=== PATIENT | male | born 1935 | race African-American/Black ===

== ENCOUNTER 2017-08-03 09:06 | Observation (INO) | payer OTHER ==
--- OUTSIDE RECORDS SUMMARY | 2017-08-03 09:09 | XMS REPORT | Clinical Summary ---
:1935 Author Organization [facility] Address [address] [place] [address] Care Team Providers Name Role Phone Asked, No Pcp Primary Care Provider Unavailable Allergies No Known Allergies Current Medications Not on file Active Problems Not on file Encounters Date Type Specialty Care Team Description 10/15/2016 Emergency Emergency Medicine ObiJyothi Altered mental status, MD Tania unspecified altered mental status type (Primary Dx) after 08/02/2016 Social History Tobacco Use Types Packs/Day Years Used Date Never Smoker Alcohol Use Drinks/Week oz/Week Comments No Sex Assigned at Date Recorded Not on file Last Filed Vital Signs Vital Sign Reading Time Taken Blood Pressure 99/53 10/15/2016 2:30 PM CDT Pulse 54 10/15/2016 2:30 PM CDT Temperature 36.8 C (98.3 F) 10/15/2016 2:30 PM CDT Respiratory Rate 17 10/15/2016 2:30 PM CDT Oxygen Saturation 98% 10/15/2016 2:30 PM CDT Inhaled Oxygen Concentration - - Weight - - Height 175.3 cm (5' 9") 10/15/2016 8:55 AM CDT Body Mass Index - - Plan of Treatment Health Maintenance Due Date Last Done Comments ZOSTER VACCINE 1997 PNEUMOCOCCAL POLYSACCHARIDE VACCINE AGE 65 AND OVER 2002 PNEUMOCOCCAL-13 2002 INFLUENZA VACCINE 11/29/2017 Results Bedside glucose (10/15/2016 10:57 AM) Component Value Ref Range POC glucose 107 Specimen Performing Laboratory Blood Urinalysis screen and microscopy, with reflex to culture (10/15/2016 10:15 AM) Component Value Ref Range Specimen site Catheterized Color, UA Straw Appearance, UA Clear Specific gravity, UA 1.012 1.001 - 1.035 pH, UA 7.0 5.0 - 8.5 Protein, UA Negative Negative Glucose, UA Negative Negative Ketones, UA Negative Negative Bilirubin, UA Negative Negative Blood, UA Negative Negative Nitrite, UA Negative Negative Urobilinogen, UA <2.0 <2.0 Leukocyte esterase, UA Negative Negative Epithelial cells, UA <1 /HPF WBC, UA <1 0 - 1 /HPF RBC, UA <1 0 - 1 /HPF Bacteria, UA Few None seen Yeast, UA None seen Yeast with pseudohyphae, UA None seen Specimen Performing Laboratory Urine [facility] OF PATHOLOGY AND [employer] MEDICINE [address] [facility] [place] [address] Estimated GFR (10/15/2016 10:15 AM) Component Value Ref Range GFR Non Af Amer 53 (A) mL/min/1.73 m2 GFR Af Amer 65 mL/min/1.73 m2 Comment: Chronic kidney disease: <60 mL/min/1.73m2 Kidney failure: <15 mL/min/1.73m2 The estimated GFR is calculated from the IDMS-traceable Modification of Diet in Renal Disease Equation. The accuracy of the calculation is poor when the creatinine is normal. Calculated values >90 mL/min/1.73m2 are not reported. This equation has not been validated in children (<18 years), women, the elderly (>70 years), or ethnic groups other than Caucasians and Americans. Specimen Performing Laboratory Plasma specimen [facility] AND [employer] [facility] [address] [facility] [place] [address] Troponin (10/15/2016 10:15 AM) Component Value Ref Range Troponin <0.10 0.00 - 0.10 ng/mL Comment: 0.11 - 1.49 ng/mlMay indicate increased risk of acute coronary syndrome. >=1.5 ng/mlConsistent with acute myocardial infarction. The diagnostic value of a single normal or non-diagnostic result is questionable.Serial samples at 2-6 hour intervals are required to rule out acute myocardial injury. Specimen Performing Laboratory Plasma specimen [facility] AND [employer] [facility] [address] [facility] [place] [address] Urine drugs of abuse screen (10/15/2016 10:15 AM) Component Value Ref Range Amphetamine screen, urine Negative Methamphetamine screen, urine SEE COMMENT Comment: Test Not Performed. Methamphetamines and Methadone are not available from the college athletic director. If needed, contact the Laboratory to send to the referral laboratory Barbiturate screen, urine Negative Benzodiazepine screen, urine Negative Cocaine screen, urine Negative Methadone screen, urine SEE COMMENTComment: Test Not Performed. Opiates screen, urine Negative Phencyclidine screen, urine Negative Cannabinoid screen, urine Negative Tricyclic screen, urine Negative Comment: Drug screen minimum concentration of detectability Wujsivmkweot0744 ng/mL Xkvqltchpgsyswha1421 ng/mL Barbiturates 300 ng/mL Ddmhljpuyaxnkwe510 ng/mL Rphnywv353 ng/mL Sokqkkqbr384 ng/mL Zsyvfrz144 ng/mL Phencyclidine 25 ng/mL Uzihwayitsru99 ng/mL Xrrvxrhsji6815 ng/mL Negative test results indicates presumptive evidence of lack of clinically significant drug concentration in this urine specimen. Positive test results are presumptive evidence of clinically significant drug concentration in this urine specimen. Testing performed for medical purposes only. Specimen Performing Laboratory Urine [facility] DEPARTMENT OF PATHOLOGY AND [employer] [facility] [address] [facility] [place] [address] Partial thromboplastin time, activated (10/15/2016 10:15 AM) Component Value Ref Range PTT 34.6 23.0 - 36.0 sec Comment: PTT therapeutic range for unfractionated heparin is 61.0-112.0 seconds which corresponds to Anti-Xa 0.3-0.7 U/ml. Specimen Performing Laboratory Blood [facility]OLOG[facility] AND [facility] [address] [facility] [place] [address] Prothrombin time with INR (10/15/2016 10:15 AM) Component Value Ref Range Prothrombin time 13.4 12.0 - 15.0 sec INR 1.0 Comment: The International Normalized Ratio (INR) is a therapeutic monitoring tool for patients who are stable on oral anticoagulant therapy. An INR of 2.0-3.0 is suggested for deep vein thrombosis/pulmonary embolism. Specimen Performing Laboratory Blood [facility] PATHOLOGY AND [employer] MEDICINE [address] [facility] [place] [address] CBC with platelet and differential (10/15/2016 10:15 AM) Component Value Ref Range WBC 4.38 (L) 4.50 - 11.00 k/uL RBC 4.29 (L) 4.40 - 6.00 m/uL HGB 11.9 (L) 14.0 - 18.0 g/dL HCT 35.0 (L) 41.0 - 51.0 % MCV 81.6 (L) 82.0 - 100.0 fL MCH 27.7 27.0 - 34.0 pg MCHC 34.0 31.0 - 37.0 g/dL RDW - SD 50.0 37.0 - 55.0 fL MPV 11.0 8.8 - 13.2 fL Platelet count 217 150 - 400 k/uL Neutrophils 53.1 39.0 - 69.0 % Lymphocytes 32.0 25.0 - 45.0 % Monocytes 13.9 (H) 0.0 - 10.0 % Eosinophils 0.5 0.0 - 5.0 % Basophils 0.5 0.0 - 1.0 % Specimen Performing Laboratory Blood [facility] [address] [place] [address] Urine culture (10/15/2016 10:15 AM) Component Value Ref Range Urine culture SEE COMMENTComment: Bacteriuria screen negative. Specimen Performing Laboratory [facility] [address] [place] [address] B natriuretic peptide (10/15/2016 10:15 AM) Component Value Ref Range BNP 160 (H) 0 - 100 pg/mL Specimen Performing Laboratory Blood [facility] PATHOLOGY [address] [address] Creatine kinase, total (CPK) (10/15/2016 10:15 AM) Component Value Ref Range Creatine kinase 152 35 - 200 U/L Specimen Performing Laboratory Plasma specimen [facility] PATHOLOGY [facility] MEDICINE [address] [place] [address] Alcohol level, blood (10/15/2016 10:15 AM) Component Value Ref Range Alcohol None Detected mg/dL Comment: Normal None Detected Legal Intoxication in [place]80 mg/dL (0.08%) - Whole Blood Toxic Chraqpebrwucy599 mg/dL (0.2%) Potentially Vkoce437 - 500 mg/dL (0.35 - 0.5%) Alcohol percent None Detected % Specimen Performing Laboratory Plasma specimen [facility] PATHOLOGY AND [facility] MEDICINE [address] [place] [address] Comprehensive metabolic panel (10/15/2016 10:15 AM) Component Value Ref Range Sodium 146 135 - 148 mEq/L Potassium 4.1 3.5 - 5.0 mEq/L Chloride 108 99 - 109 mEq/L CO2 29 24 - 31 mEq/L Anion gap 9 7 - 15 mEq/L Comment: Starting from July , anion gap calculation no longer incorporates potassium. Please note the change. BUN 24 8 - 24 mg/dL Creatinine 1.3 0.5 - 1.5 mg/dL Glucose 88 65 - 99 mg/dL Calcium 9.7 8.6 - 10.6 mg/dL Protein 7.8 6.3 - 8.2 g/dL Albumin 3.7 3.5 - 5.0 g/dL A/G ratio 0.9 0.7 - 3.8 Alkaline phosphatase 77 30 - 115 U/L AST 42 15 - 46 U/L ALT 47 10 - 55 U/L Total bilirubin 0.6 0.2 - 1.2 mg/dL Specimen Performing Laboratory Plasma specimen [facility] DEPARTMENT OF PATHOLOGY AND GENOMIC MEDICINE [address] [place] [address] ECG 12 lead (10/15/2016 9:24 AM) Component Value Ref Range Ventricular rate 85 Atrial rate 85 OH interval 164 QRSD interval 70 QT interval 372 QTC interval 442 P axis 1 92 QRS axis 1 -54 T wave axis 59 EKG impression Normal sinus rhythm-Possible Left atrial enlargement-Left axis deviation-ST & T wave abnormality, consider lateral ischemia-Abnormal ECG-No previous ECGs available- Specimen Performing Laboratory [facility] [address] [place] [address] CT Head Wo Contrast (10/15/2016 9:18 AM) Specimen Performing Laboratory [facility] [address] [place] [address] Narrative EXAMINATION:CT HEAD WO CONTRAST COMPARISON:None CLINICAL HISTORY:AMS TECHNIQUE: Up to date CT equipment and radiation dose reduction technique were utilized. FINDINGS: There are small vessel ischemic changes of the white matter. 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 There are no other areas of abnormal density. There is no mass or extra-axial fluid collection. The ventricles and sulci are prominent compatible with age-related volume loss. There are calcifications in the internal carotid arteries. The sinuses and mastoids are clear. IMPRESSION: Chronic age-related changes. [facility]-[id number] Procedure Note Interface, Radiology Results Incoming - 10/15/2016 9:23 AM CDT EXAMINATION: CT HEAD WO CONTRAST COMPARISON: None CLINICAL HISTORY: AMS TECHNIQUE: Up to date CT equipment and radiation dose reduction technique were utilized. FINDINGS: There are small vessel ischemic changes of the white matter. 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 There are no other areas of abnormal density. There is no mass or extra-axial fluid collection. The ventricles and sulci are prominent compatible with age-related volume loss. There are calcifications in the internal carotid arteries. The sinuses and mastoids are clear. IMPRESSION: Chronic age-related changes. [facility]-[id number] XR Chest 1 Vw Portable (10/15/2016 9:14 AM) Specimen Performing Laboratory [facility] [address] [place] [address] Narrative EXAMINATION:XR CHEST 1 VW PORTABLE CLINICAL HISTORY:AMSr o pneumonia COMPARISON:None IMPRESSION: 1.Lungs are clear. 2.Normal heart size. Coronary stent. 3.Mild tortuosity and atherosclerosis thoracic aorta. 4.Sternotomy wires are intact. [facility]-[id number] Procedure Note Interface, Radiology Results Incoming - 10/15/2016 9:18 AM CDT EXAMINATION: XR CHEST 1 VW PORTABLE CLINICAL HISTORY: AMS r o pneumonia COMPARISON: None IMPRESSION: 1. Lungs are clear. 2. Normal heart size. Coronary stent. 3. Mild tortuosity and atherosclerosis thoracic aorta. 4. Sternotomy wires are intact. [facility]-[id number] after 08/02/2016 Insurance Payer Benefit Plan / Group Subscriber ID Type Phone Address MEDICARE MEDICARE PART A AND B xxxxxxxxxxx Medicare [place], [place] MEDICAID MEDICAID xxxxxxxxx Medicaid Home: [facility] [place]UN VELASQUEZ [phone] [address]
--- OUTSIDE RECORDS SUMMARY | 2017-08-03 09:09 | XMS REPORT ---
:1935 [facility] Address [address] [place] [address] [place] [address] Care Team Providers Name Role Phone DR NOELLE GOLD Unavailable Unavailable Problems This patient has no known problems. Allergies, Adverse Reactions, Alerts This patient has no known allergies or adverse reactions. Medications This patient has no known medications. Encounters Start End Encounter Admission Attending Care Care Encounter Date/Time Date/Time Type Type Clinicians Facility Department ID 2017-05-20 2017-05-31 Inpatient E AMPARO GOLDYahaira KSU [id number] 16:47:00 12:30:00 NOELLE Results Test Description Test Time Test Comments Text Results Atomic Results Result Comments URINALYSIS WITH MICRO 2017-05-20 19:19:00 Test Item Value Reference Range Comments COLOR (test code=COLU) YELLOW YELLOW CLARITY (test code=CLA) CLEAR CLEAR GLUCOSE UR (test code=UA GLUCOSE) NEGATIVE NEGATIVE BILI UR (test code=BILE) NEGATIVE NEGATIVE KETONES UR (test code=KALYAN) NEGATIVE NEGATIVE SP GRAVITY (test code=SPGR) 1.015 1.005-1.030 PH UR (test code=PH) 6.0 4.5-8.0 PROTEIN UR (test code=PU) TRACE NEGATIVE UROBIL UR (test code=UROQ) 1.0 EU/dL 0.2-1.0 NITRITE UR (test code=NITRITE) NEGATIVE NEGATIVE BLOOD UR (test code=UA BLOOD) NEGATIVE NEGATIVE LEUK ES UR (test code=LEUK) NEGATIVE NEGATIVE WBC UR (test code=UWBC) 1 /HPF 0-3 RBC UR (test code=URBC) 0 /HPF 0-2 EPITH UR (test code=UEPC) NONE /LPF NONE BACTERIA UR (test code=UBACT) FEW /HPF NONE CAST UR (test code=CAST) /LPF NONE CRYSTAL UR (test code=CRYU) / LPF NONE MUCUS UR (test code=MUC) / HPF NONE AMORPH UR (test code=DOE) / HPF NONE TRICH UR (test code=UTRICH) /HPF NONE YEAST UR (test code=UY) /HPF NONE SPERM UR (test code=USPERM) /HPF NONE COMPREHENSIVE METABOLIC [id number] 19:16:00 Test Item Value Reference Range Comments GLUCOSE (test code=06D) 83 mg/dL 75-100 SODIUM (test code=01A) 143 mmol/L 136-145 POTASSIUM (test code=01B) 4.5 mmol/L 3.6-5.1 CHLORIDE (test code=04A) 112 mmol/L 98-107 CO2 (test code=02A) 22 mmol/L 22-32 ANION GAP (test code=ANG) 13.5 mmol/L BUN (test code=05D) 15 mg/dL 7-18 CREATININE (test code=03E) 1.4 mg/dL 0.7-1.3 BUN/CREA (test code=BCR) 11 12-20 CALCIUM (test code=09D) 8.2 mg/dL 8.3-9.5 BILI TOTAL (test code=11A) 0.3 mg/dL 0.2-1.0 PROTEIN (test code=07D) 7.3 g/dL 6.4-8.2 ALBUMIN (test code=08D) 3.5 g/dL 3.5-4.8 GLOBULIN (test code=GLB) 3.8 g/dL 1.5-3.8 ALB/GLOB (test code=AGRR) 0.9 1.0-2.6 ALK PHOS (test code=35A) 57 IU/L 42-121 AST (test code=30A) 48 IU/L <=42 ALT (test code=31A) 43 IU/L <=78 ALCOHOL BLOOD (ETOH)2017-05-20 19:16:00 Test Item Value Reference Range Comments ETOH (test code=HALC) ETHANOL The result is to be used only for medical purposes ALCOHOL (test code=56A) <10 mg/dL <=10 [id number] 19:16:00 Test Item Value Reference Range Comments ACETAMINPH (test code=94M) <2.0 ug/mL 10.0-30.0 DRUGS OF [id number] 19:12:00 Test Item Value Reference Range Comments DRUG SCRN (test code=HDOA) URINE DRUG SCREEN This is an unconfirmed screening result and should not be used for non-medical purposes CANNABINOD (test code=88C) Negative NEGATIVE AMPHETAMINE (test code=84A) Negative NEGATIVE BENZODIAZP (test code=86A) Negative NEGATIVE BARBITURAT (test code=85A) Negative NEGATIVE OPIATES (test code=92B) Negative NEGATIVE COCAINE (test code=87A) Negative NEGATIVE PHENCYCLID (test code=66A) Negative NEGATIVE METHADONE (test code=64A) Negative NEGATIVE DOAH (test code=DOAH) URINE DRUG SCREEN Cut-off values are as follows: ---- Cannabinoids 50 ng/mL Cocaine 300 ng/mL Amphetamines 1000 ng/mL Phencyclidine 25 ng/mL Benzodiazepines 200 ng.mL Methadone 300 ng/mL Barbiturates 200 ng/mL Opiates 2000 ng/mL AMMONIA [id number] 19:01:00 Test Item Value Reference Range Comments AMMONIA (test code=54A) 20 umol/L 11-32 XR CHEST 1 VIEW [id number] 17:10:18Exam: Chest portable erectLocation: D4.History: medical clearanceComparison: NoneFindings:The lungs are clear. No infiltrate or effusion is seen. The pulmonaryvasculature is normal. The heart size is mildly enlarged. 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 Atherosclerosis involves the aorta. The mediastinalsilhouette is unremarkable. The bony thorax is intact with degenerative changesnoted.Impression:No acute disease.
[2017-08-03 10:19] LABS: Absolute Lymphocytes (CBC) 0.5 K/uL (0.7-4.9); Absolute Monocytes 0.3 K/uL (0.1-1.3); Absolute Neutrophil 3.4 K/uL (1.8-8.0); Basophils % 0.5 % (0-1.3); Eosinophils % 0.9 % (0-4.4); Hematocrit 31.1 % (39.6-49.0); Lymphocytes % 12.7 % (15.3-44.8); MCH 29.5 pg (27.0-35.0); MCV 88.5 fL (80-100); MPV 9.6 fL (7.6-11.3); Monocytes % 7.4 % (3.3-12.3); RBC Red Blood Cell Count 3.51 M/uL (4.33-5.43)
--- NOTE | 2017-08-03 10:30 | RAD REPORT ---
EXAM DESCRIPTION: Anish Single View08/03/2017 9:39 am CLINICAL HISTORY: Cough COMPARISON: March 2017 FINDINGS: Mild interstitial lung opacities are unchanged. The heart is mildly enlarged. Postsurgica l changes involve the chest IMPRESSION: Mild interstitial pulmonary opacities may represent mild interstitial pulmonary edema or be chronic
--- NOTE | 2017-08-03 10:40 | RAD REPORT ---
EXAM DESCRIPTION: CT - Head Brain Wo Cont - 08/03/2017 10:26 am CLINICAL HISTORY: CVA COMPARISON: 04/26/2017 TECHNIQUE: All CT scans are performed using dose optimization technique as appropriate and may inclu de automated exposure control or mA/KV adjustment according to patient size. FINDINGS: No intracranial hemorrhage, hydrocephalus or extra-axial fluid collection.Advanced general ized brain atrophy is present with advanced periventricular and deep white matter chronic microvascul ar ischemic changes.No areas of brain edema or evidence of midline shift. The paranasal sinuses and mastoids are clear. The calvarium is intact. IMPRESSION: No acute intracranial abnormality.
[2017-08-03] MEDS ORDERED: IPRATROPIUM BROM 0.5MG/2.5ML ONE (10:44)
[2017-08-03] MEDS ORDERED: ALBUTEROL 2.5 MG/3 ML NEB SOL ONE (10:44)
[2017-08-03] MEDS ORDERED: predniSONE 20 MG TAB ONE (10:44)
[2017-08-03 12:11] LABS: Protime INR 1.23
[2017-08-03 12:20] LABS: Potassium 4.1 mEq/L (3.6-5.0)
[2017-08-03 12:26] LABS: Albumin 3.6 g/dL (3.2-5.5); Bilirubin Direct 0.3 mg/dL (0-0.2); Magnesium 2.2 mg/dL (1.8-2.5); Protein, Total 7.2 g/dL (6.0-8.3)
[2017-08-03 12:29] LABS: CKMB Creatine Kinase MB 3.1 ng/ml (0.3-4.0)
[2017-08-03 12:37] LABS: Urine Amorphous Sediment 2+ /HPF (NONE SEEN); Urine Bacteria <20 /HPF (NONE SEEN); Urine Culture Reflex Order NOT NEEDED; Urine RBC <5 /HPF (NONE SEEN)
[2017-08-03] MEDS ORDERED: NITROGLYCERIN 1 GM PKT TD ONE (13:16)
[2017-08-03] MEDS ORDERED: CLOPIDOGREL 75 MG TABLET ONE (13:17)
[2017-08-03] MEDS ORDERED: ASPIRIN 325 MG TAB ONE (13:17)
--- NOTE | 2017-08-03 13:28 | EDPHYS ---
Physician Documentation [facility] Name: Ace Zuniga Age: 81 yrs Sex: Male : 1935 Arrival Date: 08/03/2017 Time: 09:12 Bed 4 Private MD: ED Physician Ralph Roque HPI: 08/03 12:38 This 81 yrs old Black Male presents to ER via EMS with complaints of Cough, Shortness pm1 Of Breath, Weakness. 12:38 The patient has shortness of breath at rest. Onset: The symptoms/episode began/occurred pm1 yesterday. Associated signs and symptoms: Pertinent positives: Cough, Pertinent negatives: chest pain, fever, nausea, vomiting. Severity of symptoms: Pain is currently a 0 / 10. The patient has not experienced similar symptoms in the past. The patient has been recently seen by a physician:. 12:38 Seen by his PCP for cough evaluation on 08/02. Impression atelectasis at that time and pm1 treated with nebulizer therapy with planned follow up chest X-ray. Patient sent to the ER from [facility] due to hypotension 99/76 and shortness of breath. Patient had a nonproductive cough for 2-3 days. Patient is alert to self only. Patient complaining of shortness of breath. No chest pain. . 12:38 patient did not get any of his medications this AM per prison RN. pm1 Historical: - Allergies: 09:21 No Known Allergies; ae1 - PMHx: 09:21 Alzheimers; Diabetes - NIDDM; GERD; Hyperlipidemia; Hypertension; Myocardial ae1 infarction; weakness,generalized; - Immunization history:: Adult Immunizations up to date. - Social history:: Smoking status: unknown. ROS: 13:00 Constitutional: Negative for fever, chills, and weight loss, Eyes: Negative for injury, pm1 pain, redness, and discharge, ENT: Negative for injury, pain, and discharge, Neck: Negative for injury, pain, and swelling, Cardiovascular: Negative for chest pain, palpitations, and edema. 13:00 Abdomen/GI: Negative for abdominal pain, nausea, vomiting, diarrhea, and constipation, Back: Negative for injury and pain, : Negative for injury, bleeding, discharge, and swelling, MS/Extremity: Negative for injury and deformity, Skin: Negative for injury, rash, and discoloration. 13:00 Respiratory: Positive for cough, shortness of breath, Negative for sputum production. 13:00 Neuro: Positive for weakness, Negative for syncope, near syncope. 13:00 Unable to obtain ROS due to baseline dementia, alzheimers. Exam: 13:00 Constitutional: This is a well developed, well nourished patient who is awake, alert, pm1 and in no acute distress. Head/Face: Normocephalic, atraumatic. Eyes: Pupils equal round and reactive to light, extra-ocular motions intact. Lids and lashes normal. Conjunctiva and sclera are non-icteric and not injected. Cornea within normal limits. Periorbital areas with no swelling, redness, or edema. ENT: Nares patent. No nasal discharge, no septal abnormalities noted. Tympanic membranes are normal and external auditory canals are clear. Oropharynx with no redness, swelling, or masses, exudates, or evidence of obstruction, uvula midline. Mucous membranes moist. Neck: Trachea midline, no thyromegaly or masses palpated, and no cervical lymphadenopathy. Supple, full range of motion without nuchal rigidity, or vertebral point tenderness. No Meningismus. Chest/axilla: Normal chest wall appearance and motion. Nontender with no deformity. No lesions are appreciated. 13:00 Abdomen/GI: Soft, non-tender, with normal bowel sounds. No distension or tympany. No guarding or rebound. No evidence of tenderness throughout. Back: No spinal tenderness. No costovertebral tenderness. Full range of motion. Skin: Warm, dry with normal turgor. Normal color with no rashes, no lesions, and no evidence of cellulitis. MS/ Extremity: Pulses equal, no cyanosis. Neurovascular intact. Full, normal range of motion. 13:00 Cardiovascular: Rate: normal, Rhythm: regular, Pulses: no pulse deficits are appreciated, Edema: pedal edema, that is mild. 13:00 Respiratory: the patient does not display signs of respiratory distress, Respirations: normal, Breath sounds: rhonchi, are heard diffusely. Vital Signs: 09:13 BP 153 / 107; Pulse 100; Resp 23; Pulse Ox 91% on R/A; ae1 09:43 Temp 98.1(O); Weight 64.41 kg (R); ae1 09:43 BP 165 / 108; Pulse 76; Resp 24; Pulse Ox 97% on 2 lpm NC; mh5 10:56 BP 162 / 108; Pulse 93; Resp 25 S; Pulse Ox 98% on 8% Nebulizer Mask; ae1 11:59 BP 155 / 106; Pulse 91; Resp 20; Pulse Ox 98% on 2 lpm NC; ae1 13:22 BP 152 / 88; Pulse 73; Resp 23; Pulse Ox 98% on 2 lpm NC; ae1 MDM: 09:24 Patient medically screened. pm1 12:23 Data reviewed: vital signs. pm1 13:21 Data interpreted: Pulse oximetry: on 2L(s) per nasal canula, is 98 %. Interpretation: pm1 normal. Counseling: I had a detailed discussion with the patient and/or guardian regarding: the historical points, exam findings, and any diagnostic results supporting the discharge/admit diagnosis, lab results, radiology results, the need for further work-up and treatment in the hospital. 08/03 09:25 Order name: Basic Metabolic Panel; Complete Time: 12:48 pm08/03 09:25 Order name: BNP; Complete Time: 12:29 pm08/03 09:25 Order name: CBC with Diff; Complete Time: 10:30 pm08/03 09:25 Order name: Ckmb; Complete Time: 12:48 pm08/03 09:25 Order name: CPK; Complete Time: 12:48 pm08/03 09:25 Order name: LFT's; Complete Time: 12:48 pm08/03 09:25 Order name: Magnesium; Complete Time: 12:48 pm08/03 09:25 Order name: PT-INR; Complete Time: 12:48 pm08/03 09:25 Order name: Ptt, Activated; Complete Time: 12:48 pm1 08/03 09:25 Order name: Troponin (emerg Dept Use Only); Complete Time: 12:29 pm08/03 09:50 Order name: Blood Culture EDMS 08/03 09:25 Order name: XRAY Chest (1 view); Complete Time: 10:31 pm1 08/03 09:25 Order name: EKG; Complete Time: 09:26 pm08/03 09:25 Order name: Cardiac monitoring; Complete Time: 09:43 pm08/03 09:25 Order name: EKG - Nurse/Tech; Complete Time: 09:43 pm1 08/03 09:25 Order name: IV Saline Lock; Complete Time: 10:13 pm1 08/03 09:33 Order name: CT Head Brain wo Cont; Complete Time: 10:48 pm1 08/03 09:50 Order name: Procalcitonin; Complete Time: 13:28 ss 08/03 09:50 Order name: Lactate; Complete Time: 12:29 ss 08/03 11:53 Order name: Urine Microscopic Only; Complete Time: 12:48 ae1 08/03 12:00 Order name: Urine Dipstick--Ancillary (enter results) ag 08/03 14:44 Order name: Diet Ada 1800 Stu; Complete Time: 14:44 ae1 08/03 09:25 Order name: Labs collected and sent; Complete Time: 11:53 pm1 08/03 09:25 Order name: O2 Per Protocol; Complete Time: 09:43 pm1 08/03 09:25 Order name: O2 Sat Monitoring; Complete Time: 09:43 pm1 08/03 09:25 Order name: Urine Dipstick-Ancillary (obtain specimen); Complete Time: 11:53 pm1 08/03 11:54 Order name: Straight Cath - Urine; Complete Time: 11:54 ae1 Administered Medications: 10:24 Drug: Albuterol - atroVENT (3:1) (2.5 mg - 0.5 mg) 3 ml Route: Nebulizer; ae1 12:17 Follow up: Response: Wheezing diminished ae1 10:40 Drug: predniSONE 60 mg Route: PO; ae1 13:00 Drug: Nitro-Bid Ointment 2 % 1 inches Route: Transdermal; Site: anterior chest wall; ae1 13:23 Follow up: Response: Blood sugar is lowered ae1 13:08 Drug: Aspirin 325 mg Route: PO; ae1 13:08 Drug: PlaVIX 75 mg Route: PO; ae1 Disposition: 16:15 Co-signature as Attending Physician, Ralph Roque MD I agree with the assessment and hood plan of care. Disposition: 08/03/17 13:27 Hospitalization ordered by Rosey Miranda for Observation. Preliminary diagnosis are Acute combined systolic (congestive) and diastolic (congestive) heart failure, Shortness of breath. - Bed requested for Telemetry/MedSurg (observation). - Status is Observation. ae1 - Condition is Stable. - Problem is new. - Symptoms have improved. UTI on Admission? No Signatures: Dispatcher [employer] EDRalph Mckeon, Yanira Chavis MD, cha, Patrick, BEATER ENGINEER HELPER BEATER ENGINEER HELPER pm1 Camacho Mathur, RN RN ae1
--- NOTE | 2017-08-03 13:28 | ER ---
Nurse's Notes [facility] Name: Ace Zuniga Age: 81 yrs Sex: Male : 1935 Arrival Date: 08/03/2017 Time: 09:12 Bed 4 Private MD: Diagnosis: Acute combined systolic (congestive) and diastolic (congestive) heart failure;Shortness of breath Presentation: 08/03 09:34 Presenting complaint: EMS states: SOB, weakness and cough since yesterday. Transition ae1 of care: [facility]. Onset of symptoms was August 02, 2017 at 08:00. Care prior to arrival: Orthostatics stable, v/s, pulsein the 80s, 152/94, O2 96%. 09:34 Method Of Arrival: EMS: [facility] ae1 09:34 Acuity: SYLVAIN 3 ae1 Triage Assessment: 10:15 General: Appears in no apparent distress. uncomfortable, slender, Behavior is calm, ae1 quiet. Pain: Denies pain. Respiratory: Reports shortness of breath cough that is productive, labored breathing Onset: The symptoms/episode began/occurred gradually. Respiratory: the patient has moderate shortness of breath. Historical: - Allergies: 09:21 No Known Allergies; ae1 - PMHx: 09:21 Alzheimers; Diabetes - NIDDM; GERD; Hyperlipidemia; Hypertension; Myocardial ae1 infarction; weakness,generalized; - Immunization history:: Adult Immunizations up to date. - Social history:: Smoking status: unknown. Screenin:04 Abuse screen: Denies threats or abuse. Nutritional screening: No deficits noted. ae1 Tuberculosis screening: No symptoms or risk factors identified. Fall Risk Secondary diagnosis (15 points) Alzheimer's, IV access (20 points). Ambulatory Aid- None/Bed Rest/Nurse Assist (0 pts). Gait- Weak (10 pts.). Mental Status- Overestimates/Forgets Limitations (15 pts.). Assessment: 09:37 Pain: Denies pain. Neuro: Level of Consciousness is awake, obeys commands, Oriented to ae1 person. Cardiovascular: Heart tones S1 S2 present Patient's skin is warm and dry. Rhythm is regular. Respiratory: Airway is patent Respiratory effort is even, with retractions, shallow, Mildly labored. Respiratory: Breath sounds are diminished in left posterior lower lobe, right posterior middle lobe and right posterior lower lobe Breath sounds with wheezes in left posterior upper lobe and right posterior upper lobe. GI: Abdomen is flat, non-distended, Bowel sounds present X 4 quads. : No signs and/or symptoms were reported regarding the genitourinary system. Patient is wearing adult brief. 11:06 Reassessment: automotive specialty technician at bedside attempting to obtain the rest of blood orders. ae1 EENT: No signs and/or symptoms were reported regarding the EENT system. Derm: Skin is normal. Musculoskeletal: Reports Generalized weakness. 11:59 Reassessment: Patient appears less labored, ISHMAEL wheezes still present but decreased. ae1 12:40 Reassessment: Spoke to RENETTA Dacosta via telephone at [facility], Praneeth states ae1 patient has not had any of his scheduled medications today. Praneeth also states patient's baseline neuro status is oriented to self. 14:03 Reassessment: New brief applied, omar-area cleansed, patient repositioned with total ae1 assist. Pillow and warm blankets applied. 14:37 Reassessment: urinal provided, patient encouraged to urinate to provide urine sample. ae1 Patient attempted to provide urine, patient states he is unable to urinate at this time but will continue to try. Will continue to monitor. 15:16 Reassessment: Per provider ok to cancel blood cultures. ae1 15:19 Reassessment: Report called to [place], via telephone, receiving nurse. Registration ae1 notified that report has been called. Vital Signs: 09:13 BP 153 / 107; Pulse 100; Resp 23; Pulse Ox 91% on R/A; ae1 09:43 Temp 98.1(O); Weight 64.41 kg (R); ae1 09:43 BP 165 / 108; Pulse 76; Resp 24; Pulse Ox 97% on 2 lpm NC; mh5 10:56 BP 162 / 108; Pulse 93; Resp 25 S; Pulse Ox 98% on 8% Nebulizer Mask; ae1 11:59 BP 155 / 106; Pulse 91; Resp 20; Pulse Ox 98% on 2 lpm NC; ae1 13:22 BP 152 / 88; Pulse 73; Resp 23; Pulse Ox 98% on 2 lpm NC; ae1 ED Course: 09:12 Patient arrived in ED. ae1 09:13 Camacho Mathur, RENETTA is Primary Nurse. ae1 09:19 Harrison Cox NP is PHCP. pm1 09:19 Ralph Roque MD is Attending Physician. pm1 09:34 EKG done, by video game technician. reviewed by Harrison Cox NP. at1 09:36 X-ray completed. Portable x-ray completed in exam room. Patient tolerated procedure sw well. 09:37 Triage completed. ae1 09:37 Missed attempt(s): 22 gauge in right antecubital area. mh5 09:39 XRAY Chest (1 view) In Process Unspecified. EDMS 09:43 Arm band placed on right wrist. EKG completed in triage. Results shown to MD. ae1 09:44 Bed in low position. Call light in reach. Side rails up X 1. proposal editor on. Pulse ae1 ox on. NIBP on. Warm blanket given. 10:17 CT completed. Patient tolerated procedure well. Patient moved to CT via stretcher. sj Patient moved back from CT. 10:18 Inserted saline lock: 20 gauge in right EJ, using aseptic technique. ,using aseptic ae1 technique. By Harrison Cox NP Blood collected. Missed attempt(s): 22 gauge in left antecubital area. 10:28 CT Head Brain wo Cont In Process Unspecified. EDMS 11:57 Straight cath inserted, using sterile technique, Specimen obtained. 15 FR Returned ae1 clear yellow urine. Patient tolerated well. 13:22 Rosey Miranda MD is Hospitalizing Provider. pm1 15:44 No provider procedures requiring assistance completed. Patient admitted, IV remains in ae1 place. Administered Medications: 10:24 Drug: Albuterol - atroVENT (3:1) (2.5 mg - 0.5 mg) 3 ml Route: Nebulizer; ae1 12:17 Follow up: Response: Wheezing diminished ae1 10:40 Drug: predniSONE 60 mg Route: PO; ae1 13:00 Drug: Nitro-Bid Ointment 2 % 1 inches Route: Transdermal; Site: anterior chest wall; ae1 13:23 Follow up: Response: Blood sugar is lowered ae1 13:08 Drug: Aspirin 325 mg Route: PO; ae1 13:08 Drug: PlaVIX 75 mg Route: PO; ae1 Outcome: 13:27 Decision to Hospitalize by Provider. pm1 15:44 Admitted to [facility] accompanied by tech, via stretcher, room 402, on monitor, with chart, ae1 Report called to nurse [place] 15:44 Condition: stable 15:44 Instructed on the need for admit, Demonstrated understanding of instructions. 15:45 Patient left the ED. ae1 Signatures: Dispatcher [employer] Avani Lee Amanda, team coordinator EKG Tat1 Kathryn Bell Patrick, [employer] CLINICAL SPECIALIST pm1 Camacho Mathur RN RN ae1 Damaris Pepe [facility]
[2017-08-03] MEDS ORDERED: ALBUTEROL 2.5 MG/3 ML NEB SOL NEB PRN (14:01)
[2017-08-03] MEDS ORDERED: ONDANSETRON 4 MG/2 ML VIAL IV PRN (14:01)
[2017-08-03] MEDS ORDERED: ACETAMINOPHEN 500 MG TAB PO PRN (14:01)
[2017-08-03 15:08] LABS: Urine Blood NEGATIVE (NEG); Urine Glucose NEGATIVE (NEG); Urine Protein 1+ (NEG); Urine Specific Gravity 1.025 (1.005-1.030); Urine pH 5.5 (5.0-7.0)
[2017-08-03] MEDS ORDERED: ENOXAPARIN 30 MG/0.3 ML SQ SCH (17:00)
[2017-08-03] MEDS ORDERED: D50W 25 GM/50 ML SYRINGE IV PRN (17:06)
[2017-08-03] MEDS: INSULIN -REGULAR HUMAN 50 UNIT/0.5 ML ML SQ SCH ×2 (17:06→21:00)
[2017-08-03] MEDS ORDERED: GLUCAGON 1 MG/VIAL IM PRN (17:06)
[2017-08-03] MEDS: CARVEDILOL 25 MG TAB PO SCH (18:21)
[2017-08-03] MEDS: FUROSEMIDE 40 MG/4 ML VIAL IV SCH (18:22)
--- NOTE | 2017-08-04 02:43 | HP ---
Date of Admission: 08/03/2017 Chief Complaint: Shortness of breath. Code Status: Full. Primary Care Physician: Dr. John Bowie. History Of Present Illness: The patient is a 81-year-old male with past medical history of coronary artery disease, COPD, non-oxygen dependent, anemia, hyperlipidemia, hypertension, chronic kidney issues, diabetes, Alzheimer's, and GERD, who was in his usual state of health as a resident of [facility], who had recent onset of shortness of breath and cough. It should be noted that the history is limited due to the patient's medical condition and his Alzheimer dementia and largely obtained from ER staff and previous medical records. The patient also had some swelling in his lower extremities. The patient's symptoms are constant, moderate, and progressive in nature. The patient denies any alleviating or aggravating factor. The patient was sent to the ER for further evaluation of his symptoms. Upon arrival, his vital signs were stable. He was 91% on room air. The patient was started on oxygen, and his O2 saturations improved. The patient was started on some breathing treatments and was given nitroglycerin paste and had improvement in his condition. The patient was then referred for admission. When seen in the ER, the patient was awake, alert, oriented to self only, and not in any acute distress. Past Medical History: 1. Coronary artery disease. 2. Chronic obstructive pulmonary disease, non-oxygen dependent. 3. Anemia. 4. History of myocardial infarction. 5. Hyperlipidemia. 6. Hypertension. 7. Chronic kidney issues. 8. Diabetes. 9. Alzheimer disease. 10. Gastroesophageal reflux disease. 11. Cerebrovascular accident. Past Surgical History: The patient denies any surgical history. Medications: Reviewed. Allergies: NO KNOWN DRUG ALLERGIES. Social History: The patient denies any alcohol use, tobacco use, or illicit drug use. Family History: Unknown. The patient is unable to provide family history. Review of Systems: An 11-point system reviewed and negative except as per HPI. Physical Examination: Vital Signs: Blood pressure 152/107, pulse 100, respirations 23, and O2 of 91% on room air. General: Awake, alert, oriented to self only, mildly ill-appearing elderly male , cachectic. HEENT: Normocephalic, atraumatic. PERRLA. EOMI. Moist mucous membranes. The patient is edentulous. Conjunctivae are anicteric. Neck: Supple. Trachea midline. Cardiovascular: S1 and S2. No murmurs. Regular rate and rhythm. Peripheral pulses are weak bilaterally. Respiratory: Diminished breath sounds. Some crackles. No wheezing or stridor. Gastrointestinal: Abdomen is soft, nontender, and nondistended. Positive bowel sounds. No guarding or rigidity. Extremities: No clubbing or cyanosis; 1+ edema. No calf tenderness. Neurologic: Cranial nerves 2 through 12 are intact grossly. The patient is unable to fully cooperate with examination. Nonfocal. Speech is normal. Skin: No rashes. Normal skin turgor. Psychiatric: Deferred. Laboratory Data: UA is negative. Sodium 140, potassium 4.1, chloride 114, CO2 of 20, BUN 30, creatinine 1.14, glucose 106, lactic acid 10.8, calcium 9, and magnesium 2.2. Troponin 0.04. BNP 2323. Procalcitonin 0.09. INR 1.23. WBC 4.3, H and H 10.3 and 31.1, and platelets 207. Imaging: Chest x-ray shows mild interstitial pulmonary opacities, may represent mild interstitial pulmonary edema or be chronic. Personally reviewed CT scan of the head shows no acute intracranial abnormalities. Assessment And Plan: A 81-year-old male with; 1. Acute diastolic heart failure. Ejection fraction from 03/2017 shows 40% to 44% and systolic dysfunction. We will continue with congestive heart failure guidelines. IV Lasix. Monitor I's and O's. Fluid restriction. Cardiology has been consulted. 2. Chronic kidney disease stage 3. 3. Elevated troponin, likely secondary to congestive heart failure. 4. Hyperlipidemia. Continue statin. 5. History of myocardial infarction and coronary artery disease, holy cross artery and holy cross heart, without angina. Chest pain-free. 6. Diabetes mellitus type 2 with hyperglycemia, without long-term use of insulin. We will continue sliding scale insulin. 7. Normocytic-normochromic anemia. Monitor H and H. Likely anemia of chronic disease. 8. Chronic obstructive pulmonary disease, not oxygen dependent. We will continue with nebulizer treatments. 9. History of cerebrovascular accident, left frontal lobe. 10. Essential hypertension. We will resume home medications. 11. Alzheimer dementia, early onset, without behavioral disturbance. Plan: Admit the patient to Med-Surg, place as observation. /DIAMOND Voice ID: [id number] ANNE MARIE
[2017-08-04 04:46] VITALS: BMI 17.9
[2017-08-04 06:04] LABS: Absolute Lymphocytes (CBC) 0.5 K/uL (0.7-4.9); Absolute Monocytes 0.3 K/uL (0.1-1.3); Absolute Neutrophil 1.9 K/uL (1.8-8.0); Basophils % 0.6 % (0-1.3); Hematocrit 31.9 % (39.6-49.0); Lymphocytes % 18.3 % (15.3-44.8); MCH 29.4 pg (27.0-35.0); MCV 88.4 fL (80-100); Monocytes % 11.9 % (3.3-12.3); RBC Red Blood Cell Count 3.61 M/uL (4.33-5.43)
[2017-08-04] MEDS: CARVEDILOL 25 MG TAB PO SCH (06:12)
[2017-08-04 06:14] LABS: Potassium 4.8 mEq/L (3.6-5.0)
[2017-08-04] MEDS: INSULIN -REGULAR HUMAN 50 UNIT/0.5 ML ML SQ SCH ×2 (07:30→11:24)
[2017-08-04 07:41] LABS: Anisocytosis 1+; Blood Morphology Comment NOTED (NOT SEEN); Macrocytosis SLIGHT; Platelet Estimate ADEQ; Urine White Blood Cell Casts OK
[2017-08-04 07:42] LABS: Burr Cells 1+
[2017-08-04] MEDS ORDERED: NITROGLYCERIN 0.4 MG/TAB SL PRN (07:56)
[2017-08-04] MEDS ORDERED: CARVEDILOL 12.5 MG TAB PO SCH (09:00)
[2017-08-04] MEDS ORDERED: MEMANTINE HCL 10 MG TABLET PO SCH (09:00)
[2017-08-04] MEDS: FUROSEMIDE 40 MG/4 ML VIAL IV SCH (09:00)
[2017-08-04] MEDS ORDERED: CLOPIDOGREL 75 MG TABLET PO SCH (09:00)
[2017-08-04] MEDS ORDERED: ISOSORBIDE DINITRATE PO SCH (09:00)
[2017-08-04] MEDS ORDERED: ASPIRIN 325 MG TAB PO SCH (09:00)
[2017-08-04] MEDS ORDERED: HYDRALAZINE HCL 25 MG TABLET PO SCH (09:00)
[2017-08-04] MEDS ORDERED: LISINOPRIL 20 MG TAB PO SCH ×2 (09:00)
[2017-08-04] MEDS ORDERED: ISOSORBIDE DINIT 20 MG TAB PO SCH (09:00)
[2017-08-04] MEDS ORDERED: DULOXETINE 30 MG CAP PO SCH (09:00)
[2017-08-04] MEDS ORDERED: RISPERIDONE 0.25 MG TABLET PO SCH (09:00)
[2017-08-04] MEDS ORDERED: SPIRONOLACTONE 25 MG TABLET PO SCH (09:00)
[2017-08-04] MEDS: FUROSEMIDE 40 MG TABLET PO SCH ×2 (09:19→09:25)
[2017-08-04 10:45] VITALS: O2SAT 100
[2017-08-04 11:28] VITALS: BP 100/61; TEMP 98
[2017-08-04 11:41] LABS: A1c Component 0.42 mg/dL; Hemoglobin A1c 5.6 % (4-6.0)
--- NOTE | 2017-08-04 13:34 | CON ---
Chief Complaint: Shortness of breath and chest pain. History Of Present Illness: Mr. 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 It is clear that he had byp ass surgery. We think it may have been 10 years ago. He does not know where he was when he had it d one. He has significant dementia and memory loss. He had a [facility]. He has a frontal lobe stroke without any significant carotid stenosis. He did not undergo revascularization. He has underlying congestive heart failure with EF in the 40s, hypertensi on, remote history of smoking. He does not have diabetes and he is a patient who takes Lipitor as an outpatient. Outpatient Medications: Plavix, Pepcid, nitroglycerin, memantine, lisinopril, isosorbide, hydralazin e, duloxetine, Aricept, Coreg, atorvastatin, spironolactone, aspirin, and isosorbide dinitrate. Physical Examination: General: He is awake, alert, confused. He is oriented to person and he knows he is in the hospital, does not know the name of the hospital. Does not know the day. 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 Lungs: Clear. There is no carotid bruit. Heart: Significant for an S4 gallop. One to 2/6 holosystolic murmur. Abdomen: Soft. Extremities: palpable pulses. Trace edema. Laboratory Data: Shows sinus rhythm, nonspecific repolarization abnormality. No infarction, injury, or ischemia. He has a troponin level that is 0.04, just the lowest it can be and still be called ab normal. B-natriuretic peptide is elevated. Impression: Mr. Zuniga's overall condition dictates I think accurately that we should pursue only a m edical therapy for him. I think, he is actually on good medical therapy. Perhaps a diuretic would b e useful to add to what he is already on. I feel sure in the long-term he has a fairly high salt diet and that might help. Hiss chest x-ray shows cardiomegaly, may be minimal interstitial edema, no alveolar edema, so I think adding a diuretic to his regimen would probably be useful to encouraging the long-term to use nitroglycerin would be good as well that he is likely to have some spells of angina and we can get the long-term to follow a regimen where they try at least 3 doses of nitrogl ycerin before they transfer and it might be worthwhile. SHERWIN Voice ID: [id number] Report ID: [id number]
[2017-08-04] MEDS ORDERED: CARVEDILOL 6.25 MG TAB PO SCH (21:00)
[2017-08-04] MEDS ORDERED: DONEPEZIL HCL 5 MG TAB PO SCH (21:00)
[2017-08-04] MEDS ORDERED: ATORVASTATIN 80 MG TAB PO SCH (21:00)
--- NOTE | 2017-08-05 00:55 | DS ---
Date of Discharge: 08/04/2017 Quarry Plug And Feather Driller: Dr. Tyler with Cardiology. Admitting Diagnoses: 1.Acute congestive heart failure exacerbation and diastolic dysfunction. 2.Chronic kidney disease, stage 3. 3.Elevated troponin secondary to acute diastolic heart failure. 4.Hyperlipidemia. 5.History of myocardial infarction and coronary artery disease, [place] artery and [place] heart witho ut angina. 6.Diabetes mellitus type 2 with hyperglycemia without long-term use of insulin. 7.Normocytic normochromic anemia, stable. 8.Chronic obstructive pulmonary disease, not oxygen dependent. 9.History of cerebrovascular accident, left frontal lobe. 10.Essential hypertension. 11.Alzheimer dementia. Discharge Diagnoses: 1.Acute systolic heart failure, ejection fraction 40% to 44%, improved. 2.Chronic kidney disease, stage 3, stable. 3.Elevated troponin secondary to acute congestive heart failure exacerbation. 4.Hyperlipidemia. 5.Continue statin. 6.History of myocardial infarction and coronary artery disease, [place] artery and [place] heart witho ut angina. 7.Diabetes mellitus type 2 with hyperglycemia without long-term use of insulin. 8.Normocytic normochromic anemia. H and H stable. 9.Chronic obstructive pulmonary disease, not oxygen dependent. 10.History of cerebrovascular accident, left frontal lobe. 11.Essential hypertension, stable. 12.Alzheimer dementia, early onset without behavioral disturbance. Hospital Course: The patient is a 81-year-old male, who is a resident of long-term, admitted to [facility] for shortness of breath. The patient is known to have BNP over 2000. He was somewhat hy poxic with oxygen saturation 91% on room air. He was placed on supplemental oxygenation and he was d iuresed with Lasix. His chest x-ray did show pulmonary edema pattern. Head CT scan was done due to his mental status, which was negative for any acute changes. The patient does have history of stroke and dementia. The patient diuresed well. His fluid balance was negative. He no longer had any carroll rtness of breath. He was able to be placed back on room air and was doing well. The patient was see n by tailor garment fitter, Dr. Tyler. The patient was then cleared for discharge back to long-term. Med ications were adjusted. Condition stable. Return to ER for worsening condition. Follow up with [facility] physician in 2 to 3 days. Follow up with tailor garment fitter, Dr. Tyler, in 2 to 4 weeks. Diet: Low-sodium, fluid-restricted diet. Activity: Fall precautions. Medications: As per medication reconciliation list. Physical Examination: General: Awake, alert, oriented, no acute distress. CV: S1, S2. No murmurs. Respiratory: Moving air well bilaterally. No wheezing. Abdomen: Soft, nontender, nondistended. Positive bowel sounds. Extremities: No clubbing, cyanosis. Trace pedal edema. Neuro: Nonfocal. SA/MODL Voice ID: [id number] Report ID: [id number]
== END 2017-08-04 14:34 ==
LOC: ER 09:06 → ERHOLD 13:42 → 4TH 15:21
PROVIDERS: ADMIT Family Medicine; ATTEND Family Medicine
DX: I13.0 Hypertensive heart and chronic kidney disease with heart failure and stage 1 through stage 4 chronic kidney disease, or unspecified chronic kidney disease (principal); I50.23 Acute on chronic systolic (congestive) heart failure; I25.10 Atherosclerotic heart disease of native coronary artery without angina pectoris; J44.9 Chronic obstructive pulmonary disease, unspecified; D64.9 Anemia, unspecified; E78.5 Hyperlipidemia, unspecified; G30.9 Alzheimer's disease, unspecified; F02.80 Dementia in other diseases classified elsewhere, unspecified severity, without behavioral disturbance, psychotic disturbance, mood disturbance, and anxiety; K21.9 Gastro-esophageal reflux disease without esophagitis; E11.22 Type 2 diabetes mellitus with diabetic chronic kidney disease; N18.3 Chronic kidney disease, stage 3 (moderate); E11.65 Type 2 diabetes mellitus with hyperglycemia
CPT/HCPCS: 36415; 51702; 70450; 71045; 80048 ×2; 80076; 82550; 82553; 82962 ×5; 83036; 83605; 83735; 83880; 84145; 84484; 85025 ×2; 85610; 85730; 87040; 94640; 94760 ×2; 97163; 99285; G0378 ×2; J1650; 81003; 81015; 93005; J7512

== ENCOUNTER 2018-03-23 08:04 | Inpatient (IN) | payer OTHER ==
--- OUTSIDE RECORDS SUMMARY | 2018-03-23 08:06 | XMS REPORT | Clinical Summary ---
:1935 Author Organization [facility] Address [address] [place] [address] Care Team Providers Name Role Phone Asked, No Pcp Primary Care Provider Unavailable Allergies No Known Allergies Medications Not on file Active Problems Not on file Social History Tobacco Use Types Packs/Day Years Used Date Never Smoker Alcohol Use Drinks/Week oz/Week Comments No Sex Assigned at Date Recorded Not on file Job Start Date Occupation Industry Not on file Not on file Not on file Travel History Travel Start Travel End No recent travel history available. Last Filed Vital Signs Not on file Plan of Treatment Health Maintenance Due Date Last Done Comments SHINGRIX VACCINE (1 of 2) 12/19/1987 ZOSTER VACCINE 1997 PNEUMOCOCCAL POLYSACCHARIDE VACCINE AGE 65 AND OVER 2002 PNEUMOCOCCAL-13 2002 INFLUENZA VACCINE 11/29/2017 Results Not on fileafter 03/22/2017 Insurance Payer Benefit Plan / Group Subscriber ID Type Phone Address MEDICARE MEDICARE PART A AND B xxxxxxxxxxx Medicare [place], [place] MEDICAID MEDICAID xxxxxxxxx Medicaid [id number] [facility] [id number] (Home) [place] [address] [facility] Outside Other [phone] [place] [address] 8 (Home) Kim Barclay Attn: [place] [address] Advance Directives Patient has advance care planning documents on file. For more information, please contact:[facility] [place] [address]
--- OUTSIDE RECORDS SUMMARY | 2018-03-23 08:07 | XMS REPORT ---
:1935 Author Organization [facility] Address [address] [place]az [address] [place] [id number] Care Team Providers Name Role Phone DR NOELLE GOLD Unavailable Unavailable Problems This patient has no known problems. Allergies, Adverse Reactions, Alerts This patient has no known allergies or adverse reactions. Medications This patient has no known medications. Encounters Start End Encounter Admission Attending Care Care Encounter Date/Time Date/Time Type Type Clinicians Facility Department ID 2017-05-20 2017-05-31 Inpatient E AMPARO GOLDYahaira DCU [id number] 16:47:00 12:30:00 NOELLE Results Test Description Test [...] UR (test code=USPERM) /HPF NONE COMPREHENSIVE METABOLIC [id number] 19:16:00 Test Item Value Reference Range Comments [...] purposes ALCOHOL (test code=56A) <10 mg/dL <=10 [id number] 19:16:00 Test Item Value Reference Range Comments ACETAMINPH (test code=94M) <2.0 ug/mL 10.0-30.0 DRUGS OF [id number] 19:12:00 Test Item Value Reference Range Comments [...] Barbiturates 200 ng/mL Opiates 2000 ng/mL AMMONIA [id number] 19:01:00 Test Item Value Reference Range Comments AMMONIA (test code=54A) 20 umol/L 11-32 XR CHEST 1 VIEW [id number] 17:10:18Exam: Chest portable erectLocation: D4.History: medical clearanceComparison: NoneFindings:The lungs are clear. No infiltrate or effusion is seen. The pulmonaryvasculature is normal. The heart size is mildly enlarged. 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 Atherosclerosis involves the aorta. The mediastinalsilhouette is unremarkable. The bony thorax is intact with degenerative changesnoted.Impression:No acute disease.
[2018-03-23] MEDS ORDERED: D50W 25 GM/50 ML SYRINGE IV ONE (08:27)
[2018-03-23 09:24] LABS: Protime INR 1.14
[2018-03-23 09:27] LABS: Absolute Lymphocytes (CBC) 1.9 K/uL (0.7-4.9); Absolute Monocytes 0.5 K/uL (0.1-1.3); Absolute Neutrophil 7.1 K/uL (1.8-8.0); Basophils % 0.7 % (0-1.3); Eosinophils % 0.5 % (0-4.4); Hematocrit 43.8 % (39.6-49.0); Lymphocytes % 19.4 % (15.3-44.8); MCH 28.2 pg (27.0-35.0); MCV 87.9 fL (80-100); MPV 10.5 fL (7.6-11.3); Monocytes % 5.2 % (3.3-12.3); RBC Red Blood Cell Count 4.99 M/uL (4.33-5.43)
[2018-03-23 09:36] LABS: Urine Blood NEGATIVE (NEG); Urine Glucose NEGATIVE (NEG); Urine Protein NEGATIVE (NEG); Urine Specific Gravity 1.025 (1.005-1.030)
[2018-03-23] MEDS ORDERED: NA CHLORIDE 0.9% 2,000 ML ONE (09:44)
[2018-03-23] MEDS ORDERED: CEFAZOLIN/SWI 1gm 1 GM/10 ML SYR ONE (09:45)
[2018-03-23 09:50] LABS: Urine Bacteria NONE SEEN /HPF (NONE SEEN); Urine Culture Reflex Order NOT NEEDED; Urine RBC NONE SEEN /HPF (NONE SEEN)
[2018-03-23 09:51] LABS: Urine Amorphous Sediment TRACE /HPF (NONE SEEN)
[2018-03-23 09:53] LABS: Albumin 3.2 g/dL (3.4-5.0); Bilirubin Direct 0.2 mg/dL (0-0.2); Bilirubin Total 0.4 mg/dL (0.2-1.0); CKMB Creatine Kinase MB 4.5 ng/mL (0.3-3.6); Potassium 5.1 mmol/L (3.5-5.1); Protein, Total 8.9 g/dL (6.4-8.2); Troponin (Emerg Dept Use Only) 0.08 ng/mL (0.0-0.045)
[2018-03-23 09:59] LABS: Blood Morphology Comment NOTED (NOT SEEN); Platelet Estimate ADEQ; Urine White Blood Cell Casts OK
--- NOTE | 2018-03-23 09:59 | RAD REPORT ---
EXAM DESCRIPTION: CT - Head Brain Wo Cont - 03/23/2018 9:34 am CLINICAL HISTORY: DECLINING STATE Drowsiness COMPARISON: Head Brain Wo Cont dated 08/03/2017; Head Brain Wo Cont dated 04/26/2017 TECHNIQUE: All CT scans are performed using dose optimization technique as appropriate and may inclu de automated exposure control or mA/KV adjustment according to patient size. FINDINGS: No intracranial hemorrhage, hydrocephalus or extra-axial fluid collection.Advanced general ized brain atrophy is present with advanced periventricular and deep white matter chronic microvascul ar ischemic changes.No areas of brain edema or evidence of midline shift. The paranasal sinuses and mastoids are clear. The calvarium is intact. IMPRESSION: No acute intracranial abnormality.
[2018-03-23 10:00] LABS: Anisocytosis 1+; Macrocytosis SLIGHT
--- NOTE | 2018-03-23 10:16 | EKG ---
Test Date: 2018-03-23 Test Time: 08:10:28 [place]: SHUKRI MEASUREMENT RESULTS: Intervals: Rate: 80 TX: 148 QRSD: 90 QT: 396 QTc: 456 [place]: P: 85 TX: 148 QRS: -42 T: 90 INTERPRETIVE STATEMENTS: Normal sinus rhythm Right atrial enlargement Left axis deviation Pulmonary disease pattern Left ventricular hypertrophy with repolarization abnormality Abnormal ECG Compared to ECG 04/26/2017 09:31:44 Left-axis deviation now present Left ventricular hypertrophy now present Electronically Signed On 03-23-18 10:15:39 FIELD INSPECTOR by Tayo Tyler
--- NOTE | 2018-03-23 10:30 | ER ---
Nurse's Notes [facility] Name: Ace Zuniga Age: 82 yrs Sex: Male : 1935 Arrival Date: 03/23/2018 Time: 08:11 Bed 3 Private MD: Diagnosis: Dehydration;Altered mental status, unspecified;Hyperosmolality and hypernatremia;Extended spectrum beta lactamase (ESBL) resistance;Acute kidney failure Presentation: 03/23 08:11 Presenting complaint: EMS states: alf staff reported to EMS that when rounding ss on patient in the morning it was observed that he was less responsive than usual. Baseline is nonambulatory, A\T\O x1. Unable to obtain accurate O2 saturation on arrival to [facility] so patient was placed on NRB \T\ 15 L NC. Unknown onset of symptoms. Pt is currently receiving IM antibiotic therapy for treatment of ESBL in urine. Transition of care: patient was not received from another setting of care. Onset of symptoms is unknown. Risk Assessment: Do you want to hurt yourself or someone else? Patient reports no desire to harm self or others. Initial Sepsis Screen: Does the patient meet any 2 criteria? No. Patient's initial sepsis screen is negative. Does the patient have a suspected source of infection? Yes: Dysuria/Frequency/Urgency/UTI. Care prior to arrival: Glucose check: 68. 08:11 Method Of Arrival: EMS: [facility] 08:11 Acuity: SYLVAIN 2 ss Triage Assessment: 08:28 General: Appears in no apparent distress. comfortable, slender, unkempt, Behavior is bp ALTERED AND MINIMALLY INTERACTIVE. Pain: Unable to use pain scale. Patient is disoriented. Does not appear to understand pain scale. EENT: No deficits noted. Neuro: Level of Consciousness is confused, lethargic, Oriented to person. Cardiovascular: Rhythm is sinus rhythm. Respiratory: Airway is patent Respiratory effort is even, unlabored, Respiratory pattern is regular, symmetrical. GI: No signs and/or symptoms were reported involving the gastrointestinal system. : No signs and/or symptoms were reported regarding the genitourinary system. Derm: No deficits noted. Musculoskeletal: Circulation, motion, and sensation intact. Range of motion: limited in all extremities. Historical: - Allergies: 08:18 No Known Allergies; ss - Home Meds: 16:05 Aldactone 25 mg Oral tab 1 tab once daily [Active]; aspirin 325 mg Oral tab 1 tab once bp daily [Active]; atorvastatin 80 mg Oral tab 1 tab once daily [Active]; carvedilol 12.5 mg Oral tab 1 tab 2 times per day [Active]; donepezil 10 mg Oral tab 1 tab once daily [Active]; duloxetine 30 mg Oral cpDR 1 cap 2 times per day [Active]; isosorbide dinitrate 10 mg Oral tab 1 tab 3 times per day [Active]; lisinopril 20 mg Oral tab 1 tab once daily [Active]; Namenda 10 mg Oral tab 1 tab 2 times per day [Active]; nitroglycerin 0.4 mg SL subl 1 tab as needed [Active]; Pepcid 20 mg Oral tab 1 tab every 6 hours [Active]; Plavix 75 mg Oral tab 1 tab once daily [Active]; - PMHx: 08:18 Alzheimers; Diabetes - NIDDM; GERD; Hyperlipidemia; Hypertension; Myocardial ss infarction; weakness,generalized; non ambulatory; COPD; chronid kidney disease, stage III; dysphagia; Anxiety; cerebrovascular insufficiency; Depression; UTI; - PSHx: 08:18 Unable to obtain; ss - Immunization history:: Adult Immunizations unknown. - Social history:: Smoking status: unknown. - Ebola Screening: : Patient denies exposure to infectious person Patient denies travel to an Ebola-affected area in the 21 days before illness onset. Screenin:34 Abuse screen: Denies threats or abuse. Denies injuries from another. Nutritional bp screening: No deficits noted. Tuberculosis screening: No symptoms or risk factors identified. Fall Risk None identified. Assessment: 08:15 General: SEE TRIAGE NOTE. bp 09:00 Reassessment: AFTER MX PIV ATTEMPTS, CVC OBTAINED AND STERLING PLACED. NO CHANGE IN PT bp MENTAL STATUS. 09:55 Reassessment: CONSTANTIN Jimenez notified of critical lab value Chloride 127. ss 11:45 Reassessment: ADMIT IN PROCESS, NO CHANGE IN PT MENTAL STATUS. bp 14:00 Reassessment: ADMIT IN PROCESS, NO ROOMS AVAILABLE AT THIS TIME. bp 16:00 Reassessment: VS STABLE ON MONITOR, NO CHANGE IN MENTAL CONDITION. bp Vital Signs: 08:11 BP 152 / 77; Pulse 84; Resp 17; Pulse Ox 100% on R/A; Weight 49.9 kg; bp 09:00 BP 136 / 95; Pulse 72; Resp 17; Pulse Ox 100% ; bp 10:00 BP 148 / 96; Pulse 69; Resp 16; Pulse Ox 100% ; bp 11:00 BP 145 / 98; Pulse 78; Resp 19; Pulse Ox 100% ; bp 12:00 BP 149 / 112; Pulse 81; Resp 15; Pulse Ox 98% ; bp 13:00 BP 167 / 114; Pulse 86; Resp 15; Pulse Ox 99% ; bp 14:00 BP 165 / 107; Pulse 86; Resp 15; Pulse Ox 100% ; bp 15:00 BP 150 / 97; Pulse 86; Resp 17; Pulse Ox 100% ; bp 16:00 BP 126 / 110; Pulse 87; Resp 18; Pulse Ox 100% ; bp ED Course: 08:11 Patient arrived in ED. ss 08:14 Triage completed. ss 08:18 Arm band placed on left wrist. ss 08:22 Roshan Ghotra PA is PHCP. jr8 08:22 Ralph Roque MD is Attending Physician. jr8 08:26 Jose Maria Felder, RENETTA is Primary Nurse. bp 08:34 Patient has correct armband on for positive identification. Bed in low position. Call bp light in reach. Side rails up X2. 09:07 Assisted provider with central line placement. Set up central line tray. Triple lumen bp line placed in left femoral. Line placed by Roshan KILLIAN Dressed with Tegaderm, Blood was collected. Patient tolerated well. Before procedure, did Practitioner(s) obtain informed consent? No. Time-out/Briefing performed prior to start of procedure? Yes. Was handwashing/sanitizing done immediately prior to procedure? Yes. Was patient positioned to in a way to prevent air embolism? Yes. Was procedure site sterilized? Yes, with chlorhexidine. Was the site allowed to dry? Yes. Was local anesthetic and/or sedation utilized? No. During the procedure, did the Practitioner(s) maintain a sterile field? Yes. Were unused ports clamped during insertion? Yes. Was a 2nd qualified MD obtained after 3 unsuccessful insertion attempts? No. Was blood aspirated from each lumen? Yes. After the procedure, did the Practitioner(s) clean the site and apply a sterile dressing? Yes. Inserted R FEM CVC. 09:28 Radiology exam delayed due to CATHATER. ag1 09:32 CT completed. Patient tolerated procedure well. Patient moved to CT via stretcher. jg6 Patient moved back from CT. 09:32 Sterling cath inserted, using sterile technique, 18 Fr., by al, balloon inflated, to jb1 gravity drainage, urine specimen collected. 09:33 CT Head Brain wo Cont In Process Unspecified. EDMS 09:33 Urine collected: Sterling catheter specimen, cloudy, honey colored. jb1 09:47 Chest Single View XRAY In Process Unspecified. EDMS 09:48 X-ray completed. Patient tolerated procedure well. Patient moved back from radiology. ls3 10:29 Jordi Katz MD is Hospitalizing Provider. jr8 16:05 Patient admitted, IV remains in place. bp Administered Medications: 09:07 Drug: D50W 50 ml Route: IVP; Site: left femoral; bp 09:41 Follow up: Response: No adverse reaction; No change in condition bp 09:51 Drug: NS 0.9% (30 ml/kg) 30 ml/kg Route: IV; Rate: bolus; Site: left femoral; bp 09:51 Drug: Ancef 1 grams Route: IVPB; Site: left femoral; bp Point of Care Testing: Blood Glucose: 08:11 Blood Glucose: 68 mg/dL; ss Ranges: Outcome: 10:30 Decision to Hospitalize by Provider. jr8 16:57 Admitted to Med/surg accompanied by [facility], via stretcher, room 402, with chart, Report bp called to FORREST RN 16:57 Condition: stable 16:57 Instructed on the need for admit. 17:17 Patient left the ED. jb1 Signatures: Dispatcher [employer] EDMS Praneeth Uribe jb1 Yesy Reyez, RN RN ss Roshan Ghotra PA PA jr8 Tamar Singh ag1 Jose Maria Felder, RENETTA RN bp Ibeth Sheikh jg6 Holley Sánchez ls3 Corrections: (The following items were deleted from the chart) 08:28 08:11 Initial Sepsis Screen: Does the patient meet any 2 criteria? No. Patient's bp initial sepsis screen is negative. Does the patient have a suspected source of infection? Yes: Dysuria/Frequency/Urgency/UTI ss 09:05 08:11 BP 152 / 77; Pulse 84bpm; Resp 17bpm; Pulse Ox 100% RA; ss bp 09:56 09:55 Reassessment: CONSTANTIN Jimenez notified of critical lab value Cl 127 ss ss
--- NOTE | 2018-03-23 10:31 | EDPHYS ---
Physician Documentation [facility] Name: Ace Zuniga Age: 82 yrs Sex: Male : 1935 Arrival Date: 03/23/2018 Time: 08:11 Bed 3 Private MD: ED Physician Ralph Roque HPI: 03/23 09:40 This 82 yrs old Black Male presents to ER via EMS with complaints of Altered Mental jr8 Status. 09:40 The patient presents with decreased mental status, decreased responsiveness. Onset: The jr8 symptoms/episode began/occurred acutely, today. Possible causes: unknown. Associated signs and symptoms: The patient has no apparent associated signs or symptoms. Current symptoms: In the emergency department the patient's symptoms are unchanged from the initial presentation. Patient's baseline: Neuro: orientated to person, Motor: contracted, diffusely, Ambulation: unable to walk, Speech: slow. It is unknown whether or not the patient has had similar symptoms in the past. It is unknown whether or not the patient has recently seen a physician. Sent by [facility] for decreased responsiveness and hypoxia. Stated that his saturation was in the 80s when they were rounding. Normally can talk but is only alert to person and is demented . Historical: - Allergies: 08:18 No Known Allergies; ss - Home Meds: 16:05 Aldactone 25 mg Oral tab 1 tab once daily [Active]; aspirin 325 mg Oral tab 1 tab once bp daily [Active]; atorvastatin 80 mg Oral tab 1 tab once daily [Active]; carvedilol 12.5 mg Oral tab 1 tab 2 times per day [Active]; donepezil 10 mg Oral tab 1 tab once daily [Active]; duloxetine 30 mg Oral cpDR 1 cap 2 times per day [Active]; isosorbide dinitrate 10 mg Oral tab 1 tab 3 times per day [Active]; lisinopril 20 mg Oral tab 1 tab once daily [Active]; Namenda 10 mg Oral tab 1 tab 2 times per day [Active]; nitroglycerin 0.4 mg SL subl 1 tab as needed [Active]; Pepcid 20 mg Oral tab 1 tab every 6 hours [Active]; Plavix 75 mg Oral tab 1 tab once daily [Active]; - PMHx: 08:18 Alzheimers; Diabetes - NIDDM; GERD; Hyperlipidemia; Hypertension; Myocardial ss infarction; weakness,generalized; non ambulatory; COPD; chronid kidney disease, stage III; dysphagia; Anxiety; cerebrovascular insufficiency; Depression; UTI; - PSHx: 08:18 Unable to obtain; ss - Immunization history:: Adult Immunizations unknown. - Social history:: Smoking status: unknown. - Ebola Screening: : Patient denies exposure to infectious person Patient denies travel to an Ebola-affected area in the 21 days before illness onset. ROS: 09:40 Unable to obtain ROS due to altered mental status. jr8 Exam: 09:40 Eyes: Pupils equal round and reactive to light, extra-ocular motions intact. Lids and jr8 lashes normal. Conjunctiva and sclera are non-icteric and not injected. Cornea within normal limits. Periorbital areas with no swelling, redness, or edema. ENT: Nares patent. No nasal discharge, no septal abnormalities noted. Tympanic membranes are normal and external auditory canals are clear. Oropharynx with no redness, swelling, or masses, exudates, or evidence of obstruction, uvula midline. Mucous membranes dry Neck: Trachea midline, no thyromegaly or masses palpated, and no cervical lymphadenopathy. Supple, full range of motion without nuchal rigidity Cardiovascular: Regular rate and rhythm with a normal S1 and S2. No gallops, murmurs, or rubs. Normal PMI, no JVD. No pulse deficits. Respiratory: Lungs have equal breath sounds bilaterally, clear to auscultation and percussion. No rales, rhonchi or wheezes noted. No increased work of breathing, no retractions or nasal flaring. Abdomen/GI: Soft, with normal bowel sounds. No distension or tympany. No guarding or rebound. Back: No grimacing with range of motion. Full range of motion. Skin: Warm, dry with normal turgor. Normal color with no rashes, no lesions, and no evidence of cellulitis. MS/ Extremity: Pulses equal, no cyanosis. Neurovascular intact. Decreased ROM due to being chronically contracted 09:40 Neuro: Orientation: Not oriented to person, place, time, situation, Mentation: unable to follow commands, sleepy, responsive to pain, Memory: unable to test, Cranial nerves: extraocular movements are intact, Cerebellar function: unable to test, Motor: moves all fours, Sensation: no obvious gross deficits, seizure activity, is not displayed by the patient, Abnormal movements: there are no abnormal movements. Vital Signs: 08:11 BP 152 / 77; Pulse 84; Resp 17; Pulse Ox 100% on R/A; Weight 49.9 kg; bp 09:00 BP 136 / 95; Pulse 72; Resp 17; Pulse Ox 100% ; bp 10:00 BP 148 / 96; Pulse 69; Resp 16; Pulse Ox 100% ; bp 11:00 BP 145 / 98; Pulse 78; Resp 19; Pulse Ox 100% ; bp 12:00 BP 149 / 112; Pulse 81; Resp 15; Pulse Ox 98% ; bp 13:00 BP 167 / 114; Pulse 86; Resp 15; Pulse Ox 99% ; bp 14:00 BP 165 / 107; Pulse 86; Resp 15; Pulse Ox 100% ; bp 15:00 BP 150 / 97; Pulse 86; Resp 17; Pulse Ox 100% ; bp 16:00 BP 126 / 110; Pulse 87; Resp 18; Pulse Ox 100% ; bp Procedures: 10:27 Central Line: the site was prepped with Betadine, in sterile fashion, a triple lumen jr8 catheter was inserted, in the right femoral vein, in 1 attempts. placement was verified, by blood return, the patient tolerated the procedure, well, After drawing back. Line would no longer work and could not thread completely through. D/C'd that line at that time. Central Line: the site was prepped with Betadine, in sterile fashion, a triple lumen catheter was inserted, in the left femoral vein, in 1 attempts. placement was verified, by blood return, the site was dressed with 4X4s, Tegaderm, using sterile technique, the patient tolerated the procedure, well. MDM: 08:26 Patient medically screened. hood 10:24 Data reviewed: vital signs, nurses notes, lab test result(s), EKG, radiologic studies, jr8 CT scan, plain films. Data interpreted: Pulse oximetry: on room air is 100 %. Interpretation: normal. Counseling: I had a detailed discussion with the patient and/or guardian regarding: the historical points, exam findings, and any diagnostic results supporting the discharge/admit diagnosis, lab results, radiology results, the need for further work-up and treatment in the hospital. 10:27 Physician consultation: Jordi Katz MD was called at 10:27, was contacted at 10:27, jr8 regarding admission, to the telemetry unit. consult, patient's condition, and will see patient. 03/23 08:18 Order name: glucometer results - FOR PT WITH NO ID; Complete Time: 15:54 ss 03/23 08:59 Order name: Basic Metabolic Panel ss 03/23 08:59 Order name: Blood Culture Adult (2) 03/23 08:59 Order name: CBC with Diff; Complete Time: 10:06 ss 03/23 08:59 Order name: Ckmb; Complete Time: 09:57 ss 03/23 08:59 Order name: CPK; Complete Time: 09:57 03/23 08:59 Order name: Lactate; Complete Time: 10:32 03/23 08:59 Order name: LFT's; Complete Time: 09:57 ss 03/23 08:59 Order name: Lipase; Complete Time: 09:57 03/23 08:59 Order name: Procalcitonin; Complete Time: 10:06 03/23 08:59 Order name: Protime (+inr); Complete Time: 09:40 03/23 08:59 Order name: Ptt, Activated; Complete Time: 09:40 03/23 08:59 Order name: Troponin (emerg Dept Use Only); Complete Time: 09:57 03/23 08:59 Order name: Urine Microscopic Only; Complete Time: 09:52 ss 03/23 08:35 Order name: EKG Electrocardiogram; Complete Time: 09:10 EDMS 03/23 08:59 Order name: Chest Single View XRAY; Complete Time: 10:37 03/23 08:59 Order name: Accucheck; Complete Time: 09:10 03/23 08:59 Order name: Cardiac monitoring; Complete Time: 09:09 03/23 08:59 Order name: EKG - Nurse/Tech; Complete Time: 09:09 03/23 08:59 Order name: IV Saline Lock - Large Bore; Complete Time: 09:09 03/23 08:59 Order name: Labs collected and sent; Complete Time: 09:09 03/23 08:59 Order name: O2 Per Protocol; Complete Time: 09:10 03/23 08:59 Order name: O2 Sat Monitoring; Complete Time: 09:10 03/23 08:59 Order name: Basic Metabolic Panel; Complete Time: 09:57 EDMS 03/23 09:03 Order name: CT Head Brain wo Cont; Complete Time: 10:06 jr8 03/23 09:33 Order name: Urine Dipstick--Ancillary (enter results); Complete Time: 09:40 eb 03/23 10:00 Order name: CBC Smear Scan; Complete Time: 10:06 EDMS 03/23 08:59 Order name: Urine Dipstick-Ancillary (obtain specimen); Complete Time: 09:41 ss Administered Medications: 09:07 Drug: D50W 50 ml Route: IVP; Site: left femoral; bp 09:41 Follow up: Response: No adverse reaction; No change in condition bp 09:51 Drug: NS 0.9% (30 ml/kg) 30 ml/kg Route: IV; Rate: bolus; Site: left femoral; bp 09:51 Drug: Ancef 1 grams Route: IVPB; Site: left femoral; bp Point of Care Testing: Blood Glucose: 08:11 Blood Glucose: 68 mg/dL; ss Ranges: Critical Glucose Levels:Adult <50 mg/dl or >400 mg/dl <40 mg/dl or >180 mg/dl Disposition: 03/23/18 10:30 Hospitalization ordered by Jordi Katz for Inpatient Admission. Preliminary diagnosis are Dehydration, Altered mental status, unspecified, Hyperosmolality and hypernatremia, Extended spectrum beta lactamase (ESBL) resistance, Acute kidney failure. - Bed requested for Telemetry/MedSurg (Inpatient). - Status is Inpatient Admission. jb1 - Condition is Stable. - Problem is new. - Symptoms are unchanged. UTI on Admission? Yes Addendum: 03/26/2018 08:11 Co-signature as Attending Physician, Ralph Roque MD I agree with the assessment and c hardin plan of care. Signatures: Dispatcher [employer] [facility] Praneeth Uribe jb1 Katie Gonzalez, Ralph Duhnam RN, MD MD cha Smirch, Shelby, RN RN Roshan Castelan PA PA jr8 Jose Maria Felder, RENETTA RN bp Corrections: (The following items were deleted from the chart) 03/23 10:30 10:30 Hospitalization Ordered by Jordi Katz MD for Inpatient Admission. Preliminary jr8 diagnosis is Dehydration; Altered mental status, unspecified; Hyperosmolality and hypernatremia; Extended spectrum beta lactamase (ESBL) resistance. Bed requested for Telemetry/MedSurg (Inpatient). Status is Inpatient Admission. Condition is Stable. Problem is new. Symptoms are unchanged. UTI on Admission? Yes. jr8 15:59 10:30 03/23/2018 10:30 Hospitalization Ordered by Jordi Katz MD for Inpatient dw Admission. Preliminary diagnosis is Dehydration; Altered mental status, unspecified; Hyperosmolality and hypernatremia; Extended spectrum beta lactamase (ESBL) resistance; Acute kidney failure. Bed requested for Telemetry/MedSurg (Inpatient). Status is Inpatient Admission. Condition is Stable. Problem is new. Symptoms are unchanged. UTI on Admission? Yes. jr8 17:17 15:59 03/23/2018 10:30 Hospitalization Ordered by Jordi Katz MD for Inpatient jb1 Admission. Preliminary diagnosis is Dehydration; Altered mental status, unspecified; Hyperosmolality and hypernatremia; Extended spectrum beta lactamase (ESBL) resistance; Acute kidney failure. Bed requested for Telemetry/MedSurg (Inpatient). Status is Inpatient Admission. Condition is Stable. Problem is new. Symptoms are unchanged. UTI on Admission? Yes. dw
--- NOTE | 2018-03-23 10:36 | RAD REPORT ---
EXAM DESCRIPTION: RAD - Chest Single View - 03/23/2018 9:46 am CLINICAL HISTORY: poss sepsis Chest pain. COMPARISON: Chest Single View dated 08/03/2017; Chest Single View dated 04/26/2017 FINDINGS: Portable technique limits examination quality. Minimal linear subsegmental atelectasis suspected left base. The lungs are otherwise clear. The heart is normal in size. No displaced fractures.Sternotomy wires present. IMPRESSION: No acute intrathoracic process suspected.
[2018-03-23] MEDS ORDERED: ACETAMINOPHEN 500 MG TAB PO PRN (17:16)
[2018-03-23] MEDS ORDERED: ONDANSETRON 4 MG/2 ML VIAL IV PRN (17:16)
[2018-03-23 17:43] VITALS: BMI 18.3
[2018-03-23] MEDS: ENOXAPARIN 30 MG/0.3 ML SQ SCH (20:06)
--- NOTE | 2018-03-23 21:43 | P.PN ---
Subjective Date of Service: 03/23/18 Chief Complaint: AMS Patient is a 82 yr old male from [facility], sent for decreased responsiveness and hypoxia. Unsure of history as patient not able to provide any history. From chart review: Baseline is orientated to person. Motor: Contracted, diffusely. Unable to walk Unable to obtain any further history at this time. Review of Systems is unable to be obtained Physical Examination - Vital Signs Temperature: 97.2 F Blood Pressure: 140/72 Pulse: 76 Respirations: 16 Pulse Ox (%): 100 - Physical Exam General: Other (Not oriented to self, unable to talk though wakes up to sound and attempts to respond. ) Neck: Supple Respiratory: Clear to auscultation bilaterally Cardiovascular: No edema, Regular rate/rhythm, Normal S1 S2 Gastrointestinal: Normal bowel sounds Musculoskeletal: Contractures - Studies Laboratory Data (last 24 hrs) 03/23/18 09:00: PT 13.5 H, INR 1.14, APTT 28.5 03/23/18 09:00: WBC 9.6, Hgb 14.1, Hct 43.8, Plt Count 271 03/23/18 09:00: Sodium 158 H, Potassium 5.1, BUN 62 H, Creatinine 2.40 H, Glucose 108 H, Total Bilirubin 0.4, AST 51 H, ALT 40, Alkaline Phosphatase 67, Lipase 237 Assessment And Plan - Plan This is a 82 y M with: Altered mental status Acute respiratory distress Hypernatremia IVF Blood cultures pending Imaging with no acute abnormalities Respiratory distress resolved Continue oxygen prn Pending symptomatic improvement.
[2018-03-23] MEDS: NA CHLORIDE 0.9% 1,000 ML IV SCH (22:53)
[2018-03-24 08:30] LABS: Absolute Lymphocytes (CBC) 1.4 K/uL (0.7-4.9); Absolute Monocytes 0.5 K/uL (0.1-1.3); Absolute Neutrophil 5.3 K/uL (1.8-8.0); Basophils % 0.4 % (0-1.3); Eosinophils % 0.6 % (0-4.4); Lymphocytes % 19.5 % (15.3-44.8); MCH 28.4 pg (27.0-35.0); MCV 88.3 fL (80-100); MPV 10.1 fL (7.6-11.3); RBC Red Blood Cell Count 4.42 M/uL (4.33-5.43)
[2018-03-24 08:50] LABS: Albumin 2.9 g/dL (3.4-5.0); Bilirubin Total 0.4 mg/dL (0.2-1.0); Potassium 4.6 mmol/L (3.5-5.1); Protein, Total 7.7 g/dL (6.4-8.2)
[2018-03-24] MEDS ORDERED: ENOXAPARIN 40 MG/0.4 ML SQ SCH (09:00)
[2018-03-24] MEDS: NA CHLORIDE 0.9% 1,000 ML IV SCH (12:24)
[2018-03-24] MEDS ORDERED: D50W 25 GM/50 ML SYRINGE IV ONE (12:40)
[2018-03-24] MEDS: D5 0.2 NS 1,000 ML IV SCH ×2 (14:07→20:28)
[2018-03-24] MEDS ORDERED: VANCOMYCIN 1.25 GM in NA CHLORIDE 0.9% 250 ML IVPB SCH (15:00)
--- NOTE | 2018-03-24 16:00 | RAD REPORT ---
EXAM DESCRIPTION: RAD - Barium Swallow Modified - 03/24/2018 2:10 pm CLINICAL HISTORY: Difficulty swallowing, failed bedside study COMPARISON: None. TECHNIQUE: The patient was given liquid, semi-solid and solid forms of barium. Lateral view fluorosc opic imaging was performed in conjunction with speech pathology service. FINDINGS: Fluoro time was 6 minutes 25 seconds. There were 46 separate cine loop acquisitions acquir ed. Laryngeal penetration was observed with thin barium. Patient able to clear this contrast. The was ruby leculae and piriform sinus retention. Patient had increased oral transit time. No aspiration observed . IMPRESSION: Modified barium swallow study is detailed above and on speech pathology report.
[2018-03-24] MEDS: VANCOMYCIN 1 GM/250 ML BAG IV SCH (16:24)
[2018-03-24] MEDS: PIPER/TAZO/NS 3.375gm 3.375 GM/100 ML BAG IVPB SCH (17:14)
[2018-03-24] MEDS: ENOXAPARIN 30 MG/0.3 ML SQ SCH (17:14)
--- NOTE | 2018-03-24 22:17 | P.PN ---
Subjective Date of Service: 03/25/18 Chief Complaint: AMS Patient seen and examined at bedside. No family at bedside. Review of Systems As noted Physical Examination - Vital Signs Temperature: 97 F Blood Pressure: 145/81 Pulse: 83 Respirations: 18 Pulse Ox (%): 100 - Physical Exam General: Alert, In no apparent distress, Oriented x3, Other (Unable to talk much ) HEENT: Atraumatic, PERRLA, EOMI Neck: Supple, JVD not distended Respiratory: Clear to auscultation bilaterally, Normal air movement Cardiovascular: Regular rate/rhythm, Normal S1 S2 Gastrointestinal: Normal bowel sounds, No tenderness Musculoskeletal: No tenderness Integumentary: No rashes Neurological: Normal speech, Normal tone, Normal affect Lymphatics: No axilla or inguinal lymphadenopathy Assessment And Plan - Plan This is a 82 y M with: Altered mental status Acute respiratory distress Hypernatremia Bacteremia Hypoglycemia IVF Continue IV antibiotics Blood cultures positive, sensitivities pending. Imaging with no acute abnormalities Switch NS to D5 Respiratory distress resolved Continue oxygen prn Pending symptomatic improvement.
[2018-03-25] MEDS: PIPER/TAZO/NS 3.375gm 3.375 GM/100 ML BAG IVPB SCH ×3 (00:07→16:17)
[2018-03-25] MEDS: D5 0.2 NS 1,000 ML IV SCH ×2 (03:55→18:07)
[2018-03-25 06:14] LABS: Absolute Lymphocytes (CBC) 1.3 K/uL (0.7-4.9); Absolute Monocytes 0.5 K/uL (0.1-1.3); Absolute Neutrophil 4.5 K/uL (1.8-8.0); Basophils % 0.6 % (0-1.3); Eosinophils % 2.3 % (0-4.4); Lymphocytes % 20.1 % (15.3-44.8); MCV 87.9 fL (80-100); Monocytes % 7.4 % (3.3-12.3); RBC Red Blood Cell Count 4.09 M/uL (4.33-5.43)
[2018-03-25 06:34] LABS: Albumin 2.7 g/dL (3.4-5.0); Bilirubin Total 0.4 mg/dL (0.2-1.0); Protein, Total 7.3 g/dL (6.4-8.2)
--- NOTE | 2018-03-25 09:45 | EKG ---
Test Date: 2018-03-24 Test Time: 13:10:00 Director Erp: WILLIAM MEASUREMENT RESULTS: Intervals: Rate: 75 MA: 140 QRSD: 102 QT: 424 QTc: 473 [place]: P: 66 MA: 140 QRS: -1 T: 25 INTERPRETIVE STATEMENTS: Sinus rhythm with occasional premature ventricular complexes Nonspecific ST and T wave abnormality Prolonged QT Abnormal ECG Compared to ECG 03/23/2018 08:10:28 Ventricular premature complex(es) now present Atrial abnormality no longer present Left-axis deviation no longer present Electronically Signed On 03-25-18 09:45:24 PRICER BAGGER by Tayo Tyler
[2018-03-25 13:52] LABS: Urine Appearance CLEAR; Urine Bilirubin NEGATIVE (NEG); Urine Blood NEGATIVE (NEG); Urine Color YELLOW; Urine Glucose NEGATIVE (NEG); Urine Protein TRACE (NEG); Urine Specific Gravity 1.025 (1.005-1.030)
[2018-03-25 13:53] LABS: Urine Microscopic Reflex ORDER UMIC
[2018-03-25 13:59] LABS: Calcium Oxalate Crystals- Ur MODERATE (NONE SEEN); Urine Bacteria <20 /HPF (NONE SEEN); Urine Culture Reflex Order REFLEXED; Urine RBC <5 /HPF (NONE SEEN)
--- NOTE | 2018-03-25 17:23 | P.PN ---
Subjective Date of Service: 03/25/18 Chief Complaint: AMS Subjective: Improving Patient seen and examined at bedside. No family at bedside. He sounds much better today, more awake and talking more. Review of Systems As noted Physical Examination - Vital Signs Temperature: 97 F Blood Pressure: 145/81 Pulse: 83 Respirations: 18 Pulse Ox (%): 100 - Physical Exam General: Alert, In no apparent distress, Oriented x3 HEENT: Atraumatic, PERRLA, EOMI Neck: Supple, JVD not distended Respiratory: Clear to auscultation bilaterally, Normal air movement Cardiovascular: Regular rate/rhythm, Normal S1 S2 Gastrointestinal: Normal bowel sounds, No tenderness Musculoskeletal: No tenderness Integumentary: No rashes Neurological: Normal speech, Normal tone, Normal affect Lymphatics: No axilla or inguinal lymphadenopathy Assessment And Plan - Plan This is a 82 y M with: Altered mental status Acute respiratory distress Hypernatremia Bacteremia Hypoglycemia Discontinue IVF as patient tolerating diet and due to hypernatremia. Continue IV antibiotics Blood cultures positive, though likely a contaminant. Will discontinue antibiotics tomorrow.. Imaging with no acute abnormalities Respiratory distress resolved Continue oxygen prn Pending symptomatic improvement. Likely [facility] Discharge Plan: Residential Plan to discharge in: 24 Hours
[2018-03-25] MEDS: ENOXAPARIN 30 MG/0.3 ML SQ SCH (17:53)
[2018-03-26] MEDS: PIPER/TAZO/NS 3.375gm 3.375 GM/100 ML BAG IVPB SCH ×2 (01:54→08:29)
[2018-03-26] MEDS: D5 0.2 NS 1,000 ML IV SCH ×3 (01:55→15:00)
[2018-03-26] MEDS: VANCOMYCIN 1 GM/250 ML BAG IV SCH (03:57)
[2018-03-26 05:35] LABS: Absolute Lymphocytes (CBC) 1.5 K/uL (0.7-4.9); Absolute Monocytes 0.5 K/uL (0.1-1.3); Absolute Neutrophil 3.7 K/uL (1.8-8.0); Basophils % 0.7 % (0-1.3); Eosinophils % 3.1 % (0-4.4); Hematocrit 31.5 % (39.6-49.0); Lymphocytes % 26.1 % (15.3-44.8); MCH 28.7 pg (27.0-35.0); MCV 87.1 fL (80-100); Monocytes % 7.8 % (3.3-12.3); RBC Red Blood Cell Count 3.61 M/uL (4.33-5.43)
[2018-03-26 05:53] LABS: Albumin 2.4 g/dL (3.4-5.0); Bilirubin Total 0.4 mg/dL (0.2-1.0); Magnesium 2.2 mg/dL (1.8-2.4); Phosphorus 2.3 mg/dL (2.5-4.9); Potassium 3.9 mmol/L (3.5-5.1); Protein, Total 6.4 g/dL (6.4-8.2)
[2018-03-26] MEDS ORDERED: POTASSIUM PHOS IN 0.9 % NACL 15 MMOL/250 ML BAG IV ONE (06:11)
--- NOTE | 2018-03-26 15:32 | P.PN ---
Subjective Date of Service: 03/26/18 Chief Complaint: AMS Patient seen and examined at bedside. No family at bedside. He sounds much better today, more awake and talking more. it seems that his mentation waxes and wanes. Review of Systems As noted Physical Examination - Vital Signs Temperature: 98.0 F Blood Pressure: 154/81 Pulse: 63 Respirations: 20 Pulse Ox (%): 100 - Physical Exam General: Alert, In no apparent distress, Oriented x3 (At this time. Earlier w/ nurse, he was oriented x 1 only) HEENT: Atraumatic, PERRLA, EOMI Neck: Supple, JVD not distended Respiratory: Clear to auscultation bilaterally, Normal air movement Cardiovascular: Regular rate/rhythm, Normal S1 S2 Gastrointestinal: Normal bowel sounds, No tenderness Musculoskeletal: No tenderness Integumentary: No rashes Neurological: Normal speech, Normal tone, Normal affect Lymphatics: No axilla or inguinal lymphadenopathy Assessment And Plan - Plan This is a 82 y M with: Altered mental status Acute respiratory distress Hypernatremia Bacteremia, likely contaminant Hypoglycemia, resolved Continue D5. Discontinue his IV antibiotics as blood cultures have been negative, no evidence of infection at this time. Imaging with no acute abnormalities Respiratory distress resolved Continue oxygen prn Pending symptomatic improvement. Likely discharge back to long term soon
[2018-03-26] MEDS: ENOXAPARIN 30 MG/0.3 ML SQ SCH (17:48)
[2018-03-26] MEDS: ENSURE ENLIVE 237 ML CAN PO SCH (22:31)
[2018-03-26 23:09] LABS: Potassium 4.1 mmol/L (3.5-5.1)
[2018-03-27] MEDS: D5 0.2 NS 1,000 ML IV SCH ×2 (01:00→05:12)
[2018-03-27 05:39] LABS: Absolute Lymphocytes (CBC) 1.8 K/uL (0.7-4.9); Absolute Monocytes 0.5 K/uL (0.1-1.3); Absolute Neutrophil 3.2 K/uL (1.8-8.0); Basophils % 0.6 % (0-1.3); Eosinophils % 3.4 % (0-4.4); Hematocrit 30.7 % (39.6-49.0); MCH 28.7 pg (27.0-35.0); MCV 87.6 fL (80-100); MPV 10.2 fL (7.6-11.3); Monocytes % 8.5 % (3.3-12.3)
[2018-03-27 06:07] LABS: Albumin 2.3 g/dL (3.4-5.0); Bilirubin Total 0.4 mg/dL (0.2-1.0); Potassium 4.1 mmol/L (3.5-5.1); Protein, Total 6.4 g/dL (6.4-8.2)
[2018-03-27 07:14] LABS: Phosphorus 2.7 mg/dL (2.5-4.9)
[2018-03-27] MEDS: ENSURE ENLIVE 237 ML CAN PO SCH ×2 (10:06→22:15)
[2018-03-27] MEDS: D5W 1,000 ML IV SCH ×3 (11:00→21:00)
[2018-03-27 12:03] LABS: Urine Appearance CLEAR; Urine Bilirubin NEGATIVE (NEG); Urine Blood TRACE (NEG); Urine Color YELLOW; Urine Glucose NEGATIVE (NEG); Urine Protein NEGATIVE (NEG)
--- NOTE | 2018-03-27 12:09 | EKG ---
Test Date: 2018-03-27 Test Time: 11:10:05 Banana Loader: KUNAL MEASUREMENT RESULTS: Intervals: Rate: 87 AK: 152 QRSD: 88 QT: 378 QTc: 454 [place]: P: 80 AK: 152 QRS: 3 T: 101 INTERPRETIVE STATEMENTS: Normal sinus rhythm Nonspecific ST and T wave abnormality Abnormal ECG Compared to ECG 03/24/2018 13:10:00 Ventricular premature complex(es) no longer present Prolonged QT interval no longer present ST (T wave) deviation still present Electronically Signed On 03-27-18 12:08:[address] MAGISTRATE by Pa Melendez
[2018-03-27 12:11] LABS: Urine Bacteria 20-50 /HPF (NONE SEEN); Urine Culture Reflex Order REFLEXED; Urine RBC <5 /HPF (NONE SEEN)
[2018-03-27 12:12] LABS: Urine Microscopic Reflex NO UMIC
[2018-03-27 12:14] LABS: Urine Protein/Creatinine Ratio 0.27 ratio (<0.15)
[2018-03-27] MEDS ORDERED: VANCOMYCIN/NS 1 gm 1 GM/250 ML BAG IV SCH (15:00)
[2018-03-27] MEDS: ENOXAPARIN 40 MG/0.4 ML SQ SCH (17:02)
[2018-03-27] MEDS ORDERED: NITROGLYCERIN 0.4 MG/TAB SL PRN (17:53)
[2018-03-27] MEDS ORDERED: Levofloxacin500mg IV 500 MG/100 ML BAG IV ONE (21:00)
[2018-03-27] MEDS ORDERED: DEXTRAN OP SCH (21:00)
[2018-03-27] MEDS ORDERED: CARVEDILOL 6.25 MG TAB PO SCH (21:00)
[2018-03-27] MEDS ORDERED: HYPROMELLOSE OP SCH (21:00)
[2018-03-27] MEDS: HYDRALAZINE HCL 25 MG TABLET PO SCH (22:04)
[2018-03-27] MEDS: ATORVASTATIN 80 MG TAB PO SCH (22:04)
[2018-03-27] MEDS: DIVALPROEX NA 125 MG CAP PO SCH (22:04)
[2018-03-27] MEDS: DONEPEZIL HCL 5 MG TAB PO SCH (22:05)
[2018-03-27] MEDS: MEMANTINE HCL 10 MG TABLET PO SCH (22:05)
[2018-03-27] MEDS: RISPERIDONE 0.25 MG TABLET PO SCH (22:05)
[2018-03-27] MEDS: FAMOTIDINE 20 MG TAB PO SCH (22:05)
[2018-03-27] MEDS: CARVEDILOL 6.25 MG TAB PO SCH (22:41)
--- NOTE | 2018-03-27 22:51 | PN ---
Date of Progress Note: 03/27/2018 Subjective: The patient was seen and examined. Chart reviewed, and case discussed with RN and Dr. Omkar tadeo. The patient is somewhat lethargic, but otherwise does not appear to be in any acute distres s. No acute events overnight. Review of Systems: Negative except as above. Medications: List reviewed. Code Status: Full. Physical Examination: Vital signs: Temperature 99, heart rate 63, blood pressure 127/67, respirations 16, and O2 96% on ro om air. General: Awake, alert, and oriented x2, not any acute distress. Elderly male, frail, cachectic, BMI 18. CV: S1, S2. Peripheral pulses are weak bilaterally. Respiratory: Moving air well bilaterally. No wheezing or stridor. Gastrointestinal: Abdomen is soft, nontender, and nondistended. Positive bowel sounds. Extremities: No clubbing, cyanosis, or edema. Neuro: Cranial nerves 2-12 intact grossly. No focal neurological deficit. Speech is normal. Laboratory Data: Sodium 153, potassium 4.1, chloride 121, CO2 23, BUN 24, creatinine 1.3, glucose 93 , calcium 8.1, phosphorus 2.7, and albumin 2.3. WBC 5.7, H and H 10.1 and 30.7, platelets 168, and n eutrophils 55%. Blood cultures: Coagulase-negative Staph, likely contaminant, otherwise no other gr owth. Urine culture also shows no growth. EKG shows normal sinus rhythm, rate of 87, nonspecific ST -T wave abnormality. Assessment And Plan: An 82-year-old male with: 1.Acute metabolic encephalopathy, not quite back to baseline. The patient still has some hypernatre emerald, is confused. 2.Hypernatremia. Sodium increased today. We will adjust IV fluids. Appreciate Dr. Reyes's inpu t. 3.Acute respiratory distress, improving. The patient is now on room air. 4.Hypoglycemia, resolved. 5.Severe protein-calorie malnutrition. Albumin is 2.3. The patient has a BMI of 18. We will need to provide protein supplementation. Dietitian consultation. 6.Normocytic normochromic anemia, may be dilutional due to IV fluids. We will continue to monitor. We will obtain occult blood. Monitor sodium level. Likely discharge in the next 48-72 hours once improved. SA/MODL Voice ID: [id number] Report ID: [id number]
--- NOTE | 2018-03-28 02:29 | CON ---
Date of Consultation: 03/27/2018 Reason For Consultation: Hypernatremia, elevated BUN and creatinine, and fluid management. History Of Present Illness: This is a pleasant 82-year-old gentleman. All the information has been obtained from the record with significant past medical history of altered mental status, hypertension . The patient was in his regular state of health, [facility] as he was poorly res ponsive. The patient was found to have hypernatremia and elevated BUN and creatinine. For that reas on, we have been consulted. Over the last couple of days, the patient was started on IV fluid and cu rrently on D5 with 2%. His sodium continued to be elevated. The patient has still altered mental st atus, but more awake, oriented. Past Medical History: Include, 1.Hypertension. 2.Coronary artery disease, status post CABG. 3.Hyperlipidemia. 4.Chronic kidney disease. Allergies: NO KNOWN DRUG ALLERGIES. Social History: None obtainable. Review of Systems: None obtainable. Alf Medications: Include aspirin, Tylenol, risperidone, Plavix, Pepcid, nitroglycerin, isos orbide, hydralazine 25 b.i.d., carvedilol, and spironolactone. Current Medications: Include D5 with 2%, carvedilol, Plavix, Pepcid, , nitroglycerin, and risperidone. Physical Examination: Vital Signs: When I saw the patient, blood pressure 162/81, pulse of 62. Chest: Clear to auscultation. Heart: S1, S2. Systolic murmur. Abdomen: Soft, nontender. Extremities: No edema. Laboratory Data: WBC 5.7, H and H 10.1/30.7, and platelets 168. Sodium 153, potassium 4.1, bicarb 2 3, chloride 121, BUN 24, creatinine 1.3, calcium 8.1, and phos 2.7. Upon admission, sodium was 158. Urinalysis: Specific gravity of 1.025, protein-creatinine 0.27, urine sodium of 107, and potassium of 35. Assessment And Plan: 1.Hypernatremia secondary to depletional prerenal. I am going to change IV fluid to D5 water and we will continue hydration. 2.Acute kidney injury secondary to prerenal, on the recovery phase. I am going to go ahead and get protein-creatinine and we will get renal ultrasound, and we will follow up. 3.Hypertension. Currently blood pressure been slightly on the upper side. Keep holding all diuresi s including spironolactone and we will go ahead and increase his carvedilol to 12.5. We will follow up further response. 4.UTI. We will start the patient on Levaquin and we will follow up the patient. ZULAY Voice ID: [id number] Report ID: [id number]
[2018-03-28] MEDS: D5W 1,000 ML IV SCH ×2 (03:13→07:00)
[2018-03-28 06:04] LABS: Absolute Lymphocytes (CBC) 1.5 K/uL (0.7-4.9); Absolute Monocytes 0.4 K/uL (0.1-1.3); Absolute Neutrophil 3.3 K/uL (1.8-8.0); Basophils % 0.4 % (0-1.3); Eosinophils % 2.1 % (0-4.4); Hematocrit 30.5 % (39.6-49.0); Lymphocytes % 27.8 % (15.3-44.8); MCH 29.3 pg (27.0-35.0); MCV 86.9 fL (80-100); MPV 10.8 fL (7.6-11.3); Monocytes % 7.9 % (3.3-12.3); RBC Red Blood Cell Count 3.51 M/uL (4.33-5.43)
[2018-03-28 06:33] LABS: Thyroid Stimulating Hormone 1.26 uIU/mL (0.360-3.740); Uric Acid 5.2 mg/dL (3.5-7.2)
[2018-03-28] MEDS: POLYVINYL ALCOHOL 1.4% 15 ML OPTH SCH ×2 (09:00→21:00)
[2018-03-28] MEDS ORDERED: ISOSORBIDE DINIT 20 MG TAB PO SCH (09:00)
[2018-03-28] MEDS ORDERED: HOME MED 1 EA UNK (Isosorbide Dinitrate [Isosorbide Dinitrate] 30 MG) PO SCH (09:00)
--- NOTE | 2018-03-28 09:45 | RAD REPORT ---
EXAM DESCRIPTION: US - Renal Ultrasound-Complete - 03/27/2018 7:25 pm CLINICAL HISTORY: Chronic renal disease Final report was delayed due to technical malfunction. COMPARISON: None. FINDINGS: The right kidney measures 8.5 x 3.5 x 4.6 cm. The left kidney measures 8.4 x 4.8 x 5.1 cm . Cortical thickness is normal with increased cortical echogenicity typical for medical renal disease . No hydronephrosis or suspicious renal mass. Bladder is contracted around a Mcadams catheter. IMPRESSION: Bilateral medical renal disease with no hydronephrosis or suspicious mass. No other significant findings.
[2018-03-28] MEDS: CLOPIDOGREL 75 MG TABLET PO SCH (10:36)
[2018-03-28] MEDS: FAMOTIDINE 20 MG TAB PO SCH ×2 (10:36→21:38)
[2018-03-28] MEDS: MEMANTINE HCL 10 MG TABLET PO SCH ×2 (10:36→21:38)
[2018-03-28] MEDS: ASPIRIN EC 81 MG TAB PO SCH (10:36)
[2018-03-28] MEDS: RISPERIDONE 0.25 MG TABLET PO SCH ×2 (10:36→21:39)
[2018-03-28] MEDS: DULOXETINE 30 MG CAP PO SCH (10:37)
[2018-03-28] MEDS: CARVEDILOL 6.25 MG TAB PO SCH ×2 (10:37→21:39)
[2018-03-28] MEDS: HYDRALAZINE HCL 25 MG TABLET PO SCH (10:37)
[2018-03-28] MEDS: DIVALPROEX NA 125 MG CAP PO SCH ×3 (10:38→21:39)
[2018-03-28] MEDS: ENSURE ENLIVE 237 ML CAN PO SCH ×2 (10:40→21:40)
[2018-03-28] MEDS: D5 0.45 NS 1,000 ML IV SCH ×2 (10:49→21:37)
[2018-03-28] MEDS: ENOXAPARIN 40 MG/0.4 ML SQ SCH (17:12)
--- NOTE | 2018-03-28 18:26 | PN ---
Date of Progress Note: 03/28/2018 Subjective: The patient is seen and examined. Chart reviewed and case discussed with Dr. Reyes. The patient is much more awake and alert today. No further complaints. Did complain of some chest tightness yesterday. EKG did not show any acute changes. No further chest pain. Medications: Medication list reviewed. Physical Examination: Vital Signs: Temperature 98.6, heart rate 78, blood pressure 118/73, respirations 20, O2 100% on nasal cannula 2 L. General: Awake, alert, oriented x2, not in any acute distress. Elderly male, frail, somewhat ill-appearing. CV: S1, S2. Regular rate and rhythm. Peripheral pulses are weak bilaterally. Respiratory: Moving air well bilaterally. Some diminished breath sounds at the bases. No wheezing or stridor. Gastrointestinal: Abdomen is soft, nontender, nondistended. Positive bowel sounds. No guarding or rigidity. Extremities: No clubbing, cyanosis, or edema. Neurologic: Nonfocal. Laboratory Data: Sodium 143, potassium 4, chloride 110, CO2 26, BUN 26, creatinine 1.3, glucose 171, uric acid 5.2, calcium 8, phosphorus 3, albumin 2. TSH is 1.2. WBC 5.4, H and H 10.3 and 30.5, platelets 178. Blood cultures, no growth. Final one bottle does show coagulase-negative Staph, which is contaminant. Assessment And Plan: An 82-year-old male with: 1. Acute metabolic encephalopathy, significantly improved secondary to hypernatremia. 2. Hypernatremia. Sodium levels now back to normal. IV fluids have been adjusted. Again, appreciate Dr. Reyes's input. 3. Acute respiratory distress, improved. The patient, however, is still requiring some supplemental oxygen. We will continue to monitor. 4. Hypoglycemia, resolved. 5. Severe protein-calorie malnutrition. Albumin is 2.0. 6. Acute kidney injury secondary to prerenal azotemia. Creatinine has now normalized. Renal ultrasound is done, shows bilateral medical renal disease with no hydronephrosis or mass. Nephrology on board. 7. Asymtomatic bacteriuria. Repeat UA does show 5-10 wbc's, bacteria. We will treat with Levaquin. We will resume home medications as appropriate. Follow up with sodium level. 8. Normocytic-normochromic anemia, likely dilutional. An occult blood is pending. Plan: Likely discharge in a.m. if continues to improve. /DIAMOND Voice ID: [id number] Report ID: [id number] ANNE MARIE
--- NOTE | 2018-03-28 19:22 | PN ---
Date of Progress Note: 03/28/2018 Subjective: The patient was admitted with altered mental status, dehydration, severe hypernatremia, and acute kidney injury. The patient was started on D5 with 2% sodium, did not improve. Yesterday, we switched him to D5 sodium, improved significantly, has good urine output. The patient is more cassandra ke today. Physical Examination: Vital Signs: Blood pressure 118/73, pulse of 78, afebrile. Chest: Clear to auscultation. Heart: S1, S2 regular. Abdomen: Soft, nontender. Extremities: No edema. Laboratory Data: H and H 10.3/30.5. Sodium 143, potassium 4, bicarb 26, BUN 26, creatinine 1.3, kelly cium of 8. Phosphorous of 3. Albumin 2.0. TSH 1.2. Current Medications: The patient is on D5, aspirin, atorvastatin, carvedilol 12.5, , Pepci d, hydralazine 25 b.i.d., Levaquin, nitroglycerin, Zofran, risperidone. Assessment And Plan: 1.Acute kidney injury secondary to prerenal, recovered. Back to baseline. 2.Hypertension. Currently blood pressure on the lower side. I discontinued the hydralazine and dis continued the isosorbide, and we will monitor the patient. 3.Hypernatremia secondary to dehydration, overcorrected. I am going to switch the patient to D5 half. 4.Urinary tract infection. Continue current antibiotic. ZULAY Voice ID: [id number] Report ID: [id number]
[2018-03-28] MEDS ORDERED: Levofloxacin 250mg IV 250 MG/50 ML BAG IV SCH (21:00)
[2018-03-28] MEDS: DONEPEZIL HCL 5 MG TAB PO SCH (21:38)
[2018-03-28] MEDS: ATORVASTATIN 80 MG TAB PO SCH (21:38)
[2018-03-29] MEDS: D5 0.45 NS 1,000 ML IV SCH (06:21)
[2018-03-29 07:02] LABS: Albumin 2.1 g/dL (3.4-5.0); Phosphorus 3.1 mg/dL (2.5-4.9); Potassium 4.1 mmol/L (3.5-5.1)
[2018-03-29 07:28] LABS: Magnesium 2.2 mg/dL (1.8-2.4)
[2018-03-29] MEDS: POLYVINYL ALCOHOL 1.4% 15 ML OPTH SCH (09:00)
[2018-03-29] MEDS: ENSURE ENLIVE 237 ML CAN PO SCH (09:00)
[2018-03-29] MEDS: CARVEDILOL 6.25 MG TAB PO SCH (09:26)
[2018-03-29] MEDS: DULOXETINE 30 MG CAP PO SCH (09:26)
[2018-03-29] MEDS: DIVALPROEX NA 125 MG CAP PO SCH ×2 (09:26→14:00)
[2018-03-29] MEDS: ASPIRIN EC 81 MG TAB PO SCH (09:27)
[2018-03-29] MEDS: RISPERIDONE 0.25 MG TABLET PO SCH (09:27)
[2018-03-29] MEDS: MEMANTINE HCL 10 MG TABLET PO SCH (09:27)
[2018-03-29] MEDS: FAMOTIDINE 20 MG TAB PO SCH (09:27)
[2018-03-29] MEDS: CLOPIDOGREL 75 MG TABLET PO SCH (09:27)
[2018-03-29 12:18] VITALS: BP 148/65; TEMP 97.8
[2018-03-29 12:46] VITALS: O2SAT 99
--- NOTE | 2018-03-29 13:54 | P.PN ---
Subjective Date of Service: 03/29/18 Chief Complaint: AMS Subjective: No new changes Pt with AMS , dehydration had LISA and hypernatremia Physical Examination - Vital Signs Temperature: 97.8 F Blood Pressure: 148/65 Pulse: 50 Respirations: 18 Pulse Ox (%): 99 - Physical Exam General: Alert HEENT: Atraumatic Neck: Supple, Without JVD or thyroid abnormality Respiratory: Clear to auscultation bilaterally, Normal air movement Cardiovascular: No edema, Regular rate/rhythm, Normal S1 S2 - Studies Microbiology Data (last 24 hrs): 03/23/18 09:00 Blood - Blood Aerobic Blood Culture - Final 03/23/18 09:00 Blood - Blood Gram Stain - Final 03/23/18 09:00 Blood - Blood Anaerobic Blood Culture - Final No growth in 5 days. 03/23/18 08:45 Blood - Blood Aerobic Blood Culture - Final No growth in 5 days. 03/23/18 08:45 Blood - Blood Anaerobic Blood Culture - Final No growth in 5 days. Assessment And Plan - Current Problems (Diagnosis) (1) Dehydration Current Visit: Yes Status: Acute (2) Acute diastolic heart failure Onset Date: 08/04/17 Current Visit: No Status: Acute (3) Type 2 diabetes mellitus without complications Onset Date: 08/04/17 Current Visit: No Status: Acute - Plan Assessment And Plan: Acute kidney injury secondary to prerenal, Resolved Back to baseline. Hypernatremia secondary to dehydration, resolved encourage PO intake HTN on coreg Clear for discharge from nephrology point of view
--- NOTE | 2018-03-30 13:49 | DS ---
Date of Discharge: 03/29/2018 Consultants: Dr. Reyes with Nephrology. Admitting Diagnoses: 1.Acute metabolic encephalopathy. 2.Acute respiratory distress. 3.Hypernatremia. Discharge Diagnoses: 1.Acute metabolic encephalopathy, improved secondary to hypernatremia. 2.Hypernatremia secondary to dehydration, resolved, corrected. 3.Acute respiratory distress, resolved. 4.Hyperglycemia, resolved. 5.Severe protein-calorie malnutrition, albumin of 2, continue protein supplementation. 6.Acute kidney injury secondary to prerenal azotemia, normalized, asymptomatic bacteriuria. 7.Normocytic normochromic anemia, likely dilutional. Hospital Course: The patient is an 82-year-old male from [place], who came into the hospital fo r acute metabolic encephalopathy and confusion. This is likely secondary to his abnormal sodium leve l. The patient was started on IV fluids. His sodium level did improve and normalize. The patient d id have acute kidney injury as well, which was likely due to dehydration. His medications were adjus brianna. His kidney function did improve and normalize. He was seen by notcher, Dr. Reyes. Goi ng forward, his blood pressure medications were adjusted. He will need to have a repeat BMP in 1 wee k to monitor his kidney function and his sodium levels. The patient did have renal ultrasound which showed medical renal disease. Modified barium swallow study was also done. The patient otherwise is doing well. He is back to his baseline and was then transferred back to nursing facility. Medications: As per medication reconciliation list, his dose of lisinopril will be reduced. Followup: Follow up with primary care physician in 2 to 3 days. Follow up with notcher, Dr. Veliz in 2 weeks. Return to ER for worsening condition. Diet: Renal. Activity: Fall precautions. Physical Examination: General: Awake, alert, oriented x2. No acute distress. Elderly male, frail. CV: S1, S2. Peripheral pulses present. Respiratory: Moving air well bilaterally gastrointestinal. Abdomen: Soft, nontender, nondistended. Positive bowel sounds. Extremities: No clubbing, cyanosis, or edema. Total time spent discharging the patient was 38 minutes. SA/MODL Voice ID: [id number] Report ID: [id number]
== END 2018-03-29 15:56 | DRG 640 ==
LOC: ER 08:04 → ERHOLD 10:31 → 4TH 16:49
PROVIDERS: ADMIT Family Medicine; ATTEND Family Medicine
DX: E87.0 Hyperosmolality and hypernatremia (principal); G93.41 Metabolic encephalopathy; E43 Unspecified severe protein-calorie malnutrition; I50.31 Acute diastolic (congestive) heart failure; N17.9 Acute kidney failure, unspecified; I13.0 Hypertensive heart and chronic kidney disease with heart failure and stage 1 through stage 4 chronic kidney disease, or unspecified chronic kidney disease; N39.0 Urinary tract infection, site not specified; Z68.1 Body mass index [BMI] 19.9 or less, adult; D64.9 Anemia, unspecified; R06.03 Acute respiratory distress; R13.12 Dysphagia, oropharyngeal phase; E86.0 Dehydration; E11.649 Type 2 diabetes mellitus with hypoglycemia without coma; I25.10 Atherosclerotic heart disease of native coronary artery without angina pectoris; E78.49 Other hyperlipidemia; I25.2 Old myocardial infarction; J44.9 Chronic obstructive pulmonary disease, unspecified; E11.22 Type 2 diabetes mellitus with diabetic chronic kidney disease; F41.9 Anxiety disorder, unspecified; F32.9 Major depressive disorder, single episode, unspecified; G30.9 Alzheimer's disease, unspecified; F02.80 Dementia in other diseases classified elsewhere, unspecified severity, without behavioral disturbance, psychotic disturbance, mood disturbance, and anxiety; N18.3 Chronic kidney disease, stage 3 (moderate); Z79.82 Long term (current) use of aspirin; Z79.02 Long term (current) use of antithrombotics/antiplatelets; Z95.1 Presence of aortocoronary bypass graft
CPT/HCPCS: 36415; 51702; 70450; 71045; 74230; 76770; 80048; 80053; 80069; 80076; 80202; 81003; 81015; 82550; 82553; 82570; 82947; 82962; 83605; 83690; 83735; 83935; 84100; 84132; 84145; 84156; 84300; 84443; 84484; 84550; 85025; 85610; 85730; 87040; 87086; 87088; 87205; 93005; 94760; 96374; 96375; 99285; J0690; J1650; J2543; J3370; J7030

== ENCOUNTER 2018-05-18 17:10 | Inpatient (IN) | payer OTHER ==
--- OUTSIDE RECORDS SUMMARY | 2018-05-18 17:13 | XMS REPORT ---
:1935 [facility] Address [address] [place] [address] [place] [id number] Care Team Providers Name Role Phone DR NOELLE GOLD Unavailable Unavailable Problems This patient has no known problems. Allergies, Adverse Reactions, Alerts This patient has no known allergies or adverse reactions. Medications This patient has no known medications. Encounters Start End Encounter Admission Attending Care Care Encounter Date/Time Date/Time Type Type Clinicians Facility Department ID 2017-05-20 2017-05-31 Inpatient E AMPARO GOLDYahaira ALU [id number] 16:47:00 12:30:00 NOELLE Results Test Description Test [...] UR (test code=USPERM) /HPF NONE COMPREHENSIVE METABOLIC [id number] 19:16:00 Test Item Value Reference Range Comments [...] purposes ALCOHOL (test code=56A) <10 mg/dL <=10 [id number] 19:16:00 Test Item Value Reference Range Comments ACETAMINPH (test code=94M) <2.0 ug/mL 10.0-30.0 DRUGS OF [id number] 19:12:00 Test Item Value Reference Range Comments [...] Barbiturates 200 ng/mL Opiates 2000 ng/mL AMMONIA [id number] 19:01:00 Test Item Value Reference Range Comments AMMONIA (test code=54A) 20 umol/L 11-32 XR CHEST 1 VIEW [id number] 17:10:18Exam: Chest portable erectLocation: D4.History: medical clearanceComparison: NoneFindings:The lungs are clear. No infiltrate or effusion is seen. The pulmonaryvasculature is normal. The heart size is mildly enlarged. 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 Atherosclerosis involves the aorta. The mediastinalsilhouette is unremarkable. The bony thorax is intact with degenerative changesnoted.Impression:No acute disease.
--- OUTSIDE RECORDS SUMMARY | 2018-05-18 17:13 | XMS REPORT | Clinical Summary ---
:1935 Author Organization [facility] Address [address] [place] [address] Care Team Providers Name Role Phone Asked, [...] Health Maintenance Due Date Last Done Comments SHINGLES VACCINES (1 of 2) 12/19/1987 PNEUMOCOCCAL POLYSACCHARIDE VACCINE AGE 65 AND OVER 2002 PNEUMOCOCCAL-13 2002 INFLUENZA VACCINE 11/29/2017 Results Not on fileafter 05/17/2017 Insurance Payer Benefit Plan / Group Subscriber ID Type Phone Address MEDICARE MEDICARE PART A AND B xxxxxxxxxxx Medicare [place], [place] MEDICAID MEDICAID xxxxxxxxx Medicaid [id number] [facility] [id number] (Home) [place] [address] [facility] Outside Other [phone] [place] [address] 8 (Home) Kim Barclay Attn: [place] [address] Advance Directives Patient has advance care planning documents on file. For more information, please contact:[facility] [place] [address]
--- OUTSIDE RECORDS SUMMARY | 2018-05-18 17:13 | XMS REPORT | Continuity of Care Document ---
:1935 Author Organization Interface Problems Problem Status Onset Classification Date Comments Source Date Reported UTI Active 04/27/20 Finding 08/04/[address] [facility] [place] Anemia Active 04/27/20 Finding 08/04/[address] [facility] [place] COPD Active 04/27/20 Finding 08/04/[address] [facility] [place] Hypertension Active 04/27/20 Finding 08/04/[address] [facility] [place] Medications Medication Details Route Status Patient Ordering Order Source Instructions Provider Date Furosemide DAILY Active Ruben [facility] [place] Acetaminophen Q4H PRN Active [facility] [place] Risperidone TWICE Active [facility] [place] Spironolactone DAILY Active [facility] [place] Hydralazine TWICE Active [facility] [place] Donepezil AT BEDTIME Active [facility] [place] Aspirin DAILY Active [facility] [place] Carvedilol TWICE Active [facility] [place] Duloxetine Hcl TWICE Active [facility] [place] Famotidine AT BEDTIME Active [facility] [place] Isosorbide DAILY Active [facility] Dinitrate [facility] [place] Atorvastatin AT BEDTIME Active [facility] Calcium [facility] [place] Lisinopril DAILY Active [facility] [place] Memantine Hcl TWICE Active [facility] [place] Nitroglycerin NEEDED Active [facility] chest pain [place] Clopidogrel DAILY Active [facility]. Bisulfate 017 [facility] [place] Allergies, Adverse Reactions, Alerts Substance Category Reaction Severity Reaction Status Date Comments Source type Reported Immunizations Immunization Date Given Site Status Last Updated Comments Source Results Order Name Results Value Reference Date Interpretation Comments Source Range Laboratory Bedside 150 mg/dl 65 - 120 08/04 [facility]. Studies Glucose [facility] [place] [facility] Hemoglobin 5.6 % 4 - 6.0 08/04 [facility]. Studies A1c [facility] [place] [facility] Microcytosis Microcytosi 08/04 [facility]. Studies s [facility] [place] [facility] Macrocytosis Macrocytosi 08/04 [facility]. Studies s [facility] [place] [facility] [place] Cells David Cells 08/04 [facility]. Studies /2017 [facility] [place] [facility] Blood Blood 08/04 [facility]. Studies Morphology Morphology [facility] - Comment Comment [place] [facility] Anisocytosis Anisocytosi 08/04 [facility]. Studies s [facility] [place] [facility] White Blood 2.8 K/uL 4.3 - 10.9 08/04 [facility]. Studies Count /2017 [facility] [place] [facility] Red Cell 16.5 % 12.1 - 08/04 [facility] Studies Distribution 15.2 [facility] Width [place] [facility] Red Blood 3.61 M/uL 4.33 - 08/04 [facility]. Studies Count 5.43 /2017 [facility] [place] [facility] Platelet 187 K/uL 152 - 406 08/04 [facility]. Studies Count /2017 [facility] [place] [facility] Neutrophils % 69.2 % 41.7 - 08/[address] [facility] St. Studies 73.7 /2017 [facility] [place] [facility] Monocytes % 11.9 % 3.3 - 12.3 08/04 [facility]. Studies /2018 [facility] [place] [facility] Mean Platelet 9.0 fL 7.6 - 11.3 08/04 [facility]. Studies Volume /2018 [facility] [place] [facility] Mean 88.4 fL 80 - 100 08/04 [facility]. Studies Corpuscular /2018 [facility] Volume [place] [facility] Mean 33.3 g/dL 32.0 - 08/04 [facility]. Studies Corpuscular 36.0 /2017 [facility] Hemoglobin [place] [facility] Laboratory Mean 29.4 pg 27.0 - [address] [facility] St. Studies Corpuscular 35.0 /2017 [facility] Hemoglobin [place] Laboratory Lymphocytes % 18.3 % 15.3 - [address] [facility] St. Studies 44.8 /2017 [facility] [place] Laboratory Hemoglobin 10.6 g/dL 13.6 - [address] [facility] St. Studies 17.9 /2017 [facility] [place] Laboratory Hematocrit 31.9 % 39.6 - 08/[address] [facility] St. Studies 49.0 [facility] [place] [facility] Eosinophils % 0.0 % 0 - 4.[address] [facility] St[facility] Studies [facility] [place] [facility] Basophils % 0.6 % 0 - 1.3 08/[address] [facility] St. Studies /2017 [facility] [place] Laboratory Absolute 1.9 K/uL 1.8 - 8.0 08/[address] [facility] St. Studies Neutrophil /2017 [facility] [place] [facility] Absolute 0.3 K/uL 0.1 - 1.3 08/[address] [facility] St. Studies Monocytes /2017 [facility] - (CBC) [place] [facility] Absolute 0.5 K/uL 0.7 - 4.9 08/[address] [facility] St. Studies Lymphocytes /2017 [facility] - (CBC) [place] Laboratory Absolute 0.0 K/uL 0 - 0.5 08/[address] [facility] St. Studies Eosinophils /2017 [facility] - (CBC) [place] [facility] Absolute 0.0 K/uL 0 - 0.5 08/[address] [facility] St. Studies Basophils /2018 [facility] (CBC) [place] Laboratory Sodium Level 138 mEq/L 135 - [address] [facility] St[address] Studies /2017 [facility] [place] Laboratory Potassium 4.8 mEq/L 3.6 - 5.[address] [facility] St[facility] Studies Level /2017 [facility] [place] Laboratory Glucose Level 117 mg/dL 65 - [address] [facility] St[address] Studies /2017 [facility] [place] Laboratory Estimat 45 mL/min [address] [facility] St. Studies Glomerular /2017 [facility] Filtration [place] Rate Laboratory Creatinine 1.76 mg/dL 0.61 - [address] [facility] St. Studies 1.24 [facility] [place] Laboratory Chloride 111 mEq/L 101 - 111 08/[address] Studies Level /2018 [facility] [place] Laboratory Carbon 19 mEq/L 21 - 31 08/04 St. Studies Dioxide Level /2017 [facility] [place] Laboratory Calcium Level 8.7 mg/dL 8.5 - 10.5 08/04 St. Studies /2017 [facility] [place] Laboratory Blood Urea 39 mg/dL 6 - 20 08/04 St. Studies Nitrogen /2017 [facility] [place] Laboratory Urine pH 5.5 08/03 St. Studies /2017 [facility] [place] Laboratory Urine Total Urine Total 08/03 St. Studies Protein Protein /2017 [facility] [place] Laboratory Urine 1.025 08/[address] [facility] St. Studies Specific /2017 [facility] [place] Laboratory Urine Nitrite Urine 08/03 St. Studies Nitrite /2017 [facility] [place] Laboratory Urine Urine 08/[address] [facility] St. Studies Leukocyte Leukocyte /2017 [facility] - Esterase Esterase [place] Laboratory Urine Ketones Urine 08/[address] [facility] St. Studies Ketones /2017 [facility] [place] Laboratory Urine Glucose Urine 08/[address] [facility] St. Studies Glucose /2017 [facility] [place] Laboratory Urine Blood Urine Blood 08/[address] [facility] St[facility] Studies [facility] [place] Laboratory Urine WBC null 08/[address] [facility] St. Studies /2017 [facility] [place] Laboratory Urine null 08/[address] [facility] St. Studies Squamous [facility] Epithelial [place] Cells Laboratory Urine RBC null 08/[address] [facility] St. Studies [facility] [place] Laboratory Urine Hyaline Urine 08/[address] [facility] St. Studies Casts Hyaline /2017 [facility] Casts [place] Laboratory Urine Culture Urine 08/[address] [facility] St. Studies Reflexed Culture /2017 [facility] Reflexed [place] Laboratory Urine null 08/[address] [facility] St. Studies Bacteria /2017 [facility] [place] Laboratory Urine Urine 08/[address] [facility] St. Studies Amorphous Amorphous /2017 [facility] - Sediment Sediment [place] Laboratory Procalcitonin 0.09 ng/mL 08/[address] [facility] St. Studies /2017 [facility] [place] Laboratory Prothrombin 14.6 9.5 - 12.5 08/[address] [facility] St. Studies Time SECONDS /2017 [facility] [place] Laboratory INR 1.23 08/[address] [facility] St. Studies International /2017 [facility] - Normalized [place] Ratio Laboratory Activated 31.0 24.3 - [address] Studies Partial SECONDS 36.9 [facility] Thromboplast [place] Time Laboratory Creatine 3.1 ng/ml 0.3 - 4.0 08/03 [facility]. Studies Kinase MB /2017 [facility] [place] Laboratory Total 1.0 mg/dL 0.3 - 1.2 08/03 [facility]. Studies Bilirubin [facility] [place] Laboratory Serum Total 7.2 g/dL 6.0 - 8.3 08/[address] [facility] St. Studies Protein /2017 [facility] [place] Laboratory Magnesium 2.2 mg/dL 1.8 - 2.5 08/03 [facility]. Studies Level /2017 [facility] [place] Laboratory Globulin 3.6 g/dL 2.3 - 3.5 08/[address] [facility] St. Studies /2017 [facility] [place] Laboratory Direct 0.3 mg/dL 0 - 0.2 08/03 [facility]. Studies Bilirubin [facility] [place] Laboratory Creatine 172 IU/L 22 - 269 08/[address] [facility] St. Studies Kinase /2017 [facility] [place] Laboratory Aspartate 50 IU/L 10 - 42 08/03 [facility]. Studies Amino Transf /2017 [facility] - (AST/SGOT) [place] Laboratory Alkaline 162 IU/L 42 - 121 08/03 [facility]. Studies Phosphatase /2017 [facility] [place] Laboratory Albumin/Globu 1.0 1.1 - 1.8 08/03 [facility]. Studies margot Ratio /2017 [facility] [place] Laboratory Albumin 3.6 g/dL 3.2 - 5.5 08/[address] [facility] St. Studies /2017 [facility] [place] Laboratory Alanine 45 IU/L 10 - 60 08/03 [facility]. Studies Aminotransfer /2017 [facility] ase [place] (ALT/SGPT) Laboratory Rapid 0.04 ng/mL 08/03 [facility]. Studies Troponin I /2017 [facility] [place] Laboratory Lactic Acid 10.8 mg/dL 4.5 - 19.8 08/03 [facility]. Studies Level /2017 [facility] [place] Laboratory B-Type 2323 pg/ml 08/03 [facility]. Studies Natriuretic [facility] Peptide [place] Vital Signs Vital Sign Value Date Comments Source Temperature Oral (F) 98.0 F 08/04/[address] [facility] [place] Heart Rate 68 08/04/[address] [facility] St. Viktoriya Purvis Respitory Rate 18 08/04/[address] [facility] StBakari Purvis Systolic (mm Hg) 100 08/04/[address] [facility] St. Viktoriya Purvis Diastolic (mm Hg) 61 08/04/[address] [facility] St[facility] Viktoriya Purvis Height 72 08/04/[address] [facility] St[facility] Viktoriya Purvis Weight 132.20 08/04/[address] [facility] St. Viktoriya Purvis Encounters Location Location Encounter Encounter Reason Attending ADM DC Status Source Details Type Number For Provider Date Date Visit [facility] St. Discharged [id number] 08/03 08/[address] [facility] Inpatient 75 /2017 Viktoriya Purvis Procedures Procedure Code Date Perfomer Comments Source Anaerobic Blood [id number] [facility] St[facility] [place] - Culture 8 [place] Aerobic Blood [id number] [facility] StBakari Sadler - Culture 8 [place] Head Brain Wo [id number] [facility] - Cont 8 [place] Chest Single [id number] [facility] - View 8 [place]
[2018-05-18 18:04] LABS: Absolute Lymphocytes (CBC) 1.1 K/uL (0.7-4.9); Absolute Monocytes 0.2 K/uL (0.1-1.3); Absolute Neutrophil 2.4 K/uL (1.8-8.0); Basophils % 0.8 % (0-1.3); Eosinophils % 0.3 % (0-4.4); Hematocrit 36.9 % (39.6-49.0); Lymphocytes % 28.2 % (15.3-44.8); MPV 9.9 fL (7.6-11.3); Monocytes % 5.5 % (3.3-12.3); RBC Red Blood Cell Count 4.18 M/uL (4.33-5.43)
--- NOTE | 2018-05-18 18:17 | RAD REPORT ---
EXAM DESCRIPTION: RAD - Chest Single View - 05/18/2018 5:47 pm CLINICAL HISTORY: Unresponsive, altered mental status, hypotension COMPARISON: March 2018 TECHNIQUE: AP portable chest image was obtained 1743 hours . FINDINGS: Lungs are clear. Heart and vasculature are normal. No measurable pleural effusion and no p neumothorax. No acute bony abnormality seen. No acute aortic findings suspected. IMPRESSION: No acute cardiopulmonary process. No significant interval change.
[2018-05-18 18:20] LABS: Potassium 4.7 mmol/L (3.5-5.1); Troponin (Emerg Dept Use Only) 0.25 ng/mL (0.0-0.045)
[2018-05-18] MEDS ORDERED: NOREPINEPHRINE 4mg/D5W 250mL 4 MG/250 ML BAG IV ONE (18:32)
[2018-05-18] MEDS ORDERED: NA CHLORIDE 0.9% 2,000 ML ONE (18:32)
--- NOTE | 2018-05-18 18:53 | EKG ---
Test Date: 2018-05-18 Test Time: 17:22:45 [employer]: SHUKRI MEASUREMENT RESULTS: Intervals: Rate: 68 NE: 150 QRSD: 90 QT: 424 QTc: 450 [place]: P: 79 NE: 150 QRS: -62 T: 116 INTERPRETIVE STATEMENTS: Sinus rhythm with occasional premature ventricular complexes Biatrial enlargement Left axis deviation Inferior infarct, age undetermined ST & T wave abnormality, consider lateral ischemia Abnormal ECG Compared to ECG 03/27/2018 11:10:05 Ventricular premature complex(es) now present Atrial abnormality now present Left-axis deviation now present Myocardial infarct finding now present Possible ischemia now present ST (T wave) deviation still present Electronically Signed On 05-18-18 18:53:19 ADJUNCT PHYSICS INSTRUCTOR by Pa Melendez
--- NOTE | 2018-05-18 19:39 | RAD REPORT ---
EXAM DESCRIPTION: CT - Head Brain Wo Cont - 05/18/2018 7:15 pm CLINICAL HISTORY: Unresponsive, transient alteration of awareness COMPARISON: CT head March 2018 TECHNIQUE: Axial 5 mm thick images of the head were obtained without IV contrast. All CT scans are performed using dose optimization technique as appropriate and may include automated exposure control or mA/KV adjustment according to patient size. FINDINGS: No intracranial hemorrhage, mass, edema or shift of mid-line structures. No acute infarcti on changes seen. No abnormal extra-axial fluid collections. Patient has advanced atrophy and chronic ischemic change. Ventricles are in proportion to the amount of volume loss. Dense arterial tree calci fications are present. There are dense calcifications along the falx and tentorium. The small focus o f encephalomalacia is present posterior left frontal lobe. Mastoid air cells and visualized portions of the paranasal sinuses are clear. No acute bony findings. IMPRESSION: No hemorrhage, edema, mass or other acute intracranial finding. Advanced atrophy and chronic ischemic changes are present. Ventricles are in proportion.
[2018-05-18 19:59] LABS: Urine Blood 3+ (NEG); Urine Glucose NEGATIVE (NEG); Urine Protein 2+ (NEG); Urine Specific Gravity >1.030 (1.005-1.030)
[2018-05-18 20:12] LABS: Urine Bacteria <20 /HPF (NONE SEEN); Urine RBC 20-50 /HPF (NONE SEEN)
[2018-05-18 20:13] LABS: Urine Culture Reflex Order REFLEXED
--- NOTE | 2018-05-18 21:02 | ER ---
Nurse's Notes [facility] Name: Ace Zuniga Age: 82 yrs Sex: Male : 1935 Arrival Date: 05/18/2018 Time: 17:11 Bed 4 Private MD: Diagnosis: Severe sepsis without septic shock Presentation: 05/18 17:20 Presenting complaint: EMS states: called for pt unresponsive, and altered mental sg status, [facility] staff reports the pt to be normal aa\T\Ox1 to self, but will not really interact for quite some time now, pt can nod yes or no appropriately to questions per EMS staff. Transition of care: patient was received from another setting of care (long-term care [facility]. Onset of symptoms was May 18, 2018. Risk Assessment: Do you want to hurt yourself or someone else? Patient reports no desire to harm self or others. Initial Sepsis Screen: Does the patient meet any 2 criteria? No. Patient's initial sepsis screen is negative. Does the patient have a suspected source of infection? No. Patient's initial sepsis screen is negative. Care prior to arrival: IV initiated. I/O access to LLE Glucose check: 83. 17:20 Method Of Arrival: EMS: [facility] sg 17:35 Acuity: SYLVAIN 2 sg Historical: - Allergies: 18:04 No Known Allergies; sg - PMHx: 18:04 Alzheimers; Anxiety; cerebrovascular insufficiency; chronid kidney disease, stage III; sg COPD; Depression; Diabetes - NIDDM; DYSPHAGIA; GERD; Hyperlipidemia; Hypertension; Myocardial infarction; non ambulatory; UTI; weakness,generalized; - PSHx: 18:04 Unable to obtain; sg - Immunization history:: Adult Immunizations unknown. - Social history:: Smoking status: unknown. - Family history:: not pertinent. - Ebola Screening: : Unable to complete screening because. - Hospitalizations: : No recent hospitalization is reported. Screenin:20 Abuse screen: no obvious signs of abuse noted, pt unable to answer screening questions sg at thi stime. Nutritional screening: No deficits noted. Tuberculosis screening: n/a. Fall Risk None identified. Assessment: 17:20 General: Appears in no apparent distress. ill, slender, cachectic, Behavior is drowsy, sg quiet. Pain: Denies pain. Neuro: Level of Consciousness is awake, lethargic, Oriented to person, will report his name at this time, in a soft quiet tone. Cardiovascular: Heart tones S1 S2 present Capillary refill is brisk in bilateral fingers Rhythm is sinus rhythm. Respiratory: Airway. 18:13 Reassessment: Patient appears in no apparent distress at this time. at bedside sg for insertion of central line. 18:30 Reassessment: Patient appears in no apparent distress at this time. central line in sg place, orders received to initiate Levo at 5 mcg/kg/min, NS 0.9 1000mL bolus via central line. 18:45 Reassessment: Patient and/or family updated on plan of care and expected duration. Pain sg level reassessed. IV fluids infusing via central line, pt VS improving at this time, notified, will continue to monitor. 19:05 General: Appears ill, slender, cachectic, Behavior is calm, drowsy, quiet. Pain: Denies rr5 pain. Neuro: Level of Consciousness is awake, confused, lethargic, Oriented to disoriented. 19:05 Cardiovascular: Heart tones S1 S2 present Capillary refill < 3 seconds Patient's skin rr5 is warm and dry. Rhythm is sinus rhythm. Respiratory: Airway is patent Respiratory effort is even, unlabored, Respiratory pattern is regular, symmetrical. GI: Abdomen is flat, Stools are reported to be loose, Last BM was May 18, 2018. : Mcadams in place Urine is clear. EENT: No signs and/or symptoms were reported regarding the EENT system. Derm: Skin is intact. Musculoskeletal: Capillary refill < 3 seconds, Range of motion: limited in all extremities. 19:50 Reassessment: Patient appears in no apparent distress at this time. No changes from rr5 previously documented assessment. Patient and/or family updated on plan of care and expected duration. Pain level reassessed. levophed taper down to 2.5 mcg/kg/min. 21:00 Reassessment: Patient appears in no apparent distress at this time. vitally stable. rr5 turned on left side lying postion. 21:35 Reassessment: Patient appears in no apparent distress at this time. BP 159/94mmHg ED rr5 provider informed. levophed drip discontinued. 22:10 Reassessment: Patient appears in no apparent distress at this time. diaper changed rr5 loose stool noted. Vital Signs: 17:55 BP 77 / 57; Pulse 70; Resp 17; Temp 96.0(R); Pulse Ox 100% on R/A; sg 18:20 BP 72 / 44; Pulse 67; Resp 17; Pulse Ox 100% on R/A; sg 18:30 BP 77 / 52; Pulse 70; Pulse Ox 100% ; sg 18:51 BP 104 / 61; Pulse 71; Resp 18 S; Pulse Ox 98% ; iw 19:10 BP 119 / 67; Pulse 70; Resp 17; Pulse Ox 100% on R/A; Weight 72.57 kg; rr5 19:43 BP 149 / 83; Pulse 80; Resp 16; Pulse Ox 100% on R/A; mt 20:52 BP 111 / 56; Pulse 64; Resp 16; Pulse Ox 98% on R/A; mt 21:35 BP 159 / 94; Pulse 80; Resp 16; Pulse Ox 100% ; rr5 22:15 BP 154 / 91; Pulse 84; Resp 17; Pulse Ox 98% ; rr5 22:27 BP 153 / 97; Pulse 81; Resp 16; Temp 97.7(A); Pulse Ox 100% ; rr5 22:55 BP 151 / 86; Pulse 80; Resp 15; Temp 97.7(A); Pulse Ox 100% on R/A; rr5 19:10 weight estimated rr5 [place] Coma Score: 19:10 Eye Response: spontaneous(4). Verbal Response: confused(4). Motor Response: obeys rr5 commands(6). Total: 14. ED Course: 17:11 Patient arrived in ED. rn 17:11 Jesu Haro MD is Attending Physician. rn 17:20 Arm band placed on. sg 17:35 Pablo Munoz, RN is Primary Nurse. sg 17:37 Triage completed. sg 17:40 Patient has correct armband on for positive identification. Placed in gown. Bed in low sg position. Call light in reach. Side rails up X2. ekg monitor on. Pulse ox on. NIBP on. thermostat increased for warming measures Warm blanket given. Pillow given. Verbal reassurance given. Head of bed elevated. 17:47 Chest Single View XRAY In Process Unspecified. EDMS 17:51 Note: pt not ready per pablo. ka 18:20 Initial lab(s) drawn, by ED staff, sent to lab. First set of blood cultures drawn by ED sg staff. Inserted saline lock: 24 gauge in right hand, using aseptic technique. Blood collected. 18:30 Assisted provider with central line placement. Triple lumen line placed in right sg femoral. Line placed by Tesha CRISTINA Placement verified by blood return, Dressed with 4X4s, Tegaderm, Blood was collected. Patient tolerated well. Time-out/Briefing performed prior to start of procedure? Yes. Was handwashing/sanitizing done immediately prior to procedure? Yes. Was patient positioned to in a way to prevent air embolism? Yes. Was procedure site sterilized? Yes, with chlorhexidine. Was the site allowed to dry? Yes. Was local anesthetic and/or sedation utilized? Yes. During the procedure, did the Practitioner(s) maintain a sterile field? Yes. Were unused ports clamped during insertion? Yes. Was a 2nd qualified MD obtained after 3 unsuccessful insertion attempts? No. Was blood aspirated from each lumen? Yes. After the procedure, did the Practitioner(s) clean the site and apply a sterile dressing? Yes. 18:40 Warm blanket given. Cleaned of incontinence. Linen changed. sg 18:40 Second set of blood cultures drawn by ED staff. sg 19:00 Mcadams cath inserted, using sterile technique, 16 Fr., by me, balloon inflated, to sg gravity drainage, other no urine output noted at this time. 19:[address] via stretcher. vm2 19:15 CT Head Brain wo Cont In Process Unspecified. EDMS 19:19 Attending Physician role handed off by Jesu Haro MD 19:19 Akira Gutierrez MD is Attending Physician. gs 19:36 Flu and/or RSV swab sent to lab. sg 21:00 Najma Khan MD is Hospitalizing Provider. gs 22:09 Cleaned of incontinence. Linen changed. mt 23:09 Patient admitted, IV remains in place. intact, No redness/swelling at site. rr5 Administered Medications: 17:42 Drug: NS 0.9% 1000 ml Route: IV; Rate: 1000 ml; Site: right hand; iw 18:28 Follow up: Response: No adverse reaction; IV Status: Completed infusion; IV Intake: sg 990ml 18:40 Drug: NS 0.9% 1000 ml Route: IV; Rate: 1000 ml; Site: right femoral; sg 19:30 Follow up: Response: No adverse reaction; IV Status: Completed infusion; IV Intake: rr5 1000ml 18:40 Drug: Norepinephrine (4 mg/250 mL D5W) 4 mcg/min Route: IV; Rate: calculated rate; sg Site: right femoral; 19:50 Follow up: Rate change 2.5 mcg/kg/min; IV Status: Infusion continued rr5 21:35 Follow up: IV Status: Order to discontinue infusion; Bp 159/94mmHg ED provider informed rr5 21:00 Drug: Cefepime 1 grams Route: IVPB; Rate: 200 ml/hr; Infused Over: 30 mins; Site: right rr5 femoral; 21:30 Follow up: Response: No adverse reaction; IV Status: Completed infusion; IV Intake: rr5 100ml 21:00 Drug: NS 0.9% 1000 ml Route: IV; Rate: 1 bolus; Site: right femoral; rr5 22:00 Follow up: Response: No adverse reaction; IV Status: Completed infusion; IV Intake: rr5 1000ml Point of Care Testing: Blood Glucose: 17:40 Blood Glucose: 82 mg/dL; iw Ranges: Intake: 18:28 IV: 990ml; Total: 990ml. sg 19:30 IV: 1000ml; Total: 1990ml. rr5 21:30 IV: 100ml; Total: 2090ml. rr5 22:00 IV: 1000ml; Total: 3090ml. rr5 Output: 22:10 Stool: 1 (Loose Stool) ; Total: 0ml. rr5 22:54 Urine: 450ml (Mcadams); Total: 450ml. rr5 Outcome: 21:02 Decision to Hospitalize by Provider. 23:09 Admitted to Tele accompanied by tech, via stretcher, with chart, Report called to rr5 georgette JACKSON 23:09 Condition: stable 23:09 Instructed on the need for admit. 23:36 Patient left the ED. rr5 Signatures: Dispatcher [employer] EDMS Pablo Munoz RN RN sg Williams, Irene, RN RN Jesu Haro MD MD rn Aguilera, Katelyn ka McGuire, Victoria [facility] Gutierrez, Akira, MD MD gs Arygoza, Eugene, RN RN rr5
--- NOTE | 2018-05-18 21:03 | EDPHYS ---
Physician Documentation [facility] Name: Ace Zuniga Age: 82 yrs Sex: Male : 1935 Arrival Date: 05/18/2018 Time: 17:11 Bed 4 Private MD: ED Physician Akira Gutierrez HPI: 05/18 17:12 This 82 yrs old Black Male presents to ER via Unassigned with complaints of AMS, rn unresponsive. 17:12 The patient presents with decreased mental status, decreased responsiveness. Onset: The rn symptoms/episode began/occurred at an unknown time. Possible causes: unknown. Associated signs and symptoms: Pertinent positives: confusion. Current symptoms: In the emergency department the patient's symptoms have improved. It is unknown whether or not the patient has had similar symptoms in the past. EMS reports AMS, found unresponsive, normal glucose, + hx of dementia and psych problems, initial BP was 50 systolic, unable to get IV, got IO, and given some fluids with improvement of symptoms. . Historical: - Allergies: 18:04 No Known Allergies; sg - PMHx: 18:04 Alzheimers; Anxiety; cerebrovascular insufficiency; chronid kidney disease, stage III; sg COPD; Depression; Diabetes - NIDDM; DYSPHAGIA; GERD; Hyperlipidemia; Hypertension; Myocardial infarction; non ambulatory; UTI; weakness,generalized; - PSHx: 18:04 Unable to obtain; sg - Immunization history:: Adult Immunizations unknown. - Social history:: Smoking status: unknown. - Family history:: not pertinent. - Ebola Screening: : Unable to complete screening because. - Hospitalizations: : No recent hospitalization is reported. ROS: 17:12 Unable to obtain ROS due to altered mental status, baseline dementia. rn Exam: 17:12 Constitutional: Thin cachectic male, + strong smell of urine Head/Face: rn Normocephalic, atraumatic. Eyes: Pupils equal round and reactive to light, extra-ocular motions intact. Lids and lashes normal. Conjunctiva and sclera are non-icteric and not injected. Cornea within normal limits. Periorbital areas with no swelling, redness, or edema. ENT: dry MM, no stridor Cardiovascular: Regular rate and rhythm, No pulse deficits, no JVD Respiratory: Diminished breath sounds bilaterally with coarse sounds Abdomen/GI: scaphoid, soft, non-tender Skin: warm, dry MS/ Extremity: Pulses equal, no cyanosis. Neuro: Awake, alert, follows commands, 4/5 strength bilateral upper ext, unable to lift either lower ext. Answers yes and no. Vital Signs: 17:55 BP 77 / 57; Pulse 70; Resp 17; Temp 96.0(R); Pulse Ox 100% on R/A; sg 18:20 BP 72 / 44; Pulse 67; Resp 17; Pulse Ox 100% on R/A; sg 18:30 BP 77 / 52; Pulse 70; Pulse Ox 100% ; sg 18:51 BP 104 / 61; Pulse 71; Resp 18 S; Pulse Ox 98% ; iw 19:10 BP 119 / 67; Pulse 70; Resp 17; Pulse Ox 100% on R/A; Weight 72.57 kg; rr5 19:43 BP 149 / 83; Pulse 80; Resp 16; Pulse Ox 100% on R/A; mt 20:52 BP 111 / 56; Pulse 64; Resp 16; Pulse Ox 98% on R/A; mt 21:35 BP 159 / 94; Pulse 80; Resp 16; Pulse Ox 100% ; rr5 22:15 BP 154 / 91; Pulse 84; Resp 17; Pulse Ox 98% ; rr5 22:27 BP 153 / 97; Pulse 81; Resp 16; Temp 97.7(A); Pulse Ox 100% ; rr5 22:55 BP 151 / 86; Pulse 80; Resp 15; Temp 97.7(A); Pulse Ox 100% on R/A; rr5 19:10 weight estimated rr5 [place] Coma Score: 19:10 Eye Response: spontaneous(4). Verbal Response: confused(4). Motor Response: obeys rr5 commands(6). Total: 14. Procedures: 19:38 Central Line: the site was prepped with in sterile fashion, chlorhexidine, a triple kb lumen catheter was inserted, in the right femoral vein, in 1 attempts. placement was verified, by blood return, the site was dressed with Tegaderm, using sterile technique, the patient tolerated the procedure, well. MDM: 17:11 Patient medically screened. rn 18:59 Transition of care: After a detail discussion of the patient's case, care is rn transferred to Akira Gutierrez MD. 20:51 Differential Diagnosis: electrolyte abnormality, intracranial bleed, pneumonia, sepsis, gs UTI. Data reviewed: vital signs, nurses notes. Response to treatment: the patient's symptoms have markedly improved after treatment, and as a result, I will admit patient. 20:59 ED course: pt seen and examined more stable will try to off pressors plan icu admit. gs 05/18 17:12 Order name: Basic Metabolic Panel; Complete Time: 18:32 rn 05/18 17:12 Order name: Blood Culture Adult (2) rn 05/18 17:12 Order name: CBC with Diff; Complete Time: 18:32 rn 05/18 17:12 Order name: CPK; Complete Time: 18:32 rn 05/18 17:12 Order name: Lactate; Complete Time: 18:32 rn 05/18 17:12 Order name: Procalcitonin; Complete Time: 20:00 rn 05/18 17:12 Order name: Troponin (emerg Dept Use Only); Complete Time: 18:32 rn 05/18 17:12 Order name: Urine Microscopic Only; Complete Time: 07:11 rn 05/18 17:12 Order name: Flu; Complete Time: 07:11 rn 05/18 19:50 Order name: Urine Dipstick--Ancillary (enter results); Complete Time: 07:11 mw2 05/18 20:14 Order name: Urine Culture; Complete Time: 07:11 EDMS 05/18 21:52 Order name: CBC with Automated Diff EDMS 05/18 21:52 Order name: CBC with Automated Diff; Complete Time: 07:11 EDMS 05/18 21:52 Order name: Comprehensive Metabolic Panel EDCA 05/18 17:12 Order name: Chest Single View XRAY; Complete Time: 18:32 rn 05/18 17:12 Order name: CT Head Brain wo Cont; Complete Time: 20:00 rn 05/18 18:06 Order name: EKG Electrocardiogram EDMS 05/18 21:52 Order name: CONS Infection Control Cons EDMS 05/18 21:52 Order name: CONS Pharmacy Consult EDMS 05/18 21:52 Order name: NPO EDMS 05/18 21:52 Order name: Echo with Doppler EDMS 05/18 21:52 Order name: Comprehensive Metabolic Panel; Complete Time: 07:11 EDMS 05/18 21:52 Order name: Lactate EDMS 05/18 21:52 Order name: Lactate EDMS 05/18 23:22 Order name: Lactate Sepsis 2 HR Follow-up; Complete Time: 07:11 EDMS 05/18 17:12 Order name: Accucheck; Complete Time: 18:01 rn 05/18 17:12 Order name: Cardiac monitoring; Complete Time: 18:01 rn 05/18 17:12 Order name: EKG - Nurse/Tech; Complete Time: 18:01 rn 05/18 17:12 Order name: IV Saline Lock - Large Bore; Complete Time: 19:15 rn 05/18 17:12 Order name: Labs collected and sent; Complete Time: 19:15 rn 05/18 17:12 Order name: O2 Per Protocol; Complete Time: 18:01 rn 05/18 17:12 Order name: O2 Sat Monitoring; Complete Time: 18: rn 05/18 17:12 Order name: Urine Dipstick-Ancillary (obtain specimen); Complete Time: 20:51 rn 05/18 19:15 Order name: Mcadams; Complete Time: 19:16 sg Administered Medications: 17:42 Drug: NS 0.9% 1000 ml Route: IV; Rate: 1000 ml; Site: right hand; iw 18:28 Follow up: Response: No adverse reaction; IV Status: Completed infusion; IV Intake: sg 990ml 18:40 Drug: NS 0.9% 1000 ml Route: IV; Rate: 1000 ml; Site: right femoral; sg 19:30 Follow up: Response: No adverse reaction; IV Status: Completed infusion; IV Intake: rr5 1000ml 18:40 Drug: Norepinephrine (4 mg/250 mL D5W) 4 mcg/min Route: IV; Rate: calculated rate; sg Site: right femoral; 19:50 Follow up: Rate change 2.5 mcg/kg/min; IV Status: Infusion continued rr5 21:35 Follow up: IV Status: Order to discontinue infusion; Bp 159/94mmHg ED provider informed rr5 21:00 Drug: Cefepime 1 grams Route: IVPB; Rate: 200 ml/hr; Infused Over: 30 mins; Site: right rr5 femoral; 21:30 Follow up: Response: No adverse reaction; IV Status: Completed infusion; IV Intake: rr5 100ml 21:00 Drug: NS 0.9% 1000 ml Route: IV; Rate: 1 bolus; Site: right femoral; rr5 22:00 Follow up: Response: No adverse reaction; IV Status: Completed infusion; IV Intake: rr5 1000ml Point of Care Testing: Blood Glucose: 17:40 Blood Glucose: 82 mg/dL; iw Ranges: Critical Glucose Levels:Adult <50 mg/dl or >400 mg/dl <40 mg/dl or >180 mg/dl Disposition: 20:59 Critical Care:. Disposition: 05/18/18 21:02 Hospitalization ordered by Najma Khan for Inpatient Admission. Preliminary diagnosis is Severe sepsis without septic shock. - Bed requested for Telemetry/MedSurg (Inpatient). - Status is Inpatient Admission. rr5 - Condition is Stable. - Problem is new. - Symptoms have improved. UTI on Admission? Yes Critical care time excluding procedures: 20:59 Critical care time: Bedside Care: 10 minutes, Consultation: 10 minutes, Family gs Intervention: 10 minutes. Total time: 30 minutes Addendum: 05/22/2018 07:12 Co-signature as Attending Physician, Jesu Haro MD. r n Signatures: Dispatcher [employer] EDTesha Ruby, JOI-Yahaira BATH MIXER-Gema Curtis RN RENETTA Pablo Munoz RN RN sg Felecia King RN RN Jesu Haro MD MD rn Starr, Gregory, MD MD gs Roque, Raymond, RN RN rr5 Corrections: (The following items were deleted from the chart) 05/18 22:27 21:02 Hospitalization Ordered by Najma Khan MD for Inpatient Admission. Preliminary mw diagnosis is Severe sepsis without septic shock. Bed requested for Telemetry/MedSurg (Inpatient). Status is Inpatient Admission. Condition is Stable. Problem is new. Symptoms have improved. UTI on Admission? Yes. 23:36 22:27 05/18/2018 21:02 Hospitalization Ordered by Najma Khan MD for Inpatient rr5 Admission. Preliminary diagnosis is Severe sepsis without septic shock. Bed requested for Telemetry/MedSurg (Inpatient). Status is Inpatient Admission. Condition is Stable. Problem is new. Symptoms have improved. UTI on Admission? Yes. mw
[2018-05-18] MEDS ORDERED: NA CHLORIDE 0.9% 1,000 ML ONE (21:07)
[2018-05-18] MEDS ORDERED: CEFEPIME 1 GM/100 ML BAG IV ONE (21:07)
[2018-05-18] MEDS ORDERED: MORPHINE 2 MG/ML SYR IV PRN (21:45)
[2018-05-18] MEDS ORDERED: ACETAMINOPHEN 500 MG TAB PO PRN (21:45)
[2018-05-18] MEDS ORDERED: ONDANSETRON 4 MG/2 ML VIAL IV PRN (21:45)
[2018-05-18] MEDS ORDERED: NA CHLORIDE 0.9% 1,000 ML IV SCH ×2 (22:00)
[2018-05-18 23:54] VITALS: BMI 17.8
[2018-05-19] MEDS: NA CHLORIDE 0.9% 1,000 ML IV SCH ×4 (00:09→19:44)
[2018-05-19 07:31] LABS: Albumin 2.6 g/dL (3.4-5.0); Bilirubin Total 0.3 mg/dL (0.2-1.0); Potassium 5.2 mmol/L (3.5-5.1); Protein, Total 6.6 g/dL (6.4-8.2)
[2018-05-19 07:37] LABS: Absolute Lymphocytes (CBC) 1.4 K/uL (0.7-4.9); Absolute Monocytes 0.7 K/uL (0.1-1.3); Absolute Neutrophil 6.2 K/uL (1.8-8.0); Basophils % 0.1 % (0-1.3); Eosinophils % 0.2 % (0-4.4); Hematocrit 34.4 % (39.6-49.0); Lymphocytes % 17.2 % (15.3-44.8); MPV 9.9 fL (7.6-11.3); Monocytes % 8.9 % (3.3-12.3); RBC Red Blood Cell Count 3.89 M/uL (4.33-5.43)
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
[2018-05-19] MEDS ORDERED: MORPHINE 4 MG/ML SYR IV PRN (07:50)
[2018-05-19] MEDS: CEFTRIAXONE/SWI 1gm 1 GM/10 ML SYR IV SCH (09:00)
--- NOTE | 2018-05-19 18:24 | P.PN ---
Subjective Date of Service: 05/19/18 Chief Complaint: Altered mental status/UTI/sepsis/acute kidney injury Subjective: No new changes Physical Examination - Vital Signs Temperature: 98.9 F Blood Pressure: 141/94 Pulse: 86 Respirations: 18 Pulse Ox (%): 99 - Physical Exam General: In no apparent distress, Confused HEENT: Atraumatic, PERRLA, EOMI Neck: Supple, JVD not distended Respiratory: Clear to auscultation bilaterally, Normal air movement Cardiovascular: Regular rate/rhythm, Normal S1 S2 Gastrointestinal: Normal bowel sounds, No tenderness Musculoskeletal: No tenderness Integumentary: No rashes Neurological: Normal speech, Normal tone, Normal affect Lymphatics: No axilla or inguinal lymphadenopathy - Studies Microbiology Data (last 24 hrs): 05/18/18 19:30 Nasopharnyx Influenza Type A Antigen Screen - Final 05/18/18 19:30 Nasopharnyx Influenza Type B Antigen Screen - Final Assessment And Plan - Plan - Problems (Diagnosis) (1) Sepsis Current Visit: Yes Status: Acute (2) Altered mental status Current Visit: Yes Status: Acute (3) History of CVA (cerebrovascular accident) Current Visit: Yes Status: Acute (4) Toxic encephalopathy Current Visit: Yes Status: Acute (5) Acute kidney injury Current Visit: Yes Status: Acute (6) Acute diastolic heart failure Onset Date: 08/04/17 Current Visit: No Status: Acute (7) COPD (chronic obstructive pulmonary disease) Onset Date: 08/04/17 Current Visit: No Status: Acute (8) Chronic kidney disease (CKD), stage III (moderate) Onset Date: 08/04/17 Current Visit: No Status: Acute (9) Type 2 diabetes mellitus without complications Onset Date: 08/04/17 Current Visit: No Status: Acute (10) UTI (urinary tract infection) Onset Date: 04/27/17 Current Visit: No Status: Acute - Plan Plan: 1. IV hydration 2. IV antibiotics 3. Monitor renal function 4. Monitor neurologic status closely 5. Keep central line clean 6. GI and DVT prophylaxis Discharge Plan: Care Home
[2018-05-20] MEDS ORDERED: D50W 25 GM/50 ML SYRINGE IV ONE ×4 (07:47→21:55)
[2018-05-20] MEDS: D5 0.45 NS 1,000 ML IV SCH ×4 (07:52→21:05)
[2018-05-20] MEDS: CEFTRIAXONE/SWI 1gm 1 GM/10 ML SYR IV SCH (09:28)
[2018-05-20] MEDS: FAMOTIDINE 20 MG TAB PO SCH (11:00)
[2018-05-20] MEDS ORDERED: NITROGLYCERIN 0.4 MG/TAB SL PRN (12:23)
--- NOTE | 2018-05-20 12:24 | P.PN ---
Subjective Date of Service: 05/20/18 Chief Complaint: Altered mental status/UTI/sepsis/acute kidney injury Subjective: Improving Patient seen and examined at bedside. No family at bedside. Chart reviewed and case discussed with nursing staff. Overnight/earlier this morning, patient's blood sugar dropped into the 20s. Mentation lenz though, he has more alert and awake. Responding more, and having a more appropriate conversation Review of Systems 10-point ROS is otherwise unremarkable Physical Examination - Vital Signs Temperature: 98 F Blood Pressure: 147/93 Pulse: 81 Respirations: 14 Pulse Ox (%): 98 - Physical Exam General: Alert, In no apparent distress, Oriented x1 HEENT: Atraumatic, PERRLA, EOMI Neck: Supple, JVD not distended Respiratory: Clear to auscultation bilaterally, Normal air movement Cardiovascular: Regular rate/rhythm, Normal S1 S2 Gastrointestinal: Normal bowel sounds, No tenderness Musculoskeletal: No tenderness Integumentary: No rashes Neurological: Normal speech, Normal tone, Normal affect Assessment And Plan - Current Problems (Diagnosis) (1) Sepsis Current Visit: Yes Status: Acute (2) UTI (urinary tract infection) Onset Date: 04/27/17 Current Visit: No Status: Acute Qualifiers: Urinary tract infection type: site unspecified Hematuria presence: without hematuria Qualified Code(s): N39.0 - Urinary tract infection, site not specified (3) Hypoglycemia Current Visit: Yes Status: Acute (4) Altered mental status Current Visit: Yes Status: Acute (5) Toxic encephalopathy Current Visit: Yes Status: Acute (6) History of CVA (cerebrovascular accident) Current Visit: Yes Status: Acute (7) Hypertension Onset Date: 04/27/17 Current Visit: No Status: Acute (8) Type 2 diabetes mellitus without complications Onset Date: 08/04/17 Current Visit: No Status: Acute - Plan This is an 82-year-old male with: Sepsis improving Continue IV antibiotics Continue fluids Hemodynamically stable Blood cultures pending Source likely to be from urine Altered mental status. Toxic encephalopathy Improving. Likely a combination of infectious and dehydration Continue IV fluids and continue IV antibiotics Urinary tract infection Continue IV Rocephin, day number 3 Gram stain with gram-negative rods, cultures pending. Hypoglycemic episode Blood sugars in 20s this morning, given 1 amp of , fluids switched from normal saline to D5 half-normal saline. Blood sugars improved Continue monitoring Hypernatremia Hyperkalemia IV fluids switched to D5 half Continue to monitor via a.m. labs Diabetes mellitus, type 2 History of CVA At baseline Chronic kidney disease, stage III Creatinine seems to be at baseline Malnutrition Albumin of 2.6 DVT prophylaxis: Lovenox GI prophylaxis: Protonix Diet: Diabetic Disposition: Pending symptomatic improvement. Discharge Plan: Care Home
[2018-05-20 12:34] LABS: Absolute Lymphocytes (CBC) 1.7 K/uL (0.7-4.9); Absolute Monocytes 0.6 K/uL (0.1-1.3); Albumin 2.4 g/dL (3.4-5.0); Basophils % 0.6 % (0-1.3); Bilirubin Total 0.3 mg/dL (0.2-1.0); Eosinophils % 1.3 % (0-4.4); Hematocrit 33.3 % (39.6-49.0); Lymphocytes % 26.8 % (15.3-44.8); MPV 10.1 fL (7.6-11.3); Monocytes % 9.1 % (3.3-12.3); Potassium 4.2 mmol/L (3.5-5.1); Protein, Total 6.4 g/dL (6.4-8.2); RBC Red Blood Cell Count 3.78 M/uL (4.33-5.43)
[2018-05-20] MEDS: ENOXAPARIN 30 MG/0.3 ML SQ SCH (16:04)
[2018-05-20] MEDS: ISOSORBIDE MONO SR 30 MG TAB PO SCH (16:50)
[2018-05-20] MEDS: LISINOPRIL 10 MG TAB PO SCH (16:51)
[2018-05-20] MEDS: MEMANTINE HCL 10 MG TABLET PO SCH ×2 (21:00→21:05)
[2018-05-20] MEDS: DONEPEZIL HCL 5 MG TAB PO SCH ×2 (21:00→21:04)
[2018-05-20] MEDS: POLYVINYL ALCOHOL 1.4% 15 ML OPTH SCH ×2 (21:00→21:05)
[2018-05-20] MEDS: ATORVASTATIN 80 MG TAB PO SCH ×2 (21:00→21:04)
[2018-05-20] MEDS: DIVALPROEX NA 125 MG CAP PO SCH ×2 (21:00→21:04)
[2018-05-20] MEDS: CARVEDILOL 6.25 MG TAB PO SCH (21:05)
[2018-05-20] MEDS ORDERED: D50W 25 GM/50 ML SYRINGE IV PRN (21:27)
[2018-05-21 06:08] LABS: Albumin 2.6 g/dL (3.4-5.0); Bilirubin Total 0.4 mg/dL (0.2-1.0); Potassium 4.5 mmol/L (3.5-5.1); Protein, Total 6.9 g/dL (6.4-8.2)
[2018-05-21 06:27] LABS: Absolute Lymphocytes (CBC) 1.9 K/uL (0.7-4.9); Absolute Monocytes 0.5 K/uL (0.1-1.3); Absolute Neutrophil 2.8 K/uL (1.8-8.0); Basophils % 0.4 % (0-1.3); Eosinophils % 1.9 % (0-4.4); Hematocrit 34.8 % (39.6-49.0); MPV 10.8 fL (7.6-11.3); RBC Red Blood Cell Count 3.96 M/uL (4.33-5.43)
[2018-05-21] MEDS: DULOXETINE 30 MG CAP PO SCH (07:47)
[2018-05-21] MEDS: CLOPIDOGREL 75 MG TABLET PO SCH (07:47)
[2018-05-21] MEDS: CARVEDILOL 6.25 MG TAB PO SCH ×3 (07:47→20:27)
[2018-05-21] MEDS: MEMANTINE HCL 10 MG TABLET PO SCH ×2 (07:47→20:26)
[2018-05-21] MEDS: SPIRONOLACTONE 25 MG TABLET PO SCH (07:48)
[2018-05-21] MEDS: ASPIRIN EC 81 MG TAB PO SCH (07:49)
[2018-05-21] MEDS: LISINOPRIL 10 MG TAB PO SCH (07:49)
[2018-05-21] MEDS: ISOSORBIDE MONO SR 30 MG TAB PO SCH (07:49)
[2018-05-21] MEDS: FAMOTIDINE 20 MG TAB PO SCH (07:49)
[2018-05-21] MEDS: CEFTRIAXONE/SWI 1gm 1 GM/10 ML SYR IV SCH (07:50)
[2018-05-21] MEDS: DIVALPROEX NA 125 MG CAP PO SCH ×2 (09:03→20:26)
[2018-05-21] MEDS: POLYVINYL ALCOHOL 1.4% 15 ML OPTH SCH ×2 (09:03→20:25)
[2018-05-21] MEDS: CEFOXITIN/SWI 2gm 2 GM/20 ML SYR IV SCH ×2 (11:35→17:01)
--- NOTE | 2018-05-21 12:04 | ECHO ---
HEIGHT: 5 ft 9 in WEIGHT: 120 lb 8 oz DATE OF STUDY: 05/21/[address]: Najma Khan MD 2-DIMENSIONAL: YES M.MODE: YES DOPPLER: YES COLOR FLOW: YES TDS: NO PORTABLE: NO DEFINITY: NO BUBBLE STUDY: NO DIAGNOSIS: HYPOTENSION CARDIAC HISTORY: CATHERIZATION: YES SURGERY: NO PROSTHETIC VALVE: NO PACEMAKER: NO MEASUREMENTS (cm) DIASTOLIC (NORMALS) SYSTOLIC (NORMALS) IVSd 1.1 (0.6-1.2) LA Diam (1.9-4.0) LVEF 36% LVIDd 4.3 (3.5-5.7) LVIDs 3.6 (2.0-3.5) %FS 17% LVPWd 1.1 (0.6-1.2) Ao Diam 2.9 (2.0-3.7) 2 DIMENSIONAL ASSESSMENT: RIGHT ATRIUM: NORMAL LEFT ATRIUM: NORMAL RIGHT VENTRICLE: NORMAL LEFT VENTRICLE: NORMAL SIZE TRICUSPID VALVE: NORMAL MITRAL VALVE: NORMAL PULMONIC VALVE: NORMAL AORTIC VALVE: NORMAL PERICARDIAL EFFUSION: NONE AORTIC ROOT: NORMAL LEFT VENTRICULAR WALL MOTION: MODERATE GLOBAL HYPOKINESIS. DOPPLER/COLOR FLOW: MILD TRICUSPID REGURGITATION NORMAL RIGHT VENTRICULAR SYSTOLIC PRESSURE. COMMENTS: MODERATE GLOBAL HYPOKINESIS. EJECTION FRACTION 35-40%. NO EFFUSION. DECREASED LEFT VENTRICULAR COMPLIANCE. TECHNOLOGIST: STEVEN ROJO
[2018-05-21] MEDS: D5 0.45 NS 1,000 ML IV SCH ×2 (13:23→20:17)
--- NOTE | 2018-05-21 16:42 | P.PN ---
Subjective Date of Service: 05/21/18 Chief Complaint: Altered mental status/UTI/sepsis/acute kidney injury Subjective: Improving Patient seen and examined at bedside. No family at bedside. Chart reviewed and case discussed with nursing staff. Blood sugars continue to drop, responds to glucagon and juice. Mentation lenz though, he has more alert and awake. Responding more, and having a more appropriate conversation Review of Systems 10-point ROS is otherwise unremarkable Physical Examination - Vital Signs Temperature: 97.2 F Blood Pressure: 137/62 Pulse: 52 Respirations: 18 Pulse Ox (%): 95 - Physical Exam General: In no apparent distress, Cachectic, Confused (but more alert), Other ( Ill appearing) HEENT: Atraumatic, PERRLA, EOMI Neck: Supple, JVD not distended Respiratory: Clear to auscultation bilaterally, Normal air movement Cardiovascular: Regular rate/rhythm, Normal S1 S2 Gastrointestinal: Normal bowel sounds, No tenderness Integumentary: No rashes - Studies Microbiology Data (last 24 hrs): 05/18/18 19:45 Clean Catch Urine Zephyr Count - Final >100,000 CFU/ML. 05/18/18 19:45 Clean Catch Urine - Final Escherichia Coli Assessment And Plan - Current Problems (Diagnosis) (1) Sepsis Onset Date: 05/21/18 Current Visit: Yes Status: Acute (2) UTI (urinary tract infection) Onset Date: 04/27/17 Current Visit: No Status: Acute Qualifiers: Urinary tract infection type: site unspecified Hematuria presence: without hematuria Qualified Code(s): N39.0 - Urinary tract infection, site not specified (3) Hypoglycemia Onset Date: 05/21/18 Current Visit: Yes Status: Acute (4) Altered mental status Onset Date: 05/21/18 Current Visit: Yes Status: Acute (5) Toxic encephalopathy Onset Date: 05/21/18 Current Visit: Yes Status: Acute (6) History of CVA (cerebrovascular accident) Current Visit: Yes Status: Acute (7) Hypertension Onset Date: 04/27/17 Current Visit: No Status: Acute (8) Type 2 diabetes mellitus without complications Onset Date: 08/04/17 Current Visit: No Status: Acute - Plan This is an 82-year-old male with: Sepsis improving Continue IV antibiotics. Antibiotics adjusted to urine cultures Continue fluids Hemodynamically stable Blood cultures NGTD Source likely to be from urine Altered mental status. Toxic encephalopathy Improving. Likely a combination of infectious and dehydration Continue IV fluids and continue IV antibiotics Urinary tract infection IV Rocephin, discontinued after day number 3. Start Cefoxitin, Day #1 Urine culture positive for E.coli. Hypoglycemic episode Continues to have hypoglycemic episodes, likely 2/2 infection. Patient is already on D5 1/2 NS, will continue to monitor Hypernatremia Resolved Hyperkalemia Resolved Continue D5 1/2 NS Continue to monitor via a.m. labs Diabetes mellitus, type 2 Hold insulin at this time for hypoglycemia History of CVA At baseline Chronic kidney disease, stage III Creatinine seems to be at baseline Malnutrition Albumin of 2.6 DVT prophylaxis: Lovenox GI prophylaxis: Protonix Diet: Diabetic Disposition: Pending symptomatic improvement. Discharge Plan: Jail
[2018-05-21] MEDS: ENOXAPARIN 30 MG/0.3 ML SQ SCH (17:01)
[2018-05-21] MEDS: GLUCERNA SHAKE 237 ML CAN PO SCH (20:25)
[2018-05-21] MEDS: DONEPEZIL HCL 5 MG TAB PO SCH (20:26)
[2018-05-21] MEDS: ATORVASTATIN 80 MG TAB PO SCH (20:27)
[2018-05-22] MEDS: CEFOXITIN/SWI 2gm 2 GM/20 ML SYR IV SCH (00:04)
[2018-05-22 05:02] LABS: Absolute Lymphocytes (CBC) 1.9 K/uL (0.7-4.9); Absolute Monocytes 0.6 K/uL (0.1-1.3); Basophils % 0.5 % (0-1.3); Eosinophils % 3.3 % (0-4.4); Hematocrit 31.7 % (39.6-49.0); Lymphocytes % 40.2 % (15.3-44.8); MPV 10.3 fL (7.6-11.3); Monocytes % 12.7 % (3.3-12.3); RBC Red Blood Cell Count 3.63 M/uL (4.33-5.43)
[2018-05-22 05:17] LABS: Albumin 2.2 g/dL (3.4-5.0); Bilirubin Total 0.2 mg/dL (0.2-1.0); Potassium 4.5 mmol/L (3.5-5.1)
[2018-05-22] MEDS: D5 0.45 NS 1,000 ML IV SCH ×2 (06:22→18:08)
[2018-05-22] MEDS ORDERED: Meropenem 1000 MG/VIAL IV SCH (09:00)
[2018-05-22] MEDS: POLYVINYL ALCOHOL 1.4% 15 ML OPTH SCH ×2 (09:18→22:47)
[2018-05-22] MEDS: Meropenem 1,000 MG in NA CHLORIDE 0.9% 100 ML IV SCH ×2 (09:18→22:49)
[2018-05-22] MEDS: DIVALPROEX NA 125 MG CAP PO SCH ×2 (09:18→22:31)
[2018-05-22] MEDS: SPIRONOLACTONE 25 MG TABLET PO SCH (09:19)
[2018-05-22] MEDS: CLOPIDOGREL 75 MG TABLET PO SCH (09:19)
[2018-05-22] MEDS: FAMOTIDINE 20 MG TAB PO SCH (09:19)
[2018-05-22] MEDS: DULOXETINE 30 MG CAP PO SCH (09:19)
[2018-05-22] MEDS: LISINOPRIL 10 MG TAB PO SCH (09:19)
[2018-05-22] MEDS: ASPIRIN EC 81 MG TAB PO SCH (09:19)
[2018-05-22] MEDS: CARVEDILOL 6.25 MG TAB PO SCH ×2 (09:20→22:30)
[2018-05-22] MEDS: ISOSORBIDE MONO SR 30 MG TAB PO SCH (09:20)
[2018-05-22] MEDS: MEMANTINE HCL 10 MG TABLET PO SCH ×2 (09:20→22:30)
[2018-05-22] MEDS: GLUCERNA SHAKE 237 ML CAN PO SCH ×2 (09:20→21:00)
--- NOTE | 2018-05-22 15:11 | PN ---
Date of Progress Note: 05/22/2018 Subjective: The patient is seen and examined, chart reviewed and case discussed with RN. The patient denies any specific complaints, was found to have ESBL E coli in the urine today and will be placed on contact isolation. Code status full. Medications: List reviewed. Physical Examination: Vital Signs: Temperature 98, heart rate 58, blood pressure 141/72, respirations 22, and O2 of 98% on room air. General: Awake, alert, and oriented x3, ill-appearing elderly male, cachectic, BMI 17.8. CV: S1 and S2. Regular rate and rhythm. Peripheral pulses present. Respiratory: Moving air well bilaterally. No wheezing or stridor. No use of accessory muscles. Gastrointestinal: Abdomen is soft, nontender, and nondistended. Positive bowel sounds. Extremities: No clubbing, cyanosis, or edema. Neurologic: Cranial nerves 2 through 12 intact grossly. No focal neurological deficit. Speech is normal. Laboratory Data: Sodium 145, potassium 4.5, chloride 112, CO2 of 26, BUN 12, creatinine 1.4, glucose 92, calcium 8, and albumin 2.2. WBC 4.6, H and H of 10.4 and 31.7, platelets 156. Microbiology; urine culture shows ESBL producing E coli. Blood cultures, no growth to date. Assessment And Plan: An 82-year-old male with, 1. Sepsis, improving. WBC count has improved. We will continue antibiotics. Urine culture shows extended spectrum beta lactamase Escherichia coli. We will switch to meropenem. Continue IV fluids. Blood cultures are negative. Source of sepsis likely urinary tract infection. 2. Toxic encephalopathy due to sepsis, improved. The patient seems to be back to baseline. 3. Acute cystitis without hematuria. We will continue IV antibiotics, switched over to meropenem for extended spectrum beta lactamase producing Escherichia coli. The patient will need PICC line and meropenem for a minimum of 2 weeks and repeat urine cultures once treatment is completed. 4. Single hypoglycemic episode, improved with D5 half NS. 5. Hypernatremia, corrected. 6. Hyperkalemia, corrected. We will continue to monitor. 7. Diabetes mellitus type 2, insulin requiring with hypoglycemia. We will monitor sliding scale insulin. 8. History of cerebrovascular accident. 9. Essential hypertension, stable. 10. Chronic kidney disease stage 3. Creatinine has improved, back to baseline. 11. Moderate protein-calorie malnutrition. Albumin 2.6. Plan: The patient will likely need a return to [facility] facility for long-term IV antibiotics. GI and DVT prophylaxis addressed. JOHN Voice ID: [id number] Report ID: [id number] MTDD
[2018-05-22] MEDS: ENOXAPARIN 30 MG/0.3 ML SQ SCH (16:16)
[2018-05-22] MEDS: ATORVASTATIN 80 MG TAB PO SCH (22:46)
[2018-05-22] MEDS: DONEPEZIL HCL 5 MG TAB PO SCH (22:47)
[2018-05-23 05:39] LABS: Absolute Lymphocytes (CBC) 1.5 K/uL (0.7-4.9); Absolute Monocytes 0.4 K/uL (0.1-1.3); Absolute Neutrophil 1.4 K/uL (1.8-8.0); Basophils % 0.9 % (0-1.3); Eosinophils % 2.9 % (0-4.4); Hematocrit 32.9 % (39.6-49.0); Lymphocytes % 43.4 % (15.3-44.8); MPV 10.8 fL (7.6-11.3); Monocytes % 12.4 % (3.3-12.3); RBC Red Blood Cell Count 3.73 M/uL (4.33-5.43)
[2018-05-23 05:48] LABS: Albumin 2.3 g/dL (3.4-5.0); Bilirubin Total 0.2 mg/dL (0.2-1.0); Potassium 4.5 mmol/L (3.5-5.1); Protein, Total 6.1 g/dL (6.4-8.2)
[2018-05-23] MEDS: D5 0.45 NS 1,000 ML IV SCH ×2 (06:00→09:31)
[2018-05-23] MEDS: GLUCERNA SHAKE 237 ML CAN PO SCH ×2 (09:30→21:00)
[2018-05-23] MEDS: Meropenem 1,000 MG in NA CHLORIDE 0.9% 100 ML IV SCH ×2 (09:31→22:00)
[2018-05-23] MEDS: CLOPIDOGREL 75 MG TABLET PO SCH (09:32)
[2018-05-23] MEDS: ASPIRIN EC 81 MG TAB PO SCH (09:32)
[2018-05-23] MEDS: SPIRONOLACTONE 25 MG TABLET PO SCH (09:32)
[2018-05-23] MEDS: LISINOPRIL 10 MG TAB PO SCH (09:32)
[2018-05-23] MEDS: FAMOTIDINE 20 MG TAB PO SCH (09:33)
[2018-05-23] MEDS: ISOSORBIDE MONO SR 30 MG TAB PO SCH (09:33)
[2018-05-23] MEDS: MEMANTINE HCL 10 MG TABLET PO SCH ×2 (09:33→22:00)
[2018-05-23] MEDS: DULOXETINE 30 MG CAP PO SCH (09:33)
[2018-05-23] MEDS: CARVEDILOL 6.25 MG TAB PO SCH ×2 (09:33→22:00)
[2018-05-23] MEDS: POLYVINYL ALCOHOL 1.4% 15 ML OPTH SCH ×2 (09:34→21:00)
[2018-05-23] MEDS: DIVALPROEX NA 125 MG CAP PO SCH ×2 (12:14→22:01)
--- NOTE | 2018-05-23 13:10 | PN ---
Date of Progress Note: 05/23/2018 Subjective: The patient is seen and examined. Chart reviewed, and case discussed with RN. The mario ent denies any complaints overnight. Medications: List reviewed. Physical Examination: Vital Signs: Temperature 97.4, heart rate 56, blood pressure 172/93, respirations 20, O2 of 100% on room air. General: Awake, alert, oriented x3. An elderly male, frail, cachectic, BMI 17. CV: S1, S2. Regular rate and rhythm. Peripheral pulses present. Respiratory: Moving air well bilaterally. No wheezing. Gastrointestinal: Abdomen is soft, nontender, nondistended. Positive bowel sounds. Extremities: No clubbing, cyanosis, or edema. Skin: The patient does have some chronic wounds on bilateral lower extremities. No signs of erythem a. Laboratory Data: Sodium 144, potassium 4.5, chloride 111, CO2 of 27, BUN 11, creatinine 1.09, glucos e 114, calcium 8.1, albumin 2.3. WBC 3.5, H and H 10.6 and 32.9, platelets 178, neutrophils 40%. Ur ine culture growing E coli, ESBL producing. Blood cultures, negative to date. Assessment: An 82-year-old male with: 1.Sepsis, improved. White count trending down. Continue antibiotics. Urine culture showing extend ed-spectrum beta-lactamase Escherichia coli. Blood cultures are negative. 2.Toxic encephalopathy due to sepsis, improved, now back to baseline. 3.Acute cystitis without hematuria secondary to extended-spectrum beta-lactamase Escherichia coli. Continue meropenem. Obtain PICC line. We will need a minimum of 2 weeks of treatment. 4.Hypoglycemic episode, resolved. 5.Hypernatremia, corrected. 6.Hyperkalemia, corrected. We will continue to monitor. 7.Diabetes mellitus type 2, insulin requiring, with hypoglycemia. We will continue to monitor slidi ng scale insulin. 8.History of cerebrovascular accident. 9.Essential hypertension, stable. 10.Chronic kidney disease stage 3. Creatinine improved. We will continue to monitor. Avoid nephro toxins. 11.Moderate protein-calorie malnutrition. Albumin is 2.6. 12.Gastrointestinal and deep venous thrombosis prophylaxis addressed. Plan: Discharge to long term facility once PICC line is obtained. /DIAMOND Voice ID: [id number] Report ID: [id number]
[2018-05-23] MEDS: ENOXAPARIN 40 MG/0.4 ML SQ SCH (16:13)
[2018-05-23] MEDS: MEDIHONEY 44 ML TOPICAL TUBE TOP SCH (22:00)
[2018-05-23] MEDS: DONEPEZIL HCL 5 MG TAB PO SCH (22:00)
[2018-05-23] MEDS: ATORVASTATIN 80 MG TAB PO SCH (22:01)
[2018-05-24] MEDS: D5 0.45 NS 1,000 ML IV SCH ×2 (02:00→12:00)
[2018-05-24 06:30] LABS: BUN Blood Urea Nitrogen 13 mg/dL (7-18); Bicarbonate 29 mmol/L (21-32); Glucose Level 96 mg/dL (74-106); Potassium 4.9 mmol/L (3.5-5.1); Sodium Level 143 mmol/L (136-145)
[2018-05-24 06:34] LABS: Absolute Lymphocytes (CBC) 2.1 K/uL (0.7-4.9); Absolute Monocytes 0.5 K/uL (0.1-1.3); Absolute Neutrophil 1.7 K/uL (1.8-8.0); Basophils % 1.4 % (0-1.3); Hematocrit 31.6 % (39.6-49.0); Lymphocytes % 47.2 % (15.3-44.8); MPV 10.1 fL (7.6-11.3); Monocytes % 10.8 % (3.3-12.3); RBC Red Blood Cell Count 3.61 M/uL (4.33-5.43)
--- NOTE | 2018-05-24 06:36 | RAD REPORT ---
EXAM DESCRIPTION: RAD - Chest Single View - 05/24/2018 5:17 am CLINICAL HISTORY: PICC line placement A preliminary report was provided at the time of the study and reviewed prior to final report. COMPARISON: May 18 FINDINGS: Portable chest was obtained following placement of a right upper extremity PICC line. The catheter tip is in the mid SVC.
[2018-05-24 08:02] LABS: Anisocytosis 2+; Blood Morphology Comment NOTED (NOT SEEN); Platelet Estimate ADEQ
[2018-05-24 08:03] LABS: Burr Cells 2+; Poikilocytosis 1+; Target Cells 2+
[2018-05-24 08:59] VITALS: O2SAT 99
[2018-05-24] MEDS: GLUCERNA SHAKE 237 ML CAN PO SCH (09:00)
[2018-05-24] MEDS: MEDIHONEY 44 ML TOPICAL TUBE TOP SCH (09:00)
[2018-05-24] MEDS: POLYVINYL ALCOHOL 1.4% 15 ML OPTH SCH (09:00)
[2018-05-24] MEDS: Meropenem 1,000 MG in NA CHLORIDE 0.9% 100 ML IV SCH (09:30)
[2018-05-24] MEDS: MEMANTINE HCL 10 MG TABLET PO SCH (09:31)
[2018-05-24] MEDS: FAMOTIDINE 20 MG TAB PO SCH (09:31)
[2018-05-24] MEDS: SPIRONOLACTONE 25 MG TABLET PO SCH (09:31)
[2018-05-24] MEDS: ISOSORBIDE MONO SR 30 MG TAB PO SCH (09:31)
[2018-05-24] MEDS: ASPIRIN EC 81 MG TAB PO SCH (09:31)
[2018-05-24] MEDS: CARVEDILOL 6.25 MG TAB PO SCH (09:31)
[2018-05-24] MEDS: DULOXETINE 30 MG CAP PO SCH (09:31)
[2018-05-24] MEDS: LISINOPRIL 10 MG TAB PO SCH (09:31)
[2018-05-24] MEDS: CLOPIDOGREL 75 MG TABLET PO SCH (09:32)
[2018-05-24] MEDS: DIVALPROEX NA 125 MG CAP PO SCH (09:32)
[2018-05-24 12:17] VITALS: TEMP 98.1
[2018-05-24] MEDS: ENOXAPARIN 40 MG/0.4 ML SQ SCH (16:42)
[2018-05-24 17:27] VITALS: BP 139/71
--- NOTE | 2018-05-25 13:02 | DS ---
Date of Discharge: 05/24/2018 Admitting Diagnoses: 1.Sepsis. 2.Acute metabolic encephalopathy. 3.History of cerebrovascular accident. 4.Acute kidney injury. 5.Acute diastolic heart failure. 6.Chronic obstructive pulmonary disease. 7.Chronic kidney disease stage 3. 8.Diabetes mellitus type 2 without complications. 9.Urinary tract infection. Discharge Diagnoses: 1.Sepsis, improved secondary to extended-spectrum beta-lactamase Escherichia coli urinary tract infe ction. 2.Toxic encephalopathy secondary to sepsis, back to baseline. 3.Acute cystitis without hematuria secondary to extended-spectrum beta-lactamase Escherichia coli. 4.Diabetes mellitus type 2 with hypoglycemia, insulin requiring. 5.Hypernatremia, corrected. 6.Hyperkalemia, corrected. 7.History of cerebrovascular accident. 8.Essential hypertension, stable. 9.Chronic kidney disease stage 3. 10.Moderate protein-calorie malnutrition. Hospital Course: The patient is an 82-year-old male from nursing facility, who comes in with altered mental status. The patient is found to be septic. He had UTI, which grew out ESBL Escherichia coli . The patient was started on meropenem, which was renally dosed due to his chronic kidney disease. The patient did have electrolyte abnormalities including hypernatremia and hyperkalemia, which were c orrected. The patient did have some hypoglycemic episodes, was started on D5 half NS. Overall, the patient's white count remained stable. His sepsis improved. Blood cultures remained negative. The patient had a PICC line placed for his long-term IV antibiotics and was accepted back to the [facility]. Echocardiogram was also done, showed EF of 36% with global hypokinesis. The p atient was then cleared for discharge back to nursing facility. Medications: As per medication reconciliation list. Followup: Follow up with primary care physician in 2 to 3 days. Return to ER for worsening conditio n. The patient have weekly CBC, CMP, ESR and CRP, and to have meropenem renally dosed. Repeat urine culture after antibiotics are completed. Diet: Heart healthy. Activity: Fall precautions. The patient will need isolation room at the nursing facility due to his ESBL infection. The patient did have some wounds on his legs, which were treated with Medihoney. N o acute signs of infection. The patient was then discharged in a stable condition. Physical Examination: General: Awake, alert, oriented x2, no acute distress. Elderly male, frail, cachectic, BMI 17. CV: S1, S2. Peripheral pulses present. Respiratory: Moving air well bilaterally. Gastrointestinal: Abdomen is soft, nontender, nondistended. Positive bowel sounds. Extremities: No clubbing, cyanosis, or edema. Skin: The patient does have some healing wounds bilateral lower extremities. No signs of infection. Total time spent discharging the patient was 33 minutes. /DIAMOND Voice ID: [id number] Report ID: [id number]
== END 2018-05-24 18:41 | DRG 871 ==
LOC: ER 17:10 → ERHOLD 22:07 → 4TH 23:11
PROVIDERS: ADMIT Hospitalist; ATTEND Family Medicine
PROC: 02HV33Z Insertion of Infusion Device into Superior Vena Cava, Percutaneous Approach (ICD-10-PCS; principal; 2018-05-18)
PROC: 02HV33Z Insertion of Infusion Device into Superior Vena Cava, Percutaneous Approach (ICD-10-PCS; 2018-05-23)
PROC: B548ZZA Ultrasonography of Superior Vena Cava, Guidance (ICD-10-PCS; 2018-05-23)
DX: A41.9 Sepsis, unspecified organism (principal); I50.33 Acute on chronic diastolic (congestive) heart failure; G92 Toxic encephalopathy; N30.00 Acute cystitis without hematuria; N17.9 Acute kidney failure, unspecified; E87.0 Hyperosmolality and hypernatremia; E44.0 Moderate protein-calorie malnutrition; I13.0 Hypertensive heart and chronic kidney disease with heart failure and stage 1 through stage 4 chronic kidney disease, or unspecified chronic kidney disease; Z68.1 Body mass index [BMI] 19.9 or less, adult; R65.20 Severe sepsis without septic shock; B96.20 Unspecified Escherichia coli [E. coli] as the cause of diseases classified elsewhere; Z16.12 Extended spectrum beta lactamase (ESBL) resistance; E11.65 Type 2 diabetes mellitus with hyperglycemia; Z79.4 Long term (current) use of insulin; E87.5 Hyperkalemia; Z86.73 Personal history of transient ischemic attack (TIA), and cerebral infarction without residual deficits; G30.9 Alzheimer's disease, unspecified; F02.80 Dementia in other diseases classified elsewhere, unspecified severity, without behavioral disturbance, psychotic disturbance, mood disturbance, and anxiety; F41.9 Anxiety disorder, unspecified; J44.9 Chronic obstructive pulmonary disease, unspecified; F32.9 Major depressive disorder, single episode, unspecified; K21.9 Gastro-esophageal reflux disease without esophagitis; E78.5 Hyperlipidemia, unspecified; I25.2 Old myocardial infarction; I95.9 Hypotension, unspecified; N18.3 Chronic kidney disease, stage 3 (moderate); E11.22 Type 2 diabetes mellitus with diabetic chronic kidney disease; E11.649 Type 2 diabetes mellitus with hypoglycemia without coma
CPT/HCPCS: 36415; 70450; 71045; 80048; 80053; 81003; 81015; 82550; 82947; 82962; 83605; 84145; 84484; 85025; 87040; 87077; 87086; 87088; 87186; 87804; 93005; 93306; 94760; 97110; 97162; 97530; J0692; J0694; J0696; J1650; J7030

== ENCOUNTER 2019-06-20 12:07 | Emergency (ER) | payer OTHER ==
--- OUTSIDE RECORDS SUMMARY | 2019-06-20 12:09 | XMS REPORT ---
:1935 [facility] Address [address] [place] [address] [place] [id number] Care Team Providers Name Role Phone DR NOELLE GOLD Unavailable Unavailable Problems This patient has no known problems. Allergies, Adverse Reactions, Alerts This patient has no known allergies or adverse reactions. Medications This patient has no known medications. Encounters Start End Encounter Admission Attending Care Care Encounter Date/Time Date/Time Type Type Clinicians Facility Department ID 2017-05-20 2017-05-31 Inpatient E AMPARO GOLDYahaira [facility] [id number] 16:47:00 12:30:00 NOELLE Results Test Description Test [...] UR (test code=USPERM) /HPF NONE COMPREHENSIVE METABOLIC [id number] 19:16:00 Test Item Value Reference Range Comments [...] purposes ALCOHOL (test code=56A) <10 mg/dL <=10 [id number] 19:16:00 Test Item Value Reference Range Comments ACETAMINPH (test code=94M) <2.0 ug/mL 10.0-30.0 DRUGS OF [id number] 19:12:00 Test Item Value Reference Range Comments [...] Barbiturates 200 ng/mL Opiates 2000 ng/mL AMMONIA [id number] 19:01:00 Test Item Value Reference Range Comments AMMONIA (test code=54A) 20 umol/L 11-32 XR CHEST 1 VIEW [id number] 17:10:18Exam: Chest portable erectLocation: D4.History: medical clearanceComparison: NoneFindings:The lungs are clear. No infiltrate or effusion is seen. The pulmonaryvasculature is normal. The heart size is mildly enlarged. 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 Atherosclerosis involves the aorta. The mediastinalsilhouette is unremarkable. The bony thorax is intact with degenerative changesnoted.Impression:No acute disease.
--- NOTE | 2019-06-20 13:11 | RAD REPORT ---
EXAM DESCRIPTION: RAD - Chest Single View - 06/20/2019 12:59 pm CLINICAL HISTORY: AMS COMPARISON: Chest Single View dated 05/24/2018; Chest Single View dated 05/18/2018 TECHNIQUE: AP portable chest image was obtained 06/20/2019 12:59 pm . FINDINGS: Lung volumes slightly shallow from comparison. Right lung field is clear. There is questio nable minimal opacification posterior gutter on the left. Heart and vasculature are normal. No measur able pleural effusion and no pneumothorax. No acute bony abnormality seen. No acute aortic findings s uspected. IMPRESSION: Questionable small infiltrate posterior gutter on the left.
--- NOTE | 2019-06-20 13:17 | RAD REPORT ---
EXAM DESCRIPTION: CT - Head Brain Wo Cont - 06/20/2019 1:03 pm CLINICAL HISTORY: MENTAL STATUS CHANGE, seizure COMPARISON: Head Brain Wo Cont dated 05/18/2018 TECHNIQUE: Axial 5 mm thick images of the head were obtained without IV contrast. All CT scans are performed using dose optimization technique as appropriate and may include automated exposure control or mA/KV adjustment according to patient size. FINDINGS: No intracranial hemorrhage, mass, edema or shift of mid-line structures. No acute infarcti on changes seen. Moderate severity atrophy present with ventricles in proportion to the amount of vol ume loss. Patient has advanced chronic ischemic change in the cerebral white matter. There is an old small CVA in the posterior left frontal lobe. Dense calcifications are present along the falx and ten torium. Arterial and choroid plexus calcifications are present. Mastoid air cells and visualized portions of the paranasal sinuses are clear. No acute bony findings. IMPRESSION: Prominent atrophy and advanced chronic ischemic change similar to May 2018. No acute intracranial finding seen.
[2019-06-20 14:59] LABS: Protime INR 1.04
[2019-06-20 15:13] LABS: ALT/SGPT 34 U/L (12-78); AST/SGOT 30 U/L (15-37); Absolute Lymphocytes (CBC) 1.9 K/uL (0.7-4.9); Albumin 3.1 g/dL (3.4-5.0); Alkaline Phosphatase 55 U/L (45-117); BUN Blood Urea Nitrogen 24 mg/dL (7-18); Basophils % 1.1 % (0-1.3); Bicarbonate 27 mmol/L (21-32); Bilirubin Direct < 0.1 mg/dL (0-0.2); Bilirubin Total 0.2 mg/dL (0.2-1.0); Glucose Level 81 mg/dL (74-106); Hematocrit 35.5 % (39.6-49.0); Lymphocytes % 43.2 % (15.3-44.8); MPV 10.5 fL (7.6-11.3); Magnesium 2.4 mg/dL (1.8-2.4); NT PRO-BNP 6481 pg/mL (<450); Potassium 4.9 mmol/L (3.5-5.1); Protein, Total 7.5 g/dL (6.4-8.2); RBC Red Blood Cell Count 4.07 M/uL (4.33-5.43); Sodium Level 143 mmol/L (136-145); Troponin (Emerg Dept Use Only) 0.04 ng/mL (0.0-0.045)
--- NOTE | 2019-06-20 15:48 | ER ---
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 Transition of care: patient was not received from another setting of care. Onset of symptoms was June 20, 2019. Risk Assessment: Do you want to hurt yourself or someone else? Patient reports no desire to harm self or others. Initial Sepsis Screen: Does the patient meet any 2 criteria? No. Patient's initial sepsis screen is negative. Does the patient have a suspected source of infection? No. Patient's initial sepsis screen is negative. Care prior to arrival: None. 12:10 Method Of Arrival: EMS: [facility] em 12:10 Acuity: SYLVAIN 3 em Historical: - Allergies: 12:14 No Known Allergies; em - PMHx: 12:14 Alzheimers; Anxiety; Depression; Hyperlipidemia; Diabetes - NIDDM; GERD; Myocardial em infarction; DYSPHAGIA; Hypertension; cerebrovascular insufficiency; non ambulatory; COPD; chronid kidney disease, stage III; UTI; weakness,generalized; - PSHx: 12:14 Unable to obtain; em - Immunization history:: Adult Immunizations up to date. - Coronavirus screen:: The patient has NOT traveled to [place] in the past 14 days. The patient has NOT had contact with known/suspected case of Coronavirus?. - Social history:: Smoking status: Patient denies any tobacco usage or history of. - Ebola Screening: : Patient negative for fever greater than or equal to 101.5 degrees Fahrenheit, and additional compatible Ebola Virus Disease symptoms Patient denies exposure to infectious person Patient denies travel to an Ebola-affected area in the 21 days before illness onset No symptoms or risks identified at this time. Screenin:14 Abuse screen: Denies threats or abuse. Nutritional screening: No deficits noted. em Tuberculosis screening: No symptoms or risk factors identified. Assessment: 12:14 General: Appears in no apparent distress. comfortable, Behavior is calm, cooperative. em Pain: Denies pain. Neuro: Level of Consciousness is awake, alert, Oriented to person. Cardiovascular: Capillary refill < 3 seconds Patient's skin is warm and dry. Respiratory: Airway is patent Respiratory effort is even, unlabored, Respiratory pattern is regular, symmetrical. Derm: Skin is intact, is thin, Skin is pink, warm \T\ dry. Musculoskeletal: Capillary refill < 3 seconds, contractures noted to jaun. arms and jaun. legs. 13:43 Reassessment: unable to obtain IV access at this time. em 14:40 Reassessment: Patient appears in no apparent distress at this time. lab at bedside. em 16:09 Reassessment: report given to Eryn at [facility]. em 16:18 Reassessment: pending EMS transportation. em 16:44 Reassessment: report given to EMS. em Vital Signs: 12:14 BP 146 / 79; Pulse 87; Resp 19; Temp 97.8; Pulse Ox 100% on R/A; em 13:18 BP 101 / 89; Pulse 75; Resp 18; Pulse Ox 99% on R/A; em 15:19 BP 134 / 88; Pulse 75; Resp 18; Pulse Ox 99% on R/A; em Ladd Coma Score: 12:14 Eye Response: spontaneous(4). Verbal Response: oriented(5). Motor Response: obeys em commands(6). Total: 15. ED Course: 12:10 Patient arrived in ED. em 12:12 Triage completed. em 12:14 Arm band placed on. em 12:14 Patient has correct armband on for positive identification. Placed in gown. Bed in low em position. Call light in reach. staffing associate on. Pulse ox on. NIBP on. 12:14 Seizure precautions initiated. em 12:36 Roshan Ghotra PA is PHCP. jr8 12:36 Matias Lubin MD is Attending Physician. jr8 12:55 Donald Roberts, RENETTA is Primary Nurse. em 13:00 X-ray completed. Portable x-ray completed in exam room. Patient tolerated procedure jb2 well. 13:05 XRAY Chest (1 view) In Process Unspecified. EDMS 13:07 EKG done, by instructional technology director. reviewed by Matias Lubin MD. at1 13:10 CT Head Brain wo Cont In Process Unspecified. EDMS 13:50 Missed attempt(s): 24 gauge in left forearm. Bleeding controlled, band aid applied, em catheter tip intact. 13:55 Missed attempt(s): 22 gauge in right antecubital area. Bleeding controlled, band aid sg applied, catheter tip intact. Missed attempt(s): 24 gauge in right forearm. Bleeding controlled, band aid applied, catheter tip intact. 14:20 Missed attempt(s): 22 gauge in right antecubital area. sent labs . Bleeding controlled, em band aid applied, catheter tip intact. 14:20 Initial lab(s) drawn, by me, sent to lab. em 14:48 Lab(s) recollected, by laborer brush clearing, sent to lab. sg 16:10 No provider procedures requiring assistance completed. Patient did not have IV access em during this emergency room visit. Administered Medications: No medications were administered Outcome: 15:47 Discharge ordered by . hector 16:46 Discharged to residential. Report called to [place] Transfer form completed. em 16:46 Condition: good 16:46 Instructed on discharge instructions, Demonstrated understanding of instructions. 16:58 Patient left the ED. hb Signatures: Dispatcher [employer] EDMS Pablo Munoz, RN RN Herbie Rod Edgar, RENETTA RN Roshan Ghotra PA PA jrVero Phillip, scaffold builder EKG Tat1 Carie Knott RN RN hb
--- NOTE | 2019-06-20 15:48 | EDPHYS ---
Physician Documentation [facility] Name: Ace Zuniga Age: 83 yrs Sex: Male : 1935 Arrival Date: 06/20/2019 Time: 12:10 Bed 7 Private MD: ED Physician Matias Lubin HPI: 06/20 14:29 This 83 yrs old Black Male presents to ER via EMS with complaints of Seizure. [facility] 14:29 Seizure onset: just prior to arrival. Context: the seizure(s) was witnessed, by the [facility] fdc staff, occurred at a fdc or assisted living facility, occurred while the patient was at rest. Seizure Hx: the patient has no previous seizure history. Associated injury: The patient did not suffer any apparent associated injury. Current symptoms: Currently, the patient is not experiencing any symptoms, the patient feels back to baseline. The patient has not experienced similar symptoms in the past. The patient has not recently seen a physician. EMS was called out to [place] for suspected absent like seizure activity. Stated that he had blank stare and was not responding to them for several seconds. EMS stated that he is now back to baseline. No seizure history that they are aware of. Historical: - Allergies: 12:14 No Known Allergies; em - PMHx: 12:14 Alzheimers; Anxiety; Depression; Hyperlipidemia; Diabetes - NIDDM; GERD; Myocardial em infarction; DYSPHAGIA; Hypertension; cerebrovascular insufficiency; non ambulatory; COPD; chronid kidney disease, stage III; UTI; weakness,generalized; - PSHx: 12:14 Unable to obtain; em - Immunization history:: Adult Immunizations up to date. - Coronavirus screen:: The patient has NOT traveled to [place] in the past 14 days. The patient has NOT had contact with known/suspected case of Coronavirus?. - Social history:: Smoking status: Patient denies any tobacco usage or history of. - Ebola Screening: : Patient negative for fever greater than or equal to 101.5 degrees Fahrenheit, and additional compatible Ebola Virus Disease symptoms Patient denies exposure to infectious person Patient denies travel to an Ebola-affected area in the 21 days before illness onset No symptoms or risks identified at this time. ROS: 14:29 Unable to obtain ROS due to baseline dementia. [facility] Exam: 14:29 Eyes: Pupils equal round and reactive to light, extra-ocular motions intact. Lids and jr8 lashes normal. Conjunctiva and sclera are non-icteric and not injected. Cornea within normal limits. Periorbital areas with no swelling, redness, or edema. ENT: Nares patent. No nasal discharge, no septal abnormalities noted. Tympanic membranes are normal and external auditory canals are clear. Oropharynx with no redness, swelling, or masses, exudates, or evidence of obstruction, uvula midline. Mucous membranes moist. Neck: Trachea midline, no thyromegaly or masses palpated, and no cervical lymphadenopathy. Contracted to the right Cardiovascular: Regular rate and rhythm with a normal S1 and S2. No gallops, murmurs, or rubs. Normal PMI, no JVD. No pulse deficits. Respiratory: Lungs have equal breath sounds bilaterally, clear to auscultation and percussion. No rales, rhonchi or wheezes noted. No increased work of breathing, no retractions or nasal flaring. Abdomen/GI: Soft with normal bowel sounds. No distension or tympany. No Gaurding or grimace with palpation of abdomen Skin: Warm, dry with normal turgor. Normal color with no rashes, no lesions, and no evidence of cellulitis. MS/ Extremity: Pulses equal, no cyanosis. Neurovascular intact. 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 Speech is clear and appropriate. Tongue strength is normal, Motor: the patient is contracted, right side. , Sensation: no obvious gross deficits, Gait: not tested. seizure activity, is not displayed by the patient, Abnormal movements: there are no abnormal movements. 16:32 ECG was reviewed by the Attending Physician. jr8 Vital Signs: 12:14 BP 146 / 79; Pulse 87; Resp 19; Temp 97.8; Pulse Ox 100% on R/A; em 13:18 BP 101 / 89; Pulse 75; Resp 18; Pulse Ox 99% on R/A; em 15:19 BP 134 / 88; Pulse 75; Resp 18; Pulse Ox 99% on R/A; em Robbie Coma Score: 12:14 Eye Response: spontaneous(4). Verbal Response: oriented(5). Motor Response: obeys em commands(6). Total: 15. MDM: 12:37 Patient medically screened. 8 15:46 Differential diagnosis: cerebral vascular accident, drug overdose, cardiac arrhythmia, jr8 seizure, TIA. Data reviewed: vital signs, nurses notes, lab test result(s), EKG, radiologic studies, CT scan, plain films. Data interpreted: Pulse oximetry: on room air is 99 %. Interpretation: normal. Counseling: I had a detailed discussion with the patient and/or guardian regarding: the historical points, exam findings, and any diagnostic results supporting the discharge/admit diagnosis, lab results, radiology results, the need for outpatient follow up, a family practitioner, to return to the emergency department if symptoms worsen or persist or if there are any questions or concerns that arise at home. ED course: Patient remains at baseline. No acute findings on labs, ECG, or imaging. VS stable. Will d/c back to [facility]. 06/20 12:37 Order name: Basic Metabolic Panel; Complete Time: 15:17 06/20 12:37 Order name: CBC with Diff 06/20 12:37 Order name: LFT's; Complete Time: 15:06/20 12:37 Order name: Magnesium; Complete Time: 15:06/20 12:37 Order name: NT PRO-BNP; Complete Time: 15:17 06/20 12:37 Order name: PT-INR; Complete Time: 15:17 06/20 12:37 Order name: Troponin (emerg Dept Use Only); Complete Time: 15:17 06/20 12:37 Order name: XRAY Chest (1 view); Complete Time: 15:01 06/20 12:37 Order name: EKG; Complete Time: 12:38 06/20 12:37 Order name: Cardiac monitoring; Complete Time: 13:49 06/20 12:37 Order name: EKG - Nurse/Tech; Complete Time: 12:56 06/20 12:37 Order name: IV Saline Lock; Complete Time: 16:07 06/20 12:37 Order name: Labs collected and sent; Complete Time: 12:56 06/20 12:37 Order name: CT Head Brain wo Cont; Complete Time: 15:01 06/20 12:37 Order name: O2 Per Protocol; Complete Time: 12:56 06/20 12:37 Order name: O2 Sat Monitoring; Complete Time: 12:56 06/20 14:28 Order name: Labs - recollect needed: recollect all the blood; Complete Time: 15:33 dh4 EC:32 Rate is 76 beats/min. Rhythm is regular, Normal Sinus Rhythm. QRS [place] is Normal. [place] jr8 interval is normal at 166 msec. QRS interval is normal at 84 msec. QT interval is prolonged at 456 msec. No Q waves. T waves are Inverted in leads II, III, aVF, V4, V5, V6. No ST changes noted. Clinical impression: NSR w/ Non-specific ST/T Changes. Interpreted by me. Reviewed by me. Administered Medications: No medications were administered Disposition: 06/21 08:45 Co-signature as Attending Physician, Matias Lubin MD I agree with the assessment and kdr plan of care. Disposition: 06/20/19 15:47 Discharged to Home. Impression: Altered mental status, unspecified. - Condition is Stable. - Discharge Instructions: Seizure, Adult. - Medication Reconciliation Form, Thank You Letter, Antibiotic Education, Prescription Opioid Use form. - Follow up: Private Physician; When: 1 - 2 days; Reason: Recheck today's complaints, Continuance of care, Re-evaluation by your physician. - Problem is new. - Symptoms are resolved. Signatures: Dispatcher [employer] EDNM Matias Lubin MD MD [facility] Donald Roberts RN RN Roshan Bar PA PA jr8 Carie Knott RN RN Mukul Grimes 4 Corrections: (The following items were deleted from the chart) 06/20 16:58 15:47 06/20/2019 15:47 Discharged to Home. Impression: Altered mental status, hb unspecified. Condition is Stable. Forms are Medication Reconciliation Form, Thank You Letter, Antibiotic Education, Prescription Opioid Use. Follow up: Private Physician; When: 1 - 2 days; Reason: Recheck today's complaints, Continuance of care, Re-evaluation by your physician. Problem is new. Symptoms are resolved. jr8
[2019-06-20 17:19] VITALS: TEMP 97.8
[2019-06-20 17:21] VITALS: O2SAT 99
[2019-06-20 17:22] VITALS: BP 134/88
--- NOTE | 2019-06-21 07:53 | EKG ---
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
== END 2019-06-20 16:58 | disposition home or self-care (01) ==
LOC: ER 12:07
DX: R41.82 Altered mental status, unspecified (principal); G30.9 Alzheimer's disease, unspecified; F02.80 Dementia in other diseases classified elsewhere, unspecified severity, without behavioral disturbance, psychotic disturbance, mood disturbance, and anxiety; I12.9 Hypertensive chronic kidney disease with stage 1 through stage 4 chronic kidney disease, or unspecified chronic kidney disease; E11.22 Type 2 diabetes mellitus with diabetic chronic kidney disease; N18.3 Chronic kidney disease, stage 3 (moderate)
CPT/HCPCS: 36415; 70450; 71045; 80048; 80076; 83735; 83880; 84484; 85025; 85610; 93005; 99284